=== PATIENT | female | born 1970 | race Caucasian/White ===

== ENCOUNTER → 2018-04-19 08:17 | Outpatient (CLI) | payer OTHER, SELFPAY ==
[2018-04-19 09:55] LABS: Add Manual Diff / Slide Review NO; Basophils Absolute Auto 100 /uL (0-100); Basophils Percent Auto 0.8 % (0-2); Eosinophils Absolute Auto 400 /uL (0-450); Eosinophils Percent Auto 5.2 % (2-4); Hematocrit 44.2 % (36-46); Hemoglobin 14.6 g/dL (12.0-16.0); Lymphocytes Absolute Auto 1800 /uL (1100-4500); Lymphocytes Percent Auto 25.4 % (25-40); Mean Corpuscular HGB Conc 32.9 % (30-36); Mean Corpuscular Hemoglobin 31.6 PG (26-34); Monocytes Absolute Auto 300 /uL (0-900); Monocytes Percent Auto 4.6 % (3-14); Neutrophils Absolute Auto 4600 /uL (1500-7000); Platelet Count 185 X10^3/uL (150-400); Red Blood Cell Count 4.61 X10^6/uL (4.0-5.2); White Blood Cell Count 7.2 X10^3/uL (4.5-11.0)
[2018-04-19 09:58] LABS: HEMOLYSIS < 15 (0-50); Iron 72 ug/dL (37-170)
[2018-04-19 10:01] LABS: Alanine Aminotransferase 33 IU/L (9-52); Albumin 4.2 g/dL (3.5-5.0); Albumin Globulin Ratio 1.3 (1.0-2.8); Alkaline Phosphatase 81 U/L (38-126); Aspartate Aminotransferase 15 IU/L (14-36); BUN Creatinine Ratio 25.7 (6-22); Bilirubin Total 0.4 mg/dL (0.2-1.3); Blood Urea Nitrogen 18 mg/dL (7-17); Calcium 9.1 mg/dL (8.4-10.2); Carbon Dioxide 26 mmol/L (22-32); Chloride 103 mmol/L (98-107); Estimated Glomerular Filt Rate > 60.0 mL/min (>60); Globulin 3.2 g/dL (1.7-4.1); Glucose 96 mg/dL (70-100); HEMOLYSIS < 15 (0-50); Potassium 4.2 mmol/L (3.4-5.1); Sodium 139 mmol/L (137-145); Total Protein 7.4 g/dL (6.3-8.2)
[2018-04-19 10:11] LABS: Percent Iron Saturation 25 % (15-50); Total Iron Binding Capacity 285 ug/dL (265-497); Transferrin 213 mg/dL (206-381)
[2018-04-19 10:40] LABS: Ferritin 67.8 ng/mL (6.27-137)
[2018-04-19 11:10] LABS: Vitamin B12 386 pg/mL (239-931)
== END ==
PROVIDERS: PCP Physician Assistant; Visit Provider Nurse Practitioner Family
DX: R41.89 Other symptoms and signs involving cognitive functions and awareness (principal); R53.83 Other fatigue; R15.9 Full incontinence of feces; E03.9 Hypothyroidism, unspecified
CPT/HCPCS: 36415; 80053; 82607; 82728; 82746; 83540; 83550; 84443; 85025

== ENCOUNTER → 2018-04-25 05:56 | Outpatient (CLI) | payer OTHER, SELFPAY ==
--- NOTE | 2018-04-25 05:57 | DI.MRI.S_ITS ---
PROCEDURE: MR HEAD/BRAIN WO/W CON INDICATIONS: cognitive changes x 6 months, coordination changes, headache TECHNIQUE: Noncontrast axial T1 spin echo, axial T2 fast spin echo, sagittal and axial FLAIR, coronal T2 fast spin echo, axial gradient echo, axial diffusion and ADC through the brain. After the administration of contrast, axial and coronal 3D VIBE or T1 spin echo with fat saturation through the brain. COMPARISON: None. FINDINGS: Image quality: Excellent. CSF Spaces: Basal cisterns are patent. No extra-axial fluid collections. Ventricles are normal in size and shape. Brain: No midline shift. No intracranial bleeds or masses. No abnormal intracranial enhancement. The brainstem appears normal. Diffusion-weighted images demonstrate no acute ischemic insults. No chronic ischemic insults. Normal intravascular flow voids are present. Skull and face: Calvarial marrow is normal in signal. Orbits appear normal. Bilateral maxillary sinus disease, mild (right greater than left). There is minimal sphenoid sinus mucosal enhancement IMPRESSION: Overall, no specific intracranial signal abnormality identified. No abnormal enhancement. Mild sinus disease as above Dictated by: Richard Segundo M.D. on 04/25/2018 at 9:16 Approved by: Richard Segundo M.D. on 04/25/2018 at 9:21
== END ==
PROVIDERS: PCP Physician Assistant; Visit Provider Nurse Practitioner Family
DX: R41.89 Other symptoms and signs involving cognitive functions and awareness (principal); R27.8 Other lack of coordination; R51 Headache; J32.0 Chronic maxillary sinusitis; R15.9 Full incontinence of feces; R53.83 Other fatigue
CPT/HCPCS: 70553

== ENCOUNTER → 2018-05-09 12:36 | Outpatient (CLI) | payer OTHER, SELFPAY ==
[2018-05-09 13:27] LABS: C-Reactive Protein Quant 1.2 mg/dL (<1.0)
[2018-05-12 21:23] LABS: (tTG) Ab, IgA < 1 U/mL
[2018-05-13 13:03] LABS: 18 kD IgG Band Nonreactive; 23 kD IgG Band Nonreactive; 28 kD IgG Band Nonreactive; 30 kD IgG Band Nonreactive; 39 kD IgG Band Nonreactive; 41 kD IgG Bands Reactive; 45 kD IgG Band Nonreactive; 58 kD IgG Band Nonreactive; 66 kD IgG Band Nonreactive; 93 kD IgG Bands Reactive
[2018-05-13 14:53] LABS: Thyroglobulin Antibodies 5 IU/mL (< 2); Thyroglobulin Level 3.7 ng/mL (2.8-40.9)
[2018-05-14 21:48] LABS: Methylmalonic Acid 158 nmol/L (87-318)
== END ==
PROVIDERS: Family Provider Physician Assistant; PCP Physician Assistant; Visit Provider Psychiatry & Neurology Neurology
DX: R32 Unspecified urinary incontinence (principal); R41.841 Cognitive communication deficit; R15.9 Full incontinence of feces
CPT/HCPCS: 36415; 83516; 83921; 84432; 86038; 86140; 86255; 86618; 86800

== ENCOUNTER → 2018-07-25 07:51 | Outpatient (CLI) | payer OTHER, SELFPAY ==
--- NOTE | 2018-07-25 | DI.MRI.S_ITS ---
PROCEDURE: MR THORACIC SPINE WO CON INDICATIONS: URINARY AND FECAL INCONTINENCE. LEFT SIDED MID BACK PAIN TECHNIQUE: Noncontrast sagittal T1 spine echo and T2 fast spin echo, sagittal STIR, axial T1 and T2 fast spin echo through the thoracic spine. COMPARISON: None. FINDINGS: Image quality: Excellent. Alignment and Curvature: There is normal bony alignment. Bone Marrow: Marrow is of normal overall signal. No acute vertebral body compression fractures. Spinal Cord: Visualized spinal cord is normal in size and signal. Paraspinous Soft Tissues: No paravertebral masses. Miscellaneous: On axial images, central canal and foramina appear widely patent at all scanned levels. IMPRESSION: 1. Negative examination. 2. No central stenosis 3. No neural foraminal narrowing Or print no neural impingement 5. No abnormal spinal cord signal. Dictated by: Azalea Gallardo MD, PhD on 07/25/2018 at 14:57 Approved by: Azalea Gallardo MD, PhD on 07/25/2018 at 15:00
--- NOTE | 2018-07-25 | DI.MRI.S_ITS ---
PROCEDURE: MR LUMBAR SPINE WO CON INDICATIONS: URINARY AND FECAL INCONTINENCE. RIGHT LEG PAIN TECHNIQUE: Noncontrast sagittal T1 spin echo and T2 fast echo, sagittal STIR, axial T1 and T2 fast spin echo through the lumbar spine. In cases with scoliosis, additional coronal T2 fast spin echo may be performed. COMPARISON: None. FINDINGS: Image quality: Excellent. Alignment and Curvature: There is normal bony alignment. Bone Marrow: Marrow is of normal overall signal. No acute vertebral body compression fractures. Spinal Cord: Conus medullaris terminates at the L1 level. Visualized cord demonstrates normal signal and size. Paraspinous Soft Tissues: No paravertebral masses. L1-L2: Normal appearance. L2-L3: Normal appearance. L3-L4: Slight loss of the signal. Minimal, diffuse disc bulge. No central stenosis. No neural foraminal narrowing. No neural impingement. L4-L5: Loss of disc signal. Minimal, diffuse disc bulge. No central stenosis. No neural foraminal narrowing. No neural impingement. Focal high intensity zone noted in the right foraminal annulus compatible with a fissure. L5-S1: Loss of disc signal. Minimal, diffuse disc bulge. Mild bilateral facet hypertrophy. No central stenosis. No neural foraminal narrowing. No neural impingement. Focal high intensity zone is noted in the right foraminal annulus compatible with a fissure. IMPRESSION: 1. Mild L3-L4, L4-L5 and L5-S1 degenerative disc disease. 2. Mild L5-S1 facet arthropathy. 3. No central stenosis. 4. No neural foraminal narrowing. 5. No neural impingement. 6. L4-L5 and L5-S1 disc annulus fissures. Dictated by: Azalea Gallardo MD, PhD on 07/25/2018 at 15:00 Approved by: Azalea Gallardo MD, PhD on 07/25/2018 at 15:04
--- NOTE | 2018-07-25 | DI.MRI.S_ITS ---
PROCEDURE: MR CERVICAL SPINE WO CON INDICATIONS: URINARY AND FECAL INCONTINENCE. RIGHT SIDED NECK PAIN TECHNIQUE: Noncontrast sagittal T1 spin echo and T2 fast spin echo, sagittal STIR, foraminal oblique sagittal T2 fast spin echo, and axial gradient echo or T2 fast spin echo through the cervical spine. COMPARISON: None. FINDINGS: Image quality: Excellent. Alignment and Curvature: There is normal bony alignment. Bone Marrow: Marrow demonstrates normal overall signal. There is mild reactive signal within the endplates adjacent to the C4-C5 and C5-C6 intervertebral disc. Spinal Cord: Visualized spinal cord has normal size and signal. No cerebellar tonsillar herniation. Paraspinous Soft Tissues: No paravertebral masses. Prevertebral soft tissues are normal in thickness. C2-C3: Normal appearance. C3-C4: Normal appearance. C4-C5: Mild disc height loss and desiccation. Mild diffuse disc bulge. Mild facet hypertrophy bilaterally. Mild canal stenosis. Mild bilateral foraminal stenosis. C5-C6: Mild disc height loss and desiccation. Moderate diffuse disc bulge. Mild facet hypertrophy bilaterally. There is moderate to severe canal stenosis. Mild cord flattening. Moderate left and mild right foraminal stenosis. C6-C7: Mild disc desiccation. No significant canal, nor foraminal stenosis. C7-T1: Normal appearance. IMPRESSION: 1. Multilevel degenerative disc and facet disease. 2. Multilevel canal stenoses, worst at C5-C6, where there is moderate to severe canal stenosis with mild cord flattening. 3. Multilevel foraminal stenoses, worst on the left at C5-C6 where there is moderate foraminal stenosis. Dictated by: Dylan Benitez M.D. on 07/25/2018 at 11:43 Approved by: Dylan Benitez M.D. on 07/25/2018 at 11:51
== END ==
PROVIDERS: Family Provider Physician Assistant; PCP Physician Assistant; Visit Provider Psychiatry & Neurology Neurology
DX: M50.321 Other cervical disc degeneration at C4-C5 level (principal); M79.604 Pain in right leg; M48.02 Spinal stenosis, cervical region; M47.817 Spondylosis without myelopathy or radiculopathy, lumbosacral region; M51.36 Other intervertebral disc degeneration, lumbar region; M51.37 Other intervertebral disc degeneration, lumbosacral region; R32 Unspecified urinary incontinence; R15.9 Full incontinence of feces
CPT/HCPCS: 72141; 72146; 72148

== ENCOUNTER → 2018-12-29 09:53 | Outpatient (CLI) | payer OTHER, SELFPAY | PROVIDERS: Family Provider Physician Assistant; PCP Physician Assistant; Visit Provider Physician Assistant | DX: N30.01 Acute cystitis with hematuria (principal) | CPT/HCPCS: 87077; 87086; 87186 ==

== ENCOUNTER → 2019-04-04 12:47 | Outpatient (CLI) | payer OTHER, SELFPAY | PROVIDERS: Family Provider Physician Assistant; PCP Physician Assistant; Visit Provider Physician Assistant | DX: R30.0 Dysuria (principal) | CPT/HCPCS: 87077; 87086; 87186 ==

== ENCOUNTER → 2020-06-15 14:44 | Outpatient (CLI) | payer OTHER, SELFPAY ==
[2020-06-15 15:04] LABS: Hematocrit 40.7 % (36-46); Hemoglobin 13.6 g/dL (12.0-16.0); Mean Corpuscular HGB Conc 33.3 % (30-36); Mean Corpuscular Volume 93.1 fL (80-100); Platelet Count 205 X10^3/uL (150-400); Red Blood Cell Count 4.37 X10^6/uL (4.0-5.2); Red Cell Distribution Width 12.7 % (11.6-14.8); White Blood Cell Count 8.2 X10^3/uL (4.5-11.0)
[2020-06-15 15:15] LABS: Alanine Aminotransferase 20 IU/L (<35); Albumin 4.4 g/dL (3.5-5.0); Albumin Globulin Ratio 1.4 (1.0-2.8); Alkaline Phosphatase 93 U/L (38-126); Aspartate Aminotransferase 19 IU/L (14-36); BUN Creatinine Ratio 31.5 (6-22); Bilirubin Total 0.5 mg/dL (0.2-1.3); Blood Urea Nitrogen 23 mg/dL (7-17); Calcium 9.9 mg/dL (8.4-10.2); Carbon Dioxide 27 mmol/L (22-32); Chloride 106 mmol/L (98-107); Estimated Glomerular Filt Rate > 60.0 mL/min (>60); Globulin 3.1 g/dL (1.7-4.1); Glucose 90 mg/dL (70-100); HEMOLYSIS < 15 (0-50); Potassium 3.9 mmol/L (3.4-5.1); Sodium 140 mmol/L (137-145); Total Protein 7.5 g/dL (6.3-8.2)
[2020-06-15 15:32] LABS: Free T4, Direct Thyroxine 1.15 ng/dL (0.78-2.19)
[2020-06-15 15:47] LABS: Thyroid Stimulating Hormone 0.124 uIU/mL (0.47-4.68)
== END ==
PROVIDERS: Family Provider Physician Assistant; PCP Nurse Practitioner Family; Referring Provider Nurse Practitioner Family; Visit Provider Nurse Practitioner Family
DX: E03.9 Hypothyroidism, unspecified (principal); Z00.00 Encounter for general adult medical examination without abnormal findings
CPT/HCPCS: 36415; 80053; 84439; 84443; 85027

== ENCOUNTER → 2020-07-12 15:20 | Outpatient (CLI) | payer OTHER, SELFPAY ==
[2020-07-12 16:19] LABS: Hemoglobin 13.8 g/dL (12.0-16.0); Mean Corpuscular HGB Conc 34.5 % (30-36); Mean Corpuscular Hemoglobin 32.3 PG (26-34); Mean Corpuscular Volume 93.4 fL (80-100); Platelet Count 200 X10^3/uL (150-400); Red Blood Cell Count 4.28 X10^6/uL (4.0-5.2); White Blood Cell Count 7.3 X10^3/uL (4.5-11.0)
[2020-07-12 17:20] LABS: Alanine Aminotransferase 21 IU/L (<35); Albumin 4.1 g/dL (3.5-5.0); Albumin Globulin Ratio 1.2 (1.0-2.8); Alkaline Phosphatase 93 U/L (38-126); Aspartate Aminotransferase 22 IU/L (14-36); BUN Creatinine Ratio 18.8 (6-22); Bilirubin Total 0.7 mg/dL (0.2-1.3); Blood Urea Nitrogen 13 mg/dL (7-17); Calcium 9.5 mg/dL (8.4-10.2); Carbon Dioxide 28 mmol/L (22-32); Chloride 104 mmol/L (98-107); Cholesterol 145 mg/dL (140-199); Estimated Glomerular Filt Rate > 60.0 mL/min (>60); Globulin 3.3 g/dL (1.7-4.1); Glucose 112 mg/dL (70-100); HDL Cholesterol 39 mg/dL (40-60); HEMOLYSIS < 15 (0-50); LDL Cholesterol Calculated 87 mg/dL (<100); Potassium 3.8 mmol/L (3.4-5.1); Sodium 138 mmol/L (137-145); Total Protein 7.4 g/dL (6.3-8.2); Triglycerides 96 mg/dL (35-150)
[2020-07-12 17:52] LABS: TSH w/ Reflex to FT4 0.94 uIU/mL (0.47-4.68)
[2020-07-12 18:40] LABS: Free T4, Direct Thyroxine 1.32 ng/dL (0.78-2.19)
[2020-07-13 16:41] LABS: Hemoglobin A1C% w Est Avg Glu 5.1 % (4.0-6.0)
== END ==
PROVIDERS: Family Provider Physician Assistant; PCP Nurse Practitioner Family; Referring Provider Nurse Practitioner Family; Visit Provider Nurse Practitioner Family
DX: F32.9 Major depressive disorder, single episode, unspecified (principal); Z13.6 Encounter for screening for cardiovascular disorders; E03.9 Hypothyroidism, unspecified; R73.09 Other abnormal glucose
CPT/HCPCS: 36415; 80053; 80061; 83036; 84439; 84443; 85027

== ENCOUNTER → 2021-07-17 09:21 | Outpatient (CLI) | payer OTHER, SELFPAY ==
[2021-07-17 09:51] LABS: Hematocrit 40.4 % (36-46); Hemoglobin 13.7 g/dL (12.0-16.0); Mean Corpuscular Volume 91.3 fL (80-100); Platelet Count 172 X10^3/uL (150-400); Red Blood Cell Count 4.42 X10^6/uL (4.0-5.2); Red Cell Distribution Width 13.2 % (11.6-14.8); White Blood Cell Count 6.8 X10^3/uL (4.5-11.0)
[2021-07-17 10:05] LABS: Alanine Aminotransferase 17 IU/L (<35); Albumin 4.2 g/dL (3.5-5.0); Albumin Globulin Ratio 1.2 (1.0-2.8); Alkaline Phosphatase 83 U/L (38-126); Aspartate Aminotransferase 17 IU/L (14-36); BUN Creatinine Ratio 18.8 (6-22); Bilirubin Total 0.4 mg/dL (0.2-1.3); Blood Urea Nitrogen 16 mg/dL (7-17); Calcium 9.2 mg/dL (8.4-10.2); Carbon Dioxide 27 mmol/L (22-32); Chloride 108 mmol/L (98-107); Cholesterol 166 mg/dL (140-199); Estimated Glomerular Filt Rate > 60 mL/min (>60); Globulin 3.6 g/dL (1.7-4.1); Glucose 104 mg/dL (70-100); HDL Cholesterol 46 mg/dL (40-60); HEMOLYSIS < 15 (0-50); LDL Cholesterol Calculated 104 mg/dL (<100); Potassium 4.5 mmol/L (3.4-5.1); Sodium 142 mmol/L (137-145); Total Protein 7.8 g/dL (6.3-8.2); Triglycerides 80 mg/dL (35-150)
[2021-07-17 10:21] LABS: Free T4, Direct Thyroxine 1.16 ng/dL (0.78-2.19)
[2021-07-17 10:35] LABS: Thyroid Stimulating Hormone 0.075 uIU/mL (0.47-4.68)
== END ==
PROVIDERS: Family Provider Physician Assistant; PCP Nurse Practitioner Family; Referring Provider Nurse Practitioner Family; Visit Provider Nurse Practitioner Family
DX: Z00.00 Encounter for general adult medical examination without abnormal findings (principal); F32.1 Major depressive disorder, single episode, moderate; F41.9 Anxiety disorder, unspecified; E03.9 Hypothyroidism, unspecified; Z13.6 Encounter for screening for cardiovascular disorders
CPT/HCPCS: 36415; 80053; 80061; 84439; 84443; 85027

== ENCOUNTER → 2021-08-29 11:06 | Outpatient (CLI) | payer OTHER, SELFPAY ==
[2021-08-29 12:57] LABS: Thyroid Stimulating Hormone 0.196 uIU/mL (0.47-4.68)
== END ==
PROVIDERS: Family Provider Physician Assistant; PCP Nurse Practitioner; Referring Provider Physician Assistant Medical; Visit Provider Physician Assistant Medical
DX: L73.2 Hidradenitis suppurativa (principal); E03.9 Hypothyroidism, unspecified; F41.9 Anxiety disorder, unspecified; F51.05 Insomnia due to other mental disorder; F99 Mental disorder, not otherwise specified
CPT/HCPCS: 36415; 84443

== ENCOUNTER 2022-02-18 09:25 | Emergency (ER) | payer OTHER, SELFPAY ==
[2022-02-18] VITALS (8 sets, daily range): BP systolic 109–142; BP diastolic 53–68; PULSE 61–84; RESP 18; TEMP 36.1; O2SAT 97–100; BMI 28.8
[2022-02-18] MEDS: ONDANSETRON 4 MG/2 ML INJ IV (09:51)
[2022-02-18] MEDS: PANTOPRAZOLE 40 MG VIAL IV (09:51)
[2022-02-18] MEDS: HYDROMORPHONE 0.5 MG INJ IV (09:51)
[2022-02-18] MEDS: SODIUM CHLORIDE 0.9% 1,000 ML 1000 ML IV (09:52)
--- NOTE | 2022-02-18 09:55 | ED.ABDPAIN ---
HPI - Abdominal Pain General Chief Complaint: Abdominal Pain Stated Complaint: abd pain, vomiting Time Seen by Provider: 02/18/22 09:31 Source: patient and family Mode of arrival: Family Vehicle History of Present Illness HPI narrative: Patient is a 51-year-old female history of hypothyroid appendectomy cholecystectomy hysterectomy presenting today with sudden onset of lower abdominal pain. She is in quite a bit of pain she said it started around 6:00 a.m.. She was in her normal state of health yesterday. She feels nauseous she has not vomited. She denies any fever. She denies any flank pain. She does not feel like her abdomen is distended. She is never had anything quite like this before she did have kidney stones once a long time ago. Related Data Previous Rx's Medication Instructions Recorded hydroxyzine pamoate 25 mg capsule 25 mg PO TID PRN anxiety #90 caps 04/19/21 clindamycin phosphate 1 % topical 1 applic topical BID #60 mL 07/17/21 solution doxycycline monohydrate 100 mg See Rx Instructions .Route 08/28/21 capsule .COMPLEX #46 caps sertraline 100 mg tablet 200 mg PO DAILY #60 tabs 08/28/21 levothyroxine 50 mcg tablet 50 mcg PO DAILY #90 tabs 08/29/21 alprazolam 0.25 mg tablet 0.25 mg PO BEDTIME PRN 09/07/21 Sleeplessness #30 tabs eszopiclone 2 mg tablet 2 mg PO BEDTIME #90 tabs 10/03/21 hydrocodone 5 mg-acetaminophen 325 1 tab PO Q6H PRN pain #10 tabs 02/18/22 mg tablet ondansetron 4 mg disintegrating 4 mg PO Q8H #10 tabs 02/18/22 tablet Allergies Allergy/AdvReac Type Severity Reaction Status Date / Time ciprofloxacin Allergy Severe DOMINIK Verified 07/17/21 09:56 JOHNSONS SYNDROME penicillin G Allergy Severe Anaphylaxic Verified 07/17/21 09:56 Shock Review of Systems Review of Systems Narrative: GENERAL: Denies chills, fatigue, malaise, fever, sweats, travel HEENT: Denies sinus pain, ear pain, sore throat, difficulty swallowing, neck pain RESPIRATORY: Denies dyspnea, cough, wheezing, hemoptysis, sputum. CARDIOVASCULAR: Denies chest pain, palpitations, orthopnea, edema GASTROINTESTINAL: See HPI : Denies dysuria, frequency, incontinence, hematuria, urinary retention, flank pain. MUSCULOSKELETAL: Denies weakness, joint pain, or bony pain SKIN: No rash, no erythema, no pruritus NEUROLOGIC: Denies weakness, dizziness, headache, numbness, change in speech, confusion PSYCHIATRIC: No concerning psychosocial issues. 12 point review of systems is negative except for those stated above and HPI Patient History Medical History Anxiety Current smoker Depression (2004) Hidradenitis suppurativa (1999) Hypothyroidism Insomnia Social History Smoking Status: Current some day smoker Tobacco: How many years used: 30 quit status: considering quitting second hand exposure: Yes alcohol intake: never substance use type: does not use Smoking Status: Current some day smoker tobacco type: e-cigarettes and vaping alcohol intake frequency: 0-2 drinks per day Substance Use Type: does not use Exam Initial Vital Signs Initial Vital Signs: Vital Signs Temperature 97.0 F L 02/18/22 09:39 Pulse Rate 73 02/18/22 09:39 Respiratory Rate 18 02/18/22 09:39 Blood Pressure 142/68 H 02/18/22 09:39 Pulse Oximetry 97 02/18/22 09:39 Oxygen Delivery Method 02/18/22 09:39 GENERAL: Alert 51-year-old female appears in severe pain moaning actively dry heaving HEENT: Head atraumatic,EOMI, pupils reactive, face symmetric, moist mucous membranes CARDIOVASCULAR: Regular rate and rhythm without murmurs, rubs or gallops. RESPIRATORY: Breath sounds equal bilaterally, no wheezes rales or rhonchi. ABDOMEN: Soft, suprapubic pain no guarding no rebound no upper abdominal pain no epigastric pain or right upper quadrant pain : No CVA tenderness EXTREMITIES: Normal range of motion, no clubbing or edema. Neurovascularly intact NEUROLOGICAL: Alert and oriented x4. SKIN: Warm, dry, no laceration, no petechiae, no rashes or lesions. Course Orders Ordered: ED Orders 02/18/22 09:35 Covid-19 + FLU A/B + RSV - PCR Stat 02/18/22 09:40 Complete Blood Count AUTO DIFF Stat Comprehensive Metabolic Panel Stat Lactate (Lactic Acid) Stat Lipase Stat Thyroid Stimulating Hormone Routine 02/18/22 09:56 CT abdomen pelvis w con Stat 02/18/22 11:26 Urinalysis and Microscopic Stat Discontinued Medications Hydromorphone HCl (Hydromorphone 0.5 Mg Inj) 0.5 mg IV NOW ONE Stop: 02/18/22 09:32 Last Admin: 02/18/22 09:51 Dose: 0.5 mg Documented By: NR Hydromorphone HCl (Hydromorphone 1 Mg Inj) 1 mg IV NOW ONE Stop: 02/18/22 09:57 Last Admin: 02/18/22 10:19 Dose: 1 mg Documented By: NR Sodium Chloride (Normal Saline 0.9%) 1,000 mls @ 1,000 mls/hr IV BOLUS ONE Stop: 02/18/22 10:31 Last Infusion: 02/18/22 11:17 Dose: 0 mls/hr Documented By: Admin: 02/18/22 09:52 Dose: 1,000 mls/hr Documented By: NR Ketorolac Tromethamine (Ketorolac 30 Mg/Ml Vial) 15 mg IV NOW ONE Stop: 02/18/22 11:20 Last Admin: 02/18/22 11:28 Dose: 15 mg Documented By: NR Ondansetron HCl (Ondansetron 4 Mg/2 Ml Inj) 4 mg IV NOW ONE Stop: 02/18/22 09:32 Last Admin: 02/18/22 09:51 Dose: 4 mg Documented By: NR Pantoprazole Sodium (Pantoprazole 40 Mg Vial) 40 mg IV NOW ONE Stop: 02/18/22 09:32 Last Admin: 02/18/22 09:51 Dose: 40 mg Documented By: NR Vital Signs Vital signs: Vital Signs - 8 hr 02/18/22 09:39 02/18/22 09:52 02/18/22 10:00 Temperature 97.0 F L Pulse Rate 73 66 61 Respiratory Rate 18 Blood Pressure 142/68 H Pulse Oximetry 97 99 99 Oxygen Delivery Method Room Air 02/18/22 10:58 02/18/22 10:59 02/18/22 10:59 Temperature Pulse Rate 83 75 Respiratory Rate Blood Pressure 122/59 L Pulse Oximetry 97 99 Oxygen Delivery Method 02/18/22 11:00 02/18/22 11:00 02/18/22 12:12 Temperature Pulse Rate 84 Respiratory Rate Blood Pressure 110/59 L Pulse Oximetry 99 100 Oxygen Delivery Method 02/18/22 12:13 02/18/22 12:13 Temperature Pulse Rate 76 Respiratory Rate Blood Pressure 109/53 L Pulse Oximetry 100 Oxygen Delivery Method MDM - Abdominal Pain Lab Data Result diagrams: 02/18/22 09:40 02/18/22 09:40 Labs: Lab Results 02/18/22 02/18/22 02/18/22 Range/Units 09:35 09:40 09:40 WBC 8.4 (4.5-11.0) X10^3/uL RBC 4.53 (4.0-5.2) X10^6/uL Hgb 13.9 (12.0-16.0) g/dL Hct 41.4 (36-46) % MCV 91.5 (80-100) fL MCH 30.7 (26-34) PG MCHC 33.5 (30-36) % RDW 13.3 (11.6-14.8) % Plt Count 205 (150-400) X10^3/uL Neut % (Auto) 74.9 (50-75) % Lymph % (Auto) 19.1 L (25-40) % [place] % (Auto) 3.2 (3-14) % Eos % (Auto) 1.8 L (2-4) % Baso % (Auto) 1.0 (0-2) % Neut # (Auto) 6300 (1943-4707) /uL Lymph # (Auto) 1600 (4879-6245) /uL [place] # (Auto) 300 (0-900) /uL Eos # (Auto) 100 (0-450) /uL Baso # (Auto) 100 (0-100) /uL Sodium 139 (137-145) mmol/L Potassium 3.6 (3.4-5.1) mmol/L Chloride 104 (98-107) mmol/L Carbon Dioxide 23 (22-32) mmol/L BUN 20 H (7-17) mg/dL Creatinine 0.79 (0.52-1.04) mg/dL Estimated GFR > 60 (>60) mL/min BUN/Creatinine Ratio 25.3 H (6-22) Glucose 139 H (70-100) mg/dL Lactate (0.7-2.1) mmol/L Calcium 9.4 (8.4-10.2) mg/dL Total Bilirubin 0.4 (0.2-1.3) mg/dL AST 17 (14-36) IU/L ALT 20 (<35) IU/L Alkaline Phosphatase 92 (38-126) U/L Total Protein 8.0 (6.3-8.2) g/dL Albumin 4.3 (3.5-5.0) g/dL Globulin 3.7 (1.7-4.1) g/dL Albumin/Globulin Ratio 1.2 (1.0-2.8) Lipase 85 (23-300) U/L TSH (0.47-4.68) uIU/mL Urine Color Urine Appearance Urine pH (4.5-8.0) Ur Specific [place] (1.000-1.035) Urine Protein (Negative) Urine Glucose (UA) (Negative) g/dL Urine Ketones (NEGATIVE) Urine Occult Blood (Negative) Urine Nitrate (Negative) Urine Bilirubin (NEGATIVE) Urine Urobilinogen (0.2) E.U./dL Ur Leukocyte Esterase (NEGATIVE) Urine RBC (0-5/HPF) Urine WBC (0-5/HPF) Ur Squamous Epith Cells (0-5/HPF) Urine Bacteria (None) Ur Culture Indicated? SARS-CoV-2 (PCR) Negative (Negative) Influenza A (RT-PCR) Flu a negative (NEGATIVE) Influenza B (RT-PCR) Flu b negative (NEGATIVE) RSV (PCR) Negative (Negative) 02/18/22 02/18/22 02/18/22 Range/Units 09:40 09:40 11:26 WBC (4.5-11.0) X10^3/uL RBC (4.0-5.2) X10^6/uL Hgb (12.0-16.0) g/dL Hct (36-46) % MCV (80-100) fL MCH (26-34) PG MCHC (30-36) % RDW (11.6-14.8) % Plt Count (150-400) X10^3/uL Neut % (Auto) (50-75) % Lymph % (Auto) (25-40) % [place] % (Auto) (3-14) % Eos % (Auto) (2-4) % Baso % (Auto) (0-2) % Neut # (Auto) (3124-8295) /uL Lymph # (Auto) (2400-6501) /uL [place]comb # (Auto) (0-900) /uL Eos # (Auto) (0-450) /uL Baso # (Auto) (0-100) /uL Sodium (137-145) mmol/L Potassium (3.4-5.1) mmol/L Chloride (98-107) mmol/L Carbon Dioxide (22-32) mmol/L BUN (7-17) mg/dL Creatinine (0.52-1.04) mg/dL Estimated GFR (>60) mL/min BUN/Creatinine Ratio (6-22) Glucose (70-100) mg/dL Lactate 2.1 (0.7-2.1) mmol/L Calcium (8.4-10.2) mg/dL Total Bilirubin (0.2-1.3) mg/dL AST (14-36) IU/L ALT (<35) IU/L Alkaline Phosphatase (38-126) U/L Total Protein (6.3-8.2) g/dL Albumin (3.5-5.0) g/dL Globulin (1.7-4.1) g/dL Albumin/Globulin Ratio (1.0-2.8) Lipase (23-300) U/L TSH 9.31 H (0.47-4.68) uIU/mL Urine Color Yellow Urine Appearance Clear Urine pH 5.0 (4.5-8.0) Ur Specific [place] 1.010 (1.000-1.035) Urine Protein Negative (Negative) Urine Glucose (UA) Negative (Negative) g/dL Urine Ketones Negative (NEGATIVE) Urine Occult Blood 3+ H (Negative) Urine Nitrate Negative (Negative) Urine Bilirubin Negative (NEGATIVE) Urine Urobilinogen 0.2 (0.2) E.U./dL Ur Leukocyte Esterase Negative (NEGATIVE) Urine RBC 10-30/hpf H (0-5/HPF) Urine WBC 0-1/hpf (0-5/HPF) Ur Squamous Epith Cells 0-1 /hpf (0-5/HPF) Urine Bacteria Occasional (0-1) (None) Ur Culture Indicated? Cult not indicated SARS-CoV-2 (PCR) (Negative) Influenza A (RT-PCR) (NEGATIVE) Influenza B (RT-PCR) (NEGATIVE) RSV (PCR) (Negative) Point of care testing: Urine Dip Bedside Urine Glucose Negative Bedside Urine Bilirubin - Negative Bedside Urine Ketone - Negative Urine Specific [place] 1.010 Bedside Urine Occult Blood +++ Bedside Urine pH 5.5 Bedside Urine Protein - Negative Bedside Urine Urobilinogen - Negative Bedside Urine Nitrite - Negative Bedside Urine Leukocytes - Negative Esterase Imaging Data CT scan - abdomen/pelvis: Radiologist's Impression: CT Scan Report Signed Patient: Agata Garcia MR#: [id number] : 1970 Acct:[id number] Age/Sex: 51 / F Date of Service: 02/18/22 Loc: ED Accession Number: [id number] ?? Procedure: CT abdomen pelvis w con Ordering Provider: Dina Tom D.O. PROCEDURE:? CT ABDOMEN PELVIS W CON ? INDICATIONS:? severe lower pain with vomiting ? TECHNIQUE:? After the administration of intravenous contrast, axial sections acquired from the lung bases to the pubic symphysis.? Coronal and sagittal reformats were performed.? For radiation dose reduction, the following was used:? automated exposure control, adjustment of mA and/or kV according to patient size.? ? COMPARISON:? [facility], CT, ABDOMEN/PELVIS WITH CONTRAST, 07/20/2012, 10:51. ? FINDINGS:? Image quality:? Good ? Lower chest:? Scattered scarring/atelectasis ? Solid organs:? 1.3 cm enhancing region at the liver dome, faintly visible in 2013, likely benign. Gallbladder is absent.? Prominent biliary tree post cholecystectomy.? No pathologic dilation of the pancreatic duct.? No splenomegaly.? No adrenal nodules.? No left hydronephrosis.? There is a 3-4 mm right distal ureter stone.? Moderate upstream hydronephrosis with slightly delayed nephrogram. ? Vessels and lymph nodes:? No abdominal aortic aneurysm or pathologic adenopathy by size criteria. ? Bowel and peritoneum:? No bowel obstruction.? No pathologic ascites. ? Body wall:? Anterior abdominal wall hernia repair changes, with underlying postsurgical fluid containing material. ? Pelvis:? Hysterectomy.? Bladder is under distended limiting evaluation ? Bones:? No acute or suspicious osseous abnormality. ? ? IMPRESSION:? 3-4 mm right distal ureter stone with moderate upstream hydronephrosis and CT evidence of obstructive nephropathy. Other findings as above.? ? ? Approved by: Jerod Spear M.D. on 02/18/2022 at 9:51? [facility] Narrative Medical decision making narrative: Patient is a 51-year-old female presenting with severe pain. She is found have a non obstruction 3-4 mm left ureteral stone. There is no evidence of acute kidney injury or UTI. Pain is better controlled with Dilaudid. Blood work is otherwise reassuring. At this time there is no indication for further workup or admission to the hospital. There are child care team lead visits reviewed for anxiety and depression last is 11/01/2021, no significant findings. Discharge Plan Departure Patient Disposition: Home Clinical Impression: Kidney stones Instructions: DI for Kidney Stones Activity Restrictions/Additional Instructions: *You have been diagnosed with kidney stone left side 3-4 mm *What to do: At this time increase fluid intake I anticipate that you pass the stone in the next 24-48 hours *Continue to take medications as directed--> SENT TO [facility] Motrin 600 mg every 6 hours if needed [place] 1 tablet every 6 hours if needed for severe pain Zofran 4 mg every 8 hours if needed for nausea or vomiting *Follow up with your primary care provider in 2-3 days or call [phone] *Return to ER if you should have persistent vomiting pain not controlled despite medication or any new, worsening or concerning symptoms CONTROLLED SUBSTANCE DISCHARGE (Narcotoic/benzodiazepine/Flexeril/Phenergan) 1. You have been prescribed narcotic medications, it does have acetaminophen/Tylenol/paracetamol in it, DO NOT TAKE MORE THAN 4,00mg in 24 hours of Tylenol. TRAMADOL DOES NOT CONTAIN TYLENOL 2. Please understand that we cannot provide further refills of narcotics, benzodiazepines or controlled substances through the ED and her pain management will need to be through your provider. 3. While on these medications you cannot drive or operate heavy machinery. 4. You cannot sign legal documents or perform any duties such as this. 5. As long as you're taking opiate pain medications he should also be taking a stool softener such as Colace, Dulcolax, MiraLAX or prune juice, to help avoid constipation. Prescriptions: New hydrocodone-acetaminophen 5-325 mg tablet 1 tab PO Q6H PRN (Reason: pain) Qty: 10 0RF ondansetron 4 mg tablet,disintegrating 4 mg PO Q8H Qty: 10 0RF No Action doxycycline monohydrate 100 mg capsule See Rx Instructions .ROUTE .COMPLEX Qty: 46 0RF Dose Instruction: take 1 capsule by mouth twice a day for 2 weeks then once daily UNTIL CLEAR Rx Instructions: take 1 capsule by mouth twice a day for 2 weeks then once daily UNTIL CLEAR sertraline 100 mg tablet 200 mg PO DAILY Qty: 60 0RF levothyroxine 50 mcg tablet 50 mcg PO DAILY Qty: 90 1RF eszopiclone 2 mg tablet 2 mg PO BEDTIME Qty: 90 3RF hydroxyzine pamoate 25 mg capsule 25 mg PO TID PRN (Reason: anxiety) Qty: 90 1RF Rx Instructions: may make drowsy, do not drive clindamycin phosphate 1 % solution 1 applic topical BID Qty: 60 1RF alprazolam 0.25 mg tablet 0.25 mg PO BEDTIME PRN (Reason: Sleeplessness) Qty: 30 2RF Rx Instructions: Take 1-2 tabs at bedtime daily as needed for profound insomnia Referrals: Aylin Crouch ARNP [Primary Care Provider] - Visit Report Forms: Patient Portal/API
--- NOTE | 2022-02-18 09:56 | DI.CT.S_ITS ---
PROCEDURE: CT ABDOMEN PELVIS W CON INDICATIONS: severe lower pain with vomiting TECHNIQUE: After the administration of intravenous contrast, axial sections acquired from the lung bases to the pubic symphysis. Coronal and sagittal reformats were performed. For radiation dose reduction, the following was used: automated exposure control, adjustment of mA and/or kV according to patient size. COMPARISON: [facility], CT, ABDOMEN/PELVIS WITH CONTRAST, 07/20/2012, 10:51. FINDINGS: Image quality: Good Lower chest: Scattered scarring/atelectasis Solid organs: 1.3 cm enhancing region at the liver dome, faintly visible in 2013, likely benign. Gallbladder is absent. Prominent biliary tree post cholecystectomy. No pathologic dilation of the pancreatic duct. No splenomegaly. No adrenal nodules. No left hydronephrosis. There is a 3-4 mm right distal ureter stone. Moderate upstream hydronephrosis with slightly delayed nephrogram. Vessels and lymph nodes: No abdominal aortic aneurysm or pathologic adenopathy by size criteria. Bowel and peritoneum: No bowel obstruction. No pathologic ascites. Body wall: Anterior abdominal wall hernia repair changes, with underlying postsurgical fluid containing material. Pelvis: Hysterectomy. Bladder is under distended limiting evaluation Bones: No acute or suspicious osseous abnormality. IMPRESSION: 3-4 mm right distal ureter stone with moderate upstream hydronephrosis and CT evidence of obstructive nephropathy. Other findings as above. Approved by: Jerod Spear M.D. on 02/18/2022 at 9:51
[2022-02-18 09:59] LABS: Add Manual Diff / Slide Review NO; Basophils Absolute Auto 100 /uL (0-100); Eosinophils Absolute Auto 100 /uL (0-450); Eosinophils Percent Auto 1.8 % (2-4); Hematocrit 41.4 % (36-46); Hemoglobin 13.9 g/dL (12.0-16.0); Lymphocytes Absolute Auto 1600 /uL (1100-4500); Lymphocytes Percent Auto 19.1 % (25-40); Mean Corpuscular HGB Conc 33.5 % (30-36); Mean Corpuscular Hemoglobin 30.7 PG (26-34); Mean Corpuscular Volume 91.5 fL (80-100); Monocytes Absolute Auto 300 /uL (0-900); Monocytes Percent Auto 3.2 % (3-14); Neutrophils Absolute Auto 6300 /uL (1500-7000); Neutrophils Percent Auto 74.9 % (50-75); Platelet Count 205 X10^3/uL (150-400); Red Blood Cell Count 4.53 X10^6/uL (4.0-5.2); Red Cell Distribution Width 13.3 % (11.6-14.8); White Blood Cell Count 8.4 X10^3/uL (4.5-11.0)
[2022-02-18 10:04] LABS: Lactate (Lactic Acid) 2.1 mmol/L (0.7-2.1)
[2022-02-18 10:05] LABS: Alanine Aminotransferase 20 IU/L (<35); Albumin 4.3 g/dL (3.5-5.0); Albumin Globulin Ratio 1.2 (1.0-2.8); Alkaline Phosphatase 92 U/L (38-126); Aspartate Aminotransferase 17 IU/L (14-36); BUN Creatinine Ratio 25.3 (6-22); Bilirubin Total 0.4 mg/dL (0.2-1.3); Blood Urea Nitrogen 20 mg/dL (7-17); Calcium 9.4 mg/dL (8.4-10.2); Carbon Dioxide 23 mmol/L (22-32); Chloride 104 mmol/L (98-107); Estimated Glomerular Filt Rate > 60 mL/min (>60); Globulin 3.7 g/dL (1.7-4.1); Glucose 139 mg/dL (70-100); HEMOLYSIS < 15 (0-50); Lipase 85 U/L (23-300); Potassium 3.6 mmol/L (3.4-5.1); Sodium 139 mmol/L (137-145)
[2022-02-18] MEDS: HYDROMORPHONE 1 MG INJ IV (10:19)
--- NOTE | 2022-02-18 11:08 | PC.NURSE ---
pt daughter reports that patient ordered food off of [employer] that were weird colored pickles. she thinks food poisoning is a possibility
[2022-02-18] MEDS: KETOROLAC 30 MG/ML VIAL 15 MG IV (11:28)
[2022-02-18 11:39] LABS: Thyroid Stimulating Hormone 9.31 uIU/mL (0.47-4.68)
[2022-02-18 11:55] LABS: Reflexed Lactate in 2 Hours Y
[2022-02-18 11:57] LABS: Appearance Urine UA CLEAR; Bilirubin Urine UA NEGATIVE (NEGATIVE); Color Urine UA YELLOW; Glucose Urine UA NEGATIVE (Negative); Ketones Urine UA NEGATIVE (NEGATIVE); Leukocyte Esterase Urine UA NEGATIVE (NEGATIVE); Nitrite Urine UA NEGATIVE (Negative); Occult Blood Urine UA 3+ (Negative); Protein Urine UA NEGATIVE (Negative); Urobilinogen Urine UA 0.2 E.U./dL (0.2)
[2022-02-18 12:12] LABS: Bacteria Urine Occasional (0-1); Culture Indicated Urine Cult Not Indicated; RBC Urine 10-30/HPF (0-5/HPF); Squamous Epithelial Cell Urine 0-1 /HPF (0-5/HPF); WBC Urine 0-1/HPF (0-5/HPF)
[2022-02-18 12:43] LABS: Influenza A - CEPHEID Flu A NEGATIVE (NEGATIVE); Influenza B - CEPHEID Flu B NEGATIVE (NEGATIVE); Respiratory Syncytial Virus Negative (Negative)
[2022-02-18 12:45] LABS: COVID-19 CEPHEID 4-PLEX PCR Negative (Negative)
== END 2022-02-18 12:17 | disposition home or self-care (01) ==
PROVIDERS: Emergency Provider Emergency Medicine; Family Provider Physician Assistant; PCP Nurse Practitioner
DX: N20.0 Calculus of kidney (principal); R11.0 Nausea; Z79.899 Other long term (current) drug therapy; Z20.822 Contact with and (suspected) exposure to COVID-19
CPT/HCPCS: 0241U; 36415; 74177; 80053; 81001; 81003; 83605; 83690; 84443; 85025; 96361; 96374; 96375; 96376; 99284; C9113; J1170; J1885; J2405; Q9967

== ENCOUNTER → 2023-05-09 16:11 | Outpatient (CLI) | payer OTHER, SELFPAY ==
[2023-05-09 17:37] LABS: Hematocrit 40.1 % (36-46); Hemoglobin 13.5 g/dL (12.0-16.0); Mean Corpuscular HGB Conc 33.6 % (30-36); Mean Corpuscular Hemoglobin 30.9 PG (26-34); Mean Corpuscular Volume 92.1 fL (80-100); Platelet Count 183 X10^3/uL (150-400); Red Blood Cell Count 4.35 X10^6/uL (4.0-5.2); White Blood Cell Count 7.3 X10^3/uL (4.5-11.0)
[2023-05-09 17:56] LABS: Alanine Aminotransferase 31 IU/L (<35); Albumin 4.1 g/dL (3.5-5.0); Albumin Globulin Ratio 1.2 (1.0-2.8); Alkaline Phosphatase 76 U/L (38-126); Aspartate Aminotransferase 24 IU/L (14-36); Bilirubin Total 0.6 mg/dL (0.2-1.3); Blood Urea Nitrogen 18 mg/dL (7-17); Calcium 9.4 mg/dL (8.4-10.2); Carbon Dioxide 29 mmol/L (22-32); Chloride 106 mmol/L (98-107); Cholesterol 151 mg/dL (140-199); Estimated Glomerular Filt Rate > 60 mL/min (>60); Globulin 3.5 g/dL (1.7-4.1); Glucose 86 mg/dL (70-100); HDL Cholesterol 39 mg/dL (40-60); HEMOLYSIS < 15 (0-50); LDL Cholesterol Calculated 76 mg/dL (<100); Potassium 4.4 mmol/L (3.4-5.1); Sodium 140 mmol/L (137-145); Total Protein 7.6 g/dL (6.3-8.2); Triglycerides 179 mg/dL (35-150)
[2023-05-09 18:16] LABS: Free T3, Triiodothyronine Free 3.61 pg/mL (2.77-5.27); Free T4, Direct Thyroxine 1.03 ng/dL (0.78-2.19)
[2023-05-09 18:30] LABS: Thyroid Stimulating Hormone 4.43 uIU/mL (0.47-4.68)
[2023-05-09 20:00] LABS: Creatinine Urine Random 256.2 mg/dL
[2023-05-09 20:33] LABS: Microalbumi Creatinin Ratio Ur 5.4 ug/mg CR (<30); Microalbumin Urine Random 1.4 mg/dL (0-1.6)
[2023-05-09 20:42] LABS: HIV 1 & 2 Ab/Ag 4th Gen Combo NEGATIVE (NEGATIVE); Hep C Virus Ab w/Reflex Quant NEGATIVE s/c (NEGATIVE)
== END ==
PROVIDERS: Family Provider Physician Assistant; PCP Nurse Practitioner; Referring Provider Nurse Practitioner; Visit Provider Nurse Practitioner
DX: Z00.00 Encounter for general adult medical examination without abnormal findings (principal); Z11.4 Encounter for screening for human immunodeficiency virus [HIV]; Z11.59 Encounter for screening for other viral diseases
CPT/HCPCS: 36415; 80053; 80061; 82043; 82570; 84439; 84443; 84481; 85027; 86803; 87389

== ENCOUNTER 2023-08-20 06:36 | Day surgery (SDC) | payer OTHER, SELFPAY ==
[2023-08-15 10:54] VITALS: BMI 30.2
--- NOTE | 2023-08-20 | PATH_ITS ---
[facility] Accession Number: [id number] No. of containers..01 Tissue . 01 Material submitted: . AXILLARY - LEFT AXILLARY SKIN . 01 Diagnosis: LEFT AXILLARY, EXCISION: Epidermal inclusion cyst, ruptured and inflamed, with microabscess formation and scarring. . NOTE: Diagnostic considerations could include, in the proper clinical setting, hidradenitis suppurativa. [facility] 08/26/2023 1742 Local . 01 Electronically signed: . Mira Ramos MD, Dermatopathologist NPI- [id number] . 01 Gross description: . Received in formalin with two patient identifiers and left axillary skin, is an unoriented triangular-shaped portion of skin measuring 7.7 x 5.8 cm by 1.7 thick. The skin surface is christopher and wrinkled with no lesions identified. The margin is inked blue, and sectioning reveals a yellow erythematous cut surface with no discrete lesions identified. [employer] sections are submitted in A1-A3. ([id number]) /MRV 08/21/2023 1655 Local . 01 Pathologist provided ICD-10: L72.0 . 01 CPT . 827546 Specimen Comment: A courtesy copy of this report has been sent to [phone] Performed at: [address] [facility] [address], [place], [place] [id number] MD Carlos Contreras MD Phone: [phone]
[2023-08-20 07:29] VITALS: BP 103/75; PULSE 77; RESP 18; TEMP 36.4; O2SAT 97; BMI 31.0
[2023-08-20] MEDS: LACTATED RINGERS 1,000 ML 42 ML IV (07:37)
[2023-08-20] MEDS: ACETAMINOPHEN 325 MG TABLET 975 MG PO (07:39)
--- NOTE | 2023-08-20 07:45 | P.HP_ITS ---
History of Present Illness History of Present Illness Date Patient Seen: 08/20/23 Time Patient Seen: 07:46 Chief complaint: Left axillary wide local excision Narrative: Agata is here for her wide local excision with flap or graft closure of her left axillary hidradenitis suppurativa. She has successfully quit smoking but did not noticed any improvement in her hidradenitis. She also started Humira but has also noticed no improvement. FOR[facility]LY [facility] Medical History Post menopausal syndrome Insomnia Anxiety Hidradenitis suppurativa (1999) Depression (2004) Hypothyroidism Current smoker Social History household members: spouse Smoking Status: Former smoker Tobacco: How many years used: 30 quit status: considering quitting second hand exposure: Yes alcohol intake: never substance use type: does not use Meds Home Medications and Allergies Home Medications Medication Instructions Recorded Confirmed Type secukinumab 150 mg/mL subcutaneous 150 mg SUBCUT QWEEK #5 mL 05/13/23 08/20/23 Rx syringe (Cosentyx 300 mg/2 Syringes () levothyroxine 88 mcg tablet 88 mcg PO DAILY #90 tabs 07/15/23 08/20/23 Rx Allergies Allergy/AdvReac Type Severity Reaction Status Date / Time ciprofloxacin Allergy Severe DOMINIK Verified 08/20/23 07:46 J[facility]ONS [employer]DROME penicillin G Allergy Severe Anaphylaxic Verified 08/20/23 07:46 Shock Exam Vital Signs (past 8 hours): - 08/20/23 07:29 Temperature 97.5 F L Pulse Rate 77 Respiratory Rate 18 Blood Pressure 103/75 Pulse Oximetry 97 Oxygen Delivery Method Room Air Oxygen Delivery Method Room Air Narrative Exam Narrative: Unchanged stage III hidradenitis of the left axilla Assessment & Plan Assessment and plan (1) Hidradenitis suppurativa: Status: Acute Plan We will proceed with wide local excision of left axillary hidradenitis suppurativa. I discussed the options for closure with Agata which include primary closure, flap closure or split-thickness skin graft. I informed her that the most likely technique will be a split-thickness skin graft and we discussed the aftercare for the skin graft and the donor site which will likely be the left thigh. She would like to proceed.
[2023-08-20] MEDS: CLINDAMYCIN 900 MG/50 ML PIGGYBACK 50 MG IV (07:59)
--- NOTE | 2023-08-20 08:29 | SUR.OPER ---
Supine on padded OR bed, head on pillow, RIGHT arm secured on padded arm board at <90 degrees abduction, LEFT ARM SECURED TO FIELD OVER PATIENT'S HEAD, legs uncrossed, safety belt at thigh, tape over blanket over lower legs.
[2023-08-20] MEDS: BUPIVACAINE 0.5% (PF) 30 ML, EPINEPHrine 0.15 MG INJ (09:03)
--- NOTE | 2023-08-20 09:38 | PM.OP.1 ---
Operative Date/Time/Diagnoses Date of procedure: 08/20/23 Time of procedure: 09:39 Pre-op diagnosis: Hidradenitis suppurativa Post-op diagnosis: same Procedure & Clinicians Procedure: Wide local excision of the left axillary hidradenitis suppurativa Split-thickness skin graft from the left anterior thigh Same procedure as scheduled: Yes Surgeon: Morro Lopez [employer] Grade Teacher: Kuldeep Morris Anesthesia Type: General Operative Notes Procedure in detail: The patient was marked in the preoperative holding area. Preoperative clindamycin was administered. Patient was brought to the operating room and placed on the table in the supine position and general anesthesia was induced. The left axilla and left anterior thigh were prepped and draped in the usual fashion. The left arm was abducted and suspended to expose the axilla. A time-out was performed. We started out by excising all of the disease skin of the left axilla. This created a wound measuring approximately 12 cm x 9 cm. We inspected the subcutaneous adipose tissue and there was no evidence of any remaining granulation tissue or abscess cavities. We then performed a split-thickness skin graft. We injected 0.5% Marcaine with epinephrine into the anterior left thigh at the donor site. We took 2 passes with the dermatome set at 14 one thousands of an inch. We meshed the skin grafts 3-1. We tacked the skin grafts placed in the left axilla using 4-0 Monocryl. We then placed Xeroform gauze followed by a wound VAC to fix the graft to the underlying tissue. We covered the donor site with a single layer of Xeroform gauze followed by an additional layer of Xeroform gauze and fluffs. Tegaderms were used to cover donor site. Her left arm was placed in a sling. EBL: 50 mL Kuldeep MESA provided assistance with exposure, retraction and closure of incisions. Post-operative Condition: stable Disposition: PACU
[2023-08-20 09:42] VITALS: BP 114/50; PULSE 86; RESP 16; TEMP 36.4; O2SAT 95
[2023-08-20 09:47] VITALS: BP 127/63; PULSE 91; RESP 14; TEMP 36.4; O2SAT 98
[2023-08-20 09:52] VITALS: BP 108/62; PULSE 83; RESP 15; TEMP 36.4; O2SAT 99
[2023-08-20] MEDS: hydrOXYzine 50 MG/ML INJ 25 MG IM (09:53)
[2023-08-20] MEDS: METOCLOPRAMIDE 10 MG/2 ML INJ IV (09:53)
[2023-08-20] MEDS: ONDANSETRON 4 MG/2 ML INJ IV (09:53)
[2023-08-20] MEDS: OXYCODONE IR 5 MG TABLET PO (10:03)
[2023-08-20 10:10] VITALS: BP 123/73; PULSE 93; RESP 16; TEMP 36.4; O2SAT 100
== END 2023-08-20 10:37 | disposition home or self-care (01) ==
PROVIDERS: Family Provider Physician Assistant; PCP Nurse Practitioner; Referring Provider Surgery; Visit Provider Surgery
PROC: (CPT 11450; principal; 2023-08-20 07:45)
DX: L73.2 Hidradenitis suppurativa (principal)
CPT/HCPCS: 11450; 15100; 15101; J0171; J1100; J1885; J2405; J2704; J2765; J3010; J3410

== ENCOUNTER → 2023-12-27 11:57 | Outpatient (CLI) | payer OTHER, SELFPAY | PROVIDERS: Family Provider Physician Assistant; PCP Nurse Practitioner; Referring Provider Physician Assistant Medical; Visit Provider Physician Assistant Medical | DX: R30.0 Dysuria (principal) | CPT/HCPCS: 87086 ==

== ENCOUNTER → 2024-02-14 12:17 | Outpatient (CLI) | payer OTHER, SELFPAY ==
--- NOTE | 2024-02-14 12:18 | DI.RAD.S_ITS ---
PROCEDURE: XR CHEST 2V INDICATIONS: cough TECHNIQUE: 2 views of the chest were acquired. COMPARISON: None. FINDINGS: Surgical changes and devices: ACDF. Lungs and pleura: Lungs are clear. No pleural effusions or pneumothorax. Mediastinum: Mediastinal contours are normal. Heart size is normal. Bones and chest wall: No suspicious bony abnormalities. Soft tissues appear unremarkable. IMPRESSION: No acute cardiopulmonary abnormality is seen. Dictated by: Carlos Juarez M.D. on 02/14/2024 at 15:18 Approved by: Carlos Juarez M.D. on 02/14/2024 at 15:19
== END ==
LOC: RAD 12:18
PROVIDERS: Family Provider Physician Assistant; PCP Internal Medicine; Referring Provider Internal Medicine; Visit Provider Internal Medicine
DX: R05.9 Cough, unspecified (principal)
CPT/HCPCS: 71046

== ENCOUNTER 2024-09-08 05:36 | Inpatient (IN) | payer OTHER, SELFPAY ==
[2024-09-08] VITALS (23 sets, daily range): BP systolic 94–123; BP diastolic 48–74; PULSE 65–144; RESP 12–32; TEMP 35.9–37.6; O2SAT 93–99; BMI 31.3
--- NOTE | 2024-09-08 05:43 | EKG_ITS ---
[address] [id number] [address] [place] [address] Test Date: 2024-09-08 Pat Name: Agata Garcia Department: [facility] Room: Gender: Female [employer]: RAEGAN : 1970 Requested By: Order Number: [id number] Reading MD: Joseph Marin MD Measurements Intervals [place] Rate: 124 P: 49 ID: [id number] QRS: 14 QRSD: 76 T: 80 QT: 286 QTc: 410 Interpretive Statements Sinus tachycardia Nonspecific ST and T wave abnormality Electronically Signed On 09-08-2024 7:48:48 PDT by Joseph Marin MD
--- NOTE | 2024-09-08 05:50 | DI.RAD.S_ITS ---
PROCEDURE: XR CHEST 1V INDICATIONS: allergic rxn, hx susie turner, feels similar TECHNIQUE: One view of the chest was acquired. COMPARISON: [facility], CR, XR CHEST 2V, 02/14/2024, 12:30. FINDINGS: Surgical changes and devices: None. Lungs and pleura: Lungs are clear. No pleural effusions or pneumothorax. Mediastinum: Mediastinal contours appear normal. Heart size is normal. Bones and chest wall: No suspicious bony lesions. Overlying soft tissues appear unremarkable. IMPRESSION: No acute cardiopulmonary pathology. No discrepancies. Dictated by: Alejandro Contreras M.D. on 09/08/2024 at 8:16 Approved by: Alejandro Contreras M.D. on 09/08/2024 at 8:17
[2024-09-08 05:52] LABS: Appearance Urine UA CLOUDY; Bilirubin Urine UA NEGATIVE (NEGATIVE); Color Urine UA YELLOW; Glucose Urine UA NEGATIVE (Negative); Ketones Urine UA NEGATIVE (NEGATIVE); Leukocyte Esterase Urine UA 2+ (NEGATIVE); Nitrite Urine UA NEGATIVE (Negative); Occult Blood Urine UA TRACE-INTACT (Negative); Protein Urine UA TRACE (Negative); Specific Gravity Urine UA >=1.030 (1.000-1.035); Urobilinogen Urine UA 0.2 E.U./dL (0.2)
[2024-09-08 05:53] LABS: pH Urine UA 5.5 (4.5-8.0)
--- NOTE | 2024-09-08 05:53 | ED_ITS ---
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 Patient states last night she took a dose of Levaquin she was left over from her has been when he had pneumonia because she thought she was developing a UTI. She states she was started to notice she did not feel very good last night, started to notice some irritation and redness of her extremities and laid down to go to sleep. When she woke up this morning she states feels very similar to when she had Vargas Samson in the initial stages. She notes redness, irritation of her skin sort of a sensation of a film on the back of her throat, no swelling of the tongue but notes her voice seems a little bit different. No chest pain, no shortness of breath. No nausea or vomiting but notes she was some redness and very sensitive skin on her torso and extremities particularly the palms of her hand and her feet which she states is very similar. She took 1 dose last night has not had any additional doses. Patient states her home medications include levothyroxine she denies other daily medications. Has had prior hernia repair. Also notes history of allergy to penicillin G was anaphylactic shock. No tobacco, occasional alcohol, uses marijuana occasionally but no other IV or recreational drugs. Dr. Romero is her primary care physician. Patient states she was hospitalized for about a week in [place] about 30 years ago, had mucous membrane involvement did not require intubation at that time. Related Data Home Medications ?Medication ?Instructions ?Recorded ?Confirmed Ashwaganda PO DAILY 09/15/24 09/22/24 vitamin D3 1,250 mcg (50,000 cap PO DAILY 09/15/24 unit)-vitamin K2 200 mcg capsule Previous Rx's ?Medication ?Instructions ?Recorded levothyroxine 88 mcg tablet 88 mcg PO DAILY #90 tabs 0 07/21/24 prednisone 10 mg tablets in a dose See Rx Instructions PO .COMPLEX 09/15/24 pack #48 ea estradiol 0.01% (0.1 mg/gram) 1 appful vaginal DAILY # 42.5 grams 09/22/24 vaginal cream sertraline 100 mg tablet 150 mg (1.5 x 100 mg) PO ISAÍAS LY #45 10/08/24 tabs Allergies Allergy/AdvReac Type Severity Reaction Status Date / Time ciprofloxacin Allergy Severe DOMINIK Verified 09/22/24 14:36 JOHNSONS SYNDROME levofloxacin (From Levaquin) Allergy Severe Raheel Verified 09/22/24 14:36 Samson's Syndrome penicillin G Allergy Severe Anaphylaxic Verified 09/22/24 14:36 Shock Review of Systems <Monika Kong DO - Last Filed: 10/26/24 07:47> Review of Systems ROS Unobtainable: All systems reviewed & are unremarkable except as noted in HPI and below Patient History <Monika Kong DO - Last Filed: 10/26/24 07:47> Medical History (Updated 09/22/24 @ 16:35 by Kell Romero MD) Vargas-Samson syndrome Recurrent UTI 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 Penicillin allergy Generalized anxiety disorder Cognitive changes Post menopausal syndrome Insomnia Anxiety Hidradenitis suppurativa (1999) Depression (2004) Hypothyroidism Current smoker Surgical History History of cholecystectomy History of hysterectomy Family History Mother Kidney disease Father Rheumatic fever Social History household members: spouse Tobacco: How many years used: 30 quit status: considering quitting second hand exposure: Yes alcohol intake: never substance use type: does not use tobacco type: e-cigarettes and vaping alcohol intake frequency: 0-2 drinks per day Exam <Monika Kong DO - Last Filed: 10/26/24 07:47> Narrative Exam Narrative: GEN: well nourished, well appearing female, alert and oriented x 3, patient appears to be in moderate distress. HEENT: Atraumatic, pupils are equal round reactive to light, extraocular movements are intact, eyes are slightly injected, nares are clear, TMs are clear with no fluid, there is no conjunctival pallor. Throat is clear without any exudates, erythema, tonsillar enlargement or uvular deviation, patient has some erythema and cracking of her lips, no obvious oral lesions of the in her palate or tongue, no obvious swelling of her oropharynx. Patient's speech sounds fairly clear although she notes a mild change to her speech. No difficulty with secretions. HEART: Patient is tachycardic but regular rate and rhythm without murmur, clicks, rubs. Pulses are equal in upper and lower extremities LUNGS:Lungs clear to auscultation, no wheezes, rales, crackles, chest moves symmetrically, no tachypnea. ABD:bowel sounds normal, soft, non-tender, no guarding, rebound, rigidity, no masses noted, no hepatosplenomegaly :No CVA tenderness. MSCL: Non-tender, no muscle atrophy, muscles strength 5/5 upper and lower extremities, full range of motion, normal gait NEURO:CN 2-12 intact, sensation normal. SKIN: Patient has a erythema of her face, upper torso and posterior upper back, she has clear redness of the palms of her hands and a little bit on the dorsum as well, has erythema of bilateral lower extremities on the plantar as well as dorsal side in his quite sensitive to touch. 2+ pulses in all 4 extremities. Initial Vital Signs Initial Vital Signs: Vital Signs Temperature 99.7 F H 09/08/24 05:46 Pulse Rate 144 H 09/08/24 05:46 Respiratory Rate 24 09/08/24 05:46 Blood Pressure 121/57 L 09/08/24 05:46 Pulse Oximetry 95 09/08/24 05:46 Oxygen Delivery Method Room Air 09/08/24 05:46 <Ana Clayton MD - Last Filed: 09/08/24 13:47> Initial Vital Signs Initial Vital Signs: Vital Signs Temperature 99.7 F H 09/08/24 05:46 Pulse Rate 144 H 09/08/24 05:46 Respiratory Rate 24 09/08/24 05:46 Blood Pressure 121/57 L 09/08/24 05:46 Pulse Oximetry 95 09/08/24 05:46 Oxygen Delivery Method Room Air 09/08/24 05:46 Course <Monika Kong DO - Last Filed: 10/26/24 07:47> Orders Ordered: Discontinued Medications Acetaminophen (Acetaminophen 325 Mg Tablet) 650 mg PO Q6H PRN PRN Reason: Fever/Mild Pain (1-3) Last Admin: 09/11/24 16:39 Dose: 650 mg Documented By: Admin: 09/11/24 08:38 Dose: 650 mg Documented By: Admin: 09/10/24 15:18 Dose: 650 mg Documented By: Admin: 09/10/24 09:48 Dose: 650 mg Documented By: Admin: 09/09/24 16:11 Dose: 650 mg Documented By: Admin: 09/09/24 09:48 Dose: 650 mg Documented By: BT Albuterol (Albuterol 2.5 Mg/3 Ml Neb (Adult)) 2.5 mg INH [id number] PRN PRN Reason: Wheezing Last Admin: 09/12/24 08:44 Dose: 2.5 mg Documented By: Admin: 09/11/24 22:03 Dose: 2.5 mg Documented By: Admin: 09/11/24 16:07 Dose: 2.5 mg Documented By: AVINASH Albuterol (Albuterol 2.5 Mg/3 Ml Neb (Adult)) 2.5 mg INH Q2H PRN PRN Reason: Shortness Of Breath Or Wheezing Last Admin: 09/14/24 18:57 Dose: 2.5 mg Documented By: Admin: 09/14/24 15:56 Dose: 2.5 mg Documented By: Admin: 09/14/24 12:44 Dose: 2.5 mg Documented By: Admin: 09/14/24 08:48 Dose: 2.5 mg Documented By: Admin: 09/13/24 19:31 Dose: 2.5 mg Documented By: Admin: 09/13/24 15:29 Dose: 2.5 mg Documented By: Admin: 09/13/24 12:37 Dose: 2.5 mg Documented By: Admin: 09/13/24 08:33 Dose: 2.5 mg Documented By: Admin: 09/13/24 04:51 Dose: 2.5 mg Documented By: Admin: 09/12/24 19:20 Dose: 2.5 mg Documented By: Admin: 09/12/24 12:43 Dose: 2.5 mg Documented By: AVINASH Alprazolam (Alprazolam 0.25 Mg Tablet) 0.5 mg PO DAILY PRN PRN Reason: anxiety Last Admin: 09/14/24 21:58 Dose: 0.5 mg Documented By: Admin: 09/13/24 05:15 Dose: 0.5 mg Documented By: Admin: 09/12/24 20:07 Dose: 0.5 mg Documented By: Admin: 09/12/24 10:37 Dose: 0.5 mg Documented By: Admin: 09/11/24 02:03 Dose: 0.5 mg Documented By: Admin: 09/10/24 15:19 Dose: 0.5 mg Documented By: Admin: 09/09/24 20:52 Dose: 0.5 mg Documented By: Admin: 09/09/24 03:21 Dose: 0.5 mg Documented By: KATIE Diphenhydramine HCl (Diphenhydramine 50 Mg/Ml Vial) 50 mg IV NOW ONE Stop: 09/08/24 05:51 Last Admin: 09/08/24 06:02 Dose: 50 mg Documented By: RANULFO Diphenhydramine HCl (Diphenhydramine 25 Mg Tablet) 25 mg PO Q6HR PRN PRN Reason: Itching Last Admin: 09/13/24 21:32 Dose: 25 mg Documented By: Admin: 09/10/24 20:33 Dose: 25 mg Documented By: Admin: 09/09/24 16:09 Dose: 25 mg Documented By: Admin: 09/09/24 09:48 Dose: 25 mg Documented By: Admin: 09/09/24 03:20 Dose: 25 mg Documented By: KATIE Docusate Sodium (Docusate 100 Mg Capsule) 100 mg PO BID PRN PRN Reason: Constipation Last Admin: 09/12/24 22:18 Dose: 100 mg Documented By: POLLY Epinephrine HCl (Epinephrine 1 Mg/Ml) 0.3 mg IM NOW ONE Stop: 09/08/24 05:51 Last Admin: 09/08/24 06:02 Dose: 0.3 mg Documented By: RANULFO Famotidine (Famotidine 20 Mg/2 Ml Vial) 20 mg IV NOW WILLI Last Admin: 09/08/24 06:02 Dose: 20 mg Documented By: RANULFO Gabapentin (Gabapentin 100 Mg Capsule) 100 mg PO NOW ONE Stop: 09/08/24 22:15 Last Admin: 09/08/24 23:40 Dose: 100 mg Documented By: KATIE Gabapentin (Gabapentin 300 Mg Capsule) 300 mg PO BID [facility] Last Admin: 09/10/24 20:33 Dose: 300 mg Documented By: Admin: 09/10/24 09:47 Dose: 300 mg Documented By: Admin: 09/10/24 00:22 Dose: 300 mg Documented By: KATIE Gabapentin (Gabapentin 400 Mg Capsule) 400 mg PO TID [facility] Last Admin: 09/15/24 08:55 Dose: 400 mg Documented By: Admin: 09/14/24 20:00 Dose: 400 mg Documented By: Admin: 09/14/24 14:34 Dose: 400 mg Documented By: Admin: 09/14/24 08:30 Dose: 400 mg Documented By: Admin: 09/13/24 20:40 Dose: 400 mg Documented By: Admin: 09/13/24 15:46 Dose: 400 mg Documented By: Admin: 09/13/24 08:15 Dose: 400 mg Documented By: Admin: 09/12/24 20:07 Dose: 400 mg Documented By: Admin: 09/12/24 14:58 Dose: 400 mg Documented By: Admin: 09/12/24 08:17 Dose: 400 mg Documented By: Admin: 09/11/24 20:32 Dose: 400 mg Documented By: Admin: 09/11/24 14:11 Dose: 400 mg Documented By: Admin: 09/11/24 08:38 Dose: 400 mg Documented By: ROB Guaifenesin (Guaifenesin Er 600 Mg Tab) 600 mg PO Q12HR PRN PRN Reason: Cough Last Admin: 09/11/24 08:37 Dose: 600 mg Documented By: Admin: 09/10/24 09:53 Dose: 600 mg Documented By: Admin: 09/09/24 16:41 Dose: 600 mg Documented By: ROB Guaifenesin (Guaifenesin Solution 100 Mg/5 Ml Udc) 200 mg PO Q4HR PRN PRN Reason: Cough Hydromorphone HCl (Hydromorphone Hcl 0.5 Mg/0.5 Ml Syringe) 0.5 mg IV Q15MIN PRN PRN Reason: Pain, Last Admin: 09/08/24 10:07 Dose: 0.5 mg Documented By: Admin: 09/08/24 08:59 Dose: 0.5 mg Documented By: Admin: 09/08/24 08:13 Dose: 0.5 mg Documented By: JA Hydromorphone HCl (Hydromorphone Hcl 0.5 Mg/0.5 Ml Syringe) 0.5 mg IV Q2H PRN PRN Reason: Pain, Moderate (4-6) Last Admin: 09/14/24 14:34 Dose: 0.5 mg Documented By: Admin: 09/14/24 12:10 Dose: 0.5 mg Documented By: Admin: 09/14/24 10:13 Dose: 0.5 mg Documented By: Admin: 09/13/24 21:43 Dose: 0.5 mg Documented By: Admin: 09/13/24 21:32 Dose: 0.5 mg Documented By: Admin: 09/13/24 17:30 Dose: 0.5 mg Documented By: Admin: 09/13/24 13:00 Dose: 0.5 mg Documented By: Admin: 09/13/24 08:15 Dose: 0.5 mg Documented By: Admin: 09/13/24 05:10 Dose: 0.5 mg Documented By: Admin: 09/13/24 02:00 Dose: 0.5 mg Documented By: Admin: 09/12/24 12:52 Dose: 0.5 mg Documented By: Admin: 09/12/24 10:25 Dose: 0.5 mg Documented By: Admin: 09/12/24 08:18 Dose: 0.5 mg Documented By: Admin: 09/12/24 05:46 Dose: 0.5 mg Documented By: Admin: 09/11/24 23:32 Dose: 0.5 mg Documented By: Admin: 09/11/24 20:32 Dose: 0.5 mg Documented By: Admin: 09/11/24 18:32 Dose: 0.5 mg Documented By: Admin: 09/11/24 10:05 Dose: 0.5 mg Documented By: Admin: 09/11/24 03:11 Dose: 0.5 mg Documented By: Admin: 09/10/24 22:14 Dose: 0.5 mg Documented By: Admin: 09/09/24 20:53 Dose: 0.5 mg Documented By: Admin: 09/08/24 16:23 Dose: 0.5 mg Documented By: JOSE Hydromorphone HCl (Hydromorphone 1 Mg Inj) 1 mg IV Q4H PRN PRN Reason: Pain, Severe (7-10) Last Admin: 09/14/24 19:48 Dose: 1 mg Documented By: Admin: 09/14/24 15:33 Dose: 1 mg Documented By: Admin: 09/14/24 05:38 Dose: 1 mg Documented By: Admin: 09/12/24 20:07 Dose: 1 mg Documented By: Admin: 09/12/24 15:04 Dose: 1 mg Documented By: Admin: 09/11/24 13:30 Dose: 1 mg Documented By: Admin: 09/09/24 14:35 Dose: 1 mg Documented By: Admin: 09/09/24 02:22 Dose: 1 mg Documented By: Admin: 09/08/24 17:45 Dose: 1 mg Documented By: JOSE Lactated Ringer's (Lactated Ringers) 1,000 mls @ 1,000 mls/hr IV BOLUS ONE Stop: 09/08/24 06:49 Last Infusion: 09/08/24 07:13 Dose: Infused Documented By: Admin: 09/08/24 06:03 Dose: 1,000 mls/hr Documented By: RANULFO Sodium Chloride (Normal Saline 0.9%) 1,000 mls @ 150 mls/hr IV CONT WILLI Last Infusion: 09/08/24 15:16 Dose: Infused Documented By: Admin: 09/08/24 08:13 Dose: 150 mls/hr Documented By: JA Sodium Chloride (Normal Saline 0.9%) 1,000 mls @ 100 mls/hr IV CONT WILLI Last Infusion: 09/10/24 07:57 Dose: Infused Documented By: Admin: 09/09/24 21:47 Dose: 100 mls/hr Documented By: Infusion: 09/09/24 21:47 Dose: Infused Documented By: Admin: 09/09/24 12:02 Dose: 100 mls/hr Documented By: Infusion: 09/09/24 12:02 Dose: Infused Documented By: Admin: 09/09/24 02:26 Dose: 100 mls/hr Documented By: Infusion: 09/09/24 01:22 Dose: Infused Documented By: Admin: 09/08/24 15:22 Dose: 100 mls/hr Documented By: DEWAYNE Levothyroxine Sodium (Levothyroxine 88 Mcg Tablet) 88 mcg PO DAILY@0600 [facility] Last Admin: 09/15/24 05:57 Dose: 88 mcg Documented By: Admin: 09/14/24 05:36 Dose: 88 mcg Documented By: Admin: 09/13/24 05:06 Dose: 88 mcg Documented By: Admin: 09/12/24 05:42 Dose: 88 mcg Documented By: Admin: 09/11/24 06:11 Dose: 88 mcg Documented By: Admin: 09/10/24 06:17 Dose: 88 mcg Documented By: Admin: 09/09/24 06:47 Dose: 88 mcg Documented By: KATIE Magnesium Hydroxide (Magnesium Hydroxide 30 Ml Udc) 30 ml PO NOW ONE Stop: 09/10/24 18:15 Last Admin: 09/10/24 18:34 Dose: 30 ml Documented By: ROB Magnesium Hydroxide (Magnesium Hydroxide 30 Ml Udc) 30 ml PO NOW ONE Stop: 09/11/24 15:13 Last Admin: 09/11/24 15:23 Dose: 30 ml Documented By: ROB Magnesium Hydroxide (Magnesium Hydroxide 30 Ml Udc) 30 ml PO DAILY PRN PRN Reason: Constipation Last Admin: 09/13/24 08:14 Dose: 30 ml Documented By: EMILI Methylprednisolone (Methylprednisolone 125 Mg/2 Ml Vial) 125 mg IV NOW ONE Stop: 09/08/24 05:51 Last Admin: 09/08/24 06:03 Dose: 125 mg Documented By: RANULFO Methylprednisolone (Methylprednisolone 125 Mg/2 Ml Vial) 125 mg IV Q8H [facility] Last Admin: 09/14/24 08:31 Dose: 125 mg Documented By: Admin: 09/14/24 01:09 Dose: 125 mg Documented By: Admin: 09/13/24 17:30 Dose: 125 mg Documented By: Admin: 09/13/24 09:43 Dose: 125 mg Documented By: Admin: 09/13/24 01:58 Dose: 125 mg Documented By: Admin: 09/12/24 17:25 Dose: 125 mg Documented By: Admin: 09/12/24 10:25 Dose: 125 mg Documented By: EMILI Naloxone HCl (Naloxone 0.4 Mg/Ml Vial) 0.2 mg IV Q2MIN PRN PRN Reason: Opiate Reversal Nitrofurantoin Macrocrystals (Nitrofurantoin Er 100 Mg Capsule) 100 mg PO BID WILLI Last Admin: 09/15/24 08:55 Dose: 100 mg Documented By: Admin: 09/14/24 20:00 Dose: 100 mg Documented By: Admin: 09/14/24 08:30 Dose: 100 mg Documented By: Admin: 09/13/24 20:40 Dose: 100 mg Documented By: Admin: 09/13/24 08:15 Dose: 100 mg Documented By: Admin: 09/12/24 20:07 Dose: 100 mg Documented By: Admin: 09/12/24 08:17 Dose: 100 mg Documented By: Admin: 09/11/24 20:32 Dose: 100 mg Documented By: Admin: 09/11/24 08:38 Dose: 100 mg Documented By: Admin: 09/10/24 20:33 Dose: 100 mg Documented By: Admin: 09/10/24 09:47 Dose: 100 mg Documented By: Admin: 09/09/24 20:53 Dose: 100 mg Documented By: Admin: 09/09/24 09:48 Dose: 100 mg Documented By: Admin: 09/08/24 20:09 Dose: 100 mg Documented By: TRACEE Ondansetron HCl (Ondansetron 4 Mg/2 Ml Inj) 4 mg IV NOW PRN PRN Reason: Nausea And Vomiting Last Admin: 09/08/24 06:02 Dose: 4 mg Documented By: RANULFO Ondansetron HCl (Ondansetron 4 Mg Odt) 4 mg PO NOW PRN PRN Reason: Nausea And Vomiting Ondansetron HCl (Ondansetron 4 Mg/2 Ml Inj) 4 mg IV NOW ONE Stop: 09/08/24 11:01 Last Admin: 09/08/24 11:06 Dose: 4 mg Documented By: JA Ondansetron HCl (Ondansetron 4 Mg/2 Ml Inj) 4 mg IV Q8HR PRN PRN Reason: Nausea And Vomiting Last Admin: 09/10/24 18:03 Dose: 4 mg Documented By: Admin: 09/09/24 20:53 Dose: 4 mg Documented By: Admin: 09/08/24 16:25 Dose: 4 mg Documented By: JOSE Ondansetron HCl (Ondansetron 4 Mg/2 Ml Inj) 4 mg IV Q4HR PRN PRN Reason: Nausea And Vomiting Last Admin: 09/14/24 14:39 Dose: 4 mg Documented By: Admin: 09/14/24 05:36 Dose: 4 mg Documented By: Admin: 09/13/24 21:32 Dose: 4 mg Documented By: Admin: 09/13/24 17:36 Dose: 4 mg Documented By: Admin: 09/13/24 04:25 Dose: 4 mg Documented By: Admin: 09/12/24 20:07 Dose: 4 mg Documented By: Admin: 09/12/24 10:25 Dose: 4 mg Documented By: Admin: 09/12/24 05:46 Dose: 4 mg Documented By: Admin: 09/11/24 20:32 Dose: 4 mg Documented By: Admin: 09/11/24 08:38 Dose: 4 mg Documented By: Admin: 09/11/24 03:11 Dose: 4 mg Documented By: Admin: 09/10/24 22:14 Dose: 4 mg Documented By: AT Oxycodone HCl (Oxycodone Ir 5 Mg Tablet) 5 mg PO Q4HR PRN PRN Reason: Pain, Moderate (4-6) Last Admin: 09/15/24 01:48 Dose: 5 mg Documented By: Admin: 09/14/24 12:10 Dose: 5 mg Documented By: Admin: 09/13/24 04:25 Dose: 5 mg Documented By: Admin: 09/11/24 16:39 Dose: 5 mg Documented By: Admin: 09/11/24 08:37 Dose: 5 mg Documented By: Admin: 09/10/24 15:19 Dose: 5 mg Documented By: Admin: 09/10/24 09:48 Dose: 5 mg Documented By: Admin: 09/10/24 06:17 Dose: 5 mg Documented By: Admin: 09/09/24 23:37 Dose: 5 mg Documented By: Admin: 09/09/24 16:11 Dose: 5 mg Documented By: Admin: 09/09/24 09:48 Dose: 5 mg Documented By: BT Oxycodone HCl (Oxycodone Ir 10 Mg Tablet) 10 mg PO Q3HR PRN PRN Reason: Pain, Severe (7-10) Last Admin: 09/15/24 08:56 Dose: 10 mg Documented By: Admin: 09/14/24 22:01 Dose: 10 mg Documented By: KATIE Oxycodone/Acetaminophen (Oxycodone/Acetaminophen 5/325 Tablet) 1 tab PO NOW ONE Stop: 09/08/24 11:01 Last Admin: 09/08/24 11:06 Dose: 1 tab Documented By: JA Pantoprazole Sodium (Pantoprazole 40 Mg Vial) 40 mg IV BID [facility] Last Admin: 09/15/24 08:55 Dose: 40 mg Documented By: Admin: 09/14/24 20:00 Dose: 40 mg Documented By: Admin: 09/14/24 08:31 Dose: 40 mg Documented By: Admin: 09/13/24 20:40 Dose: 40 mg Documented By: Admin: 09/13/24 08:15 Dose: 40 mg Documented By: Admin: 09/12/24 20:07 Dose: 40 mg Documented By: Admin: 09/12/24 10:25 Dose: 40 mg Documented By: EMILI Phenazopyridine HCl (Phenazopyridine 100 Mg Tablet) 100 mg PO TID [facility] Last Admin: 09/15/24 08:55 Dose: 100 mg Documented By: Admin: 09/14/24 20:00 Dose: 100 mg Documented By: Admin: 09/14/24 14:34 Dose: 100 mg Documented By: RIGO Polyethylene Glycol (Polyethylene Glycol 3350 17 Gm Powd.Pack) 17 gm PO DAILY [facility] Last Admin: 09/15/24 08:57 Dose: Not Given Documented By: Admin: 09/14/24 08:31 Dose: 17 gm Documented By: Admin: 09/13/24 08:14 Dose: 17 gm Documented By: Admin: 09/12/24 08:17 Dose: 17 gm Documented By: Admin: 09/11/24 08:38 Dose: 17 gm Documented By: Admin: 09/10/24 18:34 Dose: 17 gm Documented By: BT Prednisone (Prednisone 20 Mg Tablet) 40 mg PO DAILY [facility] Last Admin: 09/10/24 09:47 Dose: 40 mg Documented By: Admin: 09/09/24 11:29 Dose: 40 mg Documented By: BT Prednisone (Prednisone 20 Mg Tablet) 60 mg PO DAILY [facility] Last Admin: 09/12/24 08:17 Dose: 60 mg Documented By: Admin: 09/11/24 08:38 Dose: 60 mg Documented By: BT Prednisone (Prednisone 20 Mg Tablet) 30 mg PO DAILY [facility] Sennosides (Sennosides 8.6 Mg Tablet) 8.6 mg PO BID [facility] Admin: 09/15/24 08:56 Dose: 8.6 mg Documented By: LDTammy Admin: 09/14/24 20:00 Dose: Not Given Documented By: Admin: 09/14/24 08:31 Dose: 8.6 mg Documented By: Admin: 09/13/24 20:40 Dose: 8.6 mg Documented By: Admin: 09/13/24 08:15 Dose: 8.6 mg Documented By: Admin: 09/12/24 22:18 Dose: 8.6 mg Documented By: POLLY Sertraline HCl (Sertraline 50 Mg Tablet) 150 mg PO DAILY [facility] Last Admin: 09/15/24 08:56 Dose: 150 mg Documented By: Admin: 09/14/24 08:31 Dose: 150 mg Documented By: Admin: 09/13/24 08:15 Dose: 150 mg Documented By: JYasir Admin: 09/12/24 08:17 Dose: 150 mg Documented By: JYasir Admin: 09/11/24 08:37 Dose: 150 mg Documented By: Admin: 09/10/24 09:47 Dose: 150 mg Documented By: Admin: 09/09/24 09:48 Dose: 150 mg Documented By: BT Sodium Chloride (Sodium Chloride 0.9% Flush) 10 ml IV BID [facility] Last Admin: 09/15/24 08:56 Dose: 10 ml Documented By: Admin: 09/14/24 20:02 Dose: 10 ml Documented By: Admin: 09/14/24 19:49 Dose: 10 ml Documented By: Admin: 09/14/24 08:31 Dose: 10 ml Documented By: Admin: 09/13/24 20:41 Dose: 10 ml Documented By: LORI Trazodone HCl (Trazodone 50 Mg Tablet) 50 mg PO BEDTIME [facility] Last Admin: 09/14/24 20:00 Dose: 50 mg Documented By: Admin: 09/13/24 20:40 Dose: Not Given Documented By: Admin: 09/12/24 20:08 Dose: Not Given Documented By: Admin: 09/11/24 22:43 Dose: Not Given Documented By: Admin: 09/10/24 22:14 Dose: 50 mg Documented By: Admin: 09/09/24 20:53 Dose: 50 mg Documented By: Admin: 09/08/24 23:40 Dose: 50 mg Documented By: KATIE Zolpidem Tartrate (Zolpidem 5 Mg Tablet) 10 mg PO BEDTIME PRN PRN Reason: Sleep Last Admin: 09/14/24 21:59 Dose: 10 mg Documented By: Admin: 09/13/24 21:32 Dose: 10 mg Documented By: Admin: 09/12/24 22:18 Dose: 10 mg Documented By: Admin: 09/11/24 22:27 Dose: 10 mg Documented By: AT Vital Signs Vital signs: Vital Signs - 8 hr 09/08/24 05:54 09/08/24 06:00 09/08/24 06:00 Pulse Rate 122 H 118 H Respiratory Rate 29 H 30 H Blood Pressure 123/60 Pulse Oximetry 95 95 Oxygen Delivery Method 09/08/24 06:30 09/08/24 06:31 09/08/24 06:31 Pulse Rate 109 H 105 H Respiratory Rate 31 H 29 H Blood Pressure 94/48 L Pulse Oximetry 97 99 Oxygen Delivery Method Room Air Room Air 09/08/24 06:33 09/08/24 06:33 09/08/24 07:00 Pulse Rate 106 H 105 H Respiratory Rate 28 H 22 Blood Pressure 98/51 L Pulse Oximetry 98 93 Oxygen Delivery Method Room Air 09/08/24 07:00 09/08/24 07:30 09/08/24 07:30 Pulse Rate 104 H Respiratory Rate 23 Blood Pressure 107/52 L 109/57 L Pulse Oximetry 93 Oxygen Delivery Method 09/08/24 08:00 09/08/24 08:00 09/08/24 08:30 Pulse Rate 103 H Respiratory Rate 18 Blood Pressure 101/54 L 103/52 L Pulse Oximetry 94 Oxygen Delivery Method 09/08/24 08:30 09/08/24 09:00 09/08/24 09:04 Pulse Rate 100 H 97 H 96 H Respiratory Rate 21 24 23 Blood Pressure Pulse Oximetry 95 96 94 Oxygen Delivery Method 09/08/24 09:04 09/08/24 09:30 09/08/24 09:30 Pulse Rate 93 H Respiratory Rate 16 Blood Pressure 105/56 L 103/56 L Pulse Oximetry 94 Oxygen Delivery Method 09/08/24 10:00 09/08/24 10:00 09/08/24 10:10 Pulse Rate 91 H 91 H Respiratory Rate 19 12 Blood Pressure 98/55 L Pulse Oximetry 96 96 Oxygen Delivery Method 09/08/24 10:10 09/08/24 10:30 09/08/24 10:30 Pulse Rate 88 Respiratory Rate 20 Blood Pressure 101/54 L 105/59 L Pulse Oximetry 95 Oxygen Delivery Method <Ana Clayton MD - Last Filed: 09/08/24 13:47> Orders Ordered: Discontinued Medications Acetaminophen (Acetaminophen 325 Mg Tablet) 650 mg PO Q6H PRN PRN Reason: Fever/Mild Pain (1-3) Last Admin: 09/11/24 16:39 Dose: 650 mg Documented By: Admin: 09/11/24 08:38 Dose: 650 mg Documented By: Admin: 09/10/24 15:18 Dose: 650 mg Documented By: Admin: 09/10/24 09:48 Dose: 650 mg Documented By: Admin: 09/09/24 16:11 Dose: 650 mg Documented By: Admin: 09/09/24 09:48 Dose: 650 mg Documented By: BT Albuterol (Albuterol 2.5 Mg/3 Ml Neb (Adult)) 2.5 mg INH [id number] PRN PRN Reason: Wheezing Last Admin: 09/12/24 08:44 Dose: 2.5 mg Documented By: Admin: 09/11/24 22:03 Dose: 2.5 mg Documented By: Admin: 09/11/24 16:07 Dose: 2.5 mg Documented By: AVINASH Albuterol (Albuterol 2.5 Mg/3 Ml Neb (Adult)) 2.5 mg INH Q2H PRN PRN Reason: Shortness Of Breath Or Wheezing Last Admin: 09/14/24 18:57 Dose: 2.5 mg Documented By: Admin: 09/14/24 15:56 Dose: 2.5 mg Documented By: Admin: 09/14/24 12:44 Dose: 2.5 mg Documented By: Admin: 09/14/24 08:48 Dose: 2.5 mg Documented By: Admin: 09/13/24 19:31 Dose: 2.5 mg Documented By: Admin: 09/13/24 15:29 Dose: 2.5 mg Documented By: Admin: 09/13/24 12:37 Dose: 2.5 mg Documented By: Admin: 09/13/24 08:33 Dose: 2.5 mg Documented By: Admin: 09/13/24 04:51 Dose: 2.5 mg Documented By: Admin: 09/12/24 19:20 Dose: 2.5 mg Documented By: Admin: 09/12/24 12:43 Dose: 2.5 mg Documented By: AVINASH Alprazolam (Alprazolam 0.25 Mg Tablet) 0.5 mg PO DAILY PRN PRN Reason: anxiety Last Admin: 09/14/24 21:58 Dose: 0.5 mg Documented By: Admin: 09/13/24 05:15 Dose: 0.5 mg Documented By: Admin: 09/12/24 20:07 Dose: 0.5 mg Documented By: Admin: 09/12/24 10:37 Dose: 0.5 mg Documented By: Admin: 09/11/24 02:03 Dose: 0.5 mg Documented By: Admin: 09/10/24 15:19 Dose: 0.5 mg Documented By: Admin: 09/09/24 20:52 Dose: 0.5 mg Documented By: Admin: 09/09/24 03:21 Dose: 0.5 mg Documented By: KATIE Diphenhydramine HCl (Diphenhydramine 50 Mg/Ml Vial) 50 mg IV NOW ONE Stop: 09/08/24 05:51 Last Admin: 09/08/24 06:02 Dose: 50 mg Documented By: RANULFO Diphenhydramine HCl (Diphenhydramine 25 Mg Tablet) 25 mg PO Q6HR PRN PRN Reason: Itching Last Admin: 09/13/24 21:32 Dose: 25 mg Documented By: Admin: 09/10/24 20:33 Dose: 25 mg Documented By: Admin: 09/09/24 16:09 Dose: 25 mg Documented By: Admin: 09/09/24 09:48 Dose: 25 mg Documented By: Admin: 09/09/24 03:20 Dose: 25 mg Documented By: KATIE Docusate Sodium (Docusate 100 Mg Capsule) 100 mg PO BID PRN PRN Reason: Constipation Last Admin: 09/12/24 22:18 Dose: 100 mg Documented By: POLLY Epinephrine HCl (Epinephrine 1 Mg/Ml) 0.3 mg IM NOW ONE Stop: 09/08/24 05:51 Last Admin: 09/08/24 06:02 Dose: 0.3 mg Documented By: RANULFO Famotidine (Famotidine 20 Mg/2 Ml Vial) 20 mg IV NOW [facility] Last Admin: 09/08/24 06:02 Dose: 20 mg Documented By: RANULFO Gabapentin (Gabapentin 100 Mg Capsule) 100 mg PO NOW ONE Stop: 09/08/24 22:15 Last Admin: 09/08/24 23:40 Dose: 100 mg Documented By: KATIE Gabapentin (Gabapentin 300 Mg Capsule) 300 mg PO BID [facility] Last Admin: 09/10/24 20:33 Dose: 300 mg Documented By: Admin: 09/10/24 09:47 Dose: 300 mg Documented By: Admin: 09/10/24 00:22 Dose: 300 mg Documented By: KATIE Gabapentin (Gabapentin 400 Mg Capsule) 400 mg PO TID [facility] Last Admin: 09/15/24 08:55 Dose: 400 mg Documented By: Admin: 09/14/24 20:00 Dose: 400 mg Documented By: Admin: 09/14/24 14:34 Dose: 400 mg Documented By: Admin: 09/14/24 08:30 Dose: 400 mg Documented By: Admin: 09/13/24 20:40 Dose: 400 mg Documented By: Admin: 09/13/24 15:46 Dose: 400 mg Documented By: JYasir Admin: 09/13/24 08:15 Dose: 400 mg Documented By: JYasir Admin: 09/12/24 20:07 Dose: 400 mg Documented By: Admin: 09/12/24 14:58 Dose: 400 mg Documented By: Admin: 09/12/24 08:17 Dose: 400 mg Documented By: Admin: 09/11/24 20:32 Dose: 400 mg Documented By: Admin: 09/11/24 14:11 Dose: 400 mg Documented By: Admin: 09/11/24 08:38 Dose: 400 mg Documented By: BT Guaifenesin (Guaifenesin Er 600 Mg Tab) 600 mg PO Q12HR PRN PRN Reason: Cough Last Admin: 09/11/24 08:37 Dose: 600 mg Documented By: Admin: 09/10/24 09:53 Dose: 600 mg Documented By: Admin: 09/09/24 16:41 Dose: 600 mg Documented By: ROB Guaifenesin (Guaifenesin Solution 100 Mg/5 Ml Udc) 200 mg PO Q4HR PRN PRN Reason: Cough Hydromorphone HCl (Hydromorphone Hcl 0.5 Mg/0.5 Ml Syringe) 0.5 mg IV Q15MIN PRN PRN Reason: Pain, Last Admin: 09/08/24 10:07 Dose: 0.5 mg Documented By: Admin: 09/08/24 08:59 Dose: 0.5 mg Documented By: Admin: 09/08/24 08:13 Dose: 0.5 mg Documented By: ES Hydromorphone HCl (Hydromorphone Hcl 0.5 Mg/0.5 Ml Syringe) 0.5 mg IV Q2H PRN PRN Reason: Pain, Moderate (4-6) Last Admin: 09/14/24 14:34 Dose: 0.5 mg Documented By: Admin: 09/14/24 12:10 Dose: 0.5 mg Documented By: Admin: 09/14/24 10:13 Dose: 0.5 mg Documented By: Admin: 09/13/24 21:43 Dose: 0.5 mg Documented By: Admin: 09/13/24 21:32 Dose: 0.5 mg Documented By: Admin: 09/13/24 17:30 Dose: 0.5 mg Documented By: Admin: 09/13/24 13:00 Dose: 0.5 mg Documented By: Admin: 09/13/24 08:15 Dose: 0.5 mg Documented By: Admin: 09/13/24 05:10 Dose: 0.5 mg Documented By: Admin: 09/13/24 02:00 Dose: 0.5 mg Documented By: Admin: 09/12/24 12:52 Dose: 0.5 mg Documented By: Admin: 09/12/24 10:25 Dose: 0.5 mg Documented By: Admin: 09/12/24 08:18 Dose: 0.5 mg Documented By: Admin: 09/12/24 05:46 Dose: 0.5 mg Documented By: Admin: 09/11/24 23:32 Dose: 0.5 mg Documented By: Admin: 09/11/24 20:32 Dose: 0.5 mg Documented By: Admin: 09/11/24 18:32 Dose: 0.5 mg Documented By: Admin: 09/11/24 10:05 Dose: 0.5 mg Documented By: Admin: 09/11/24 03:11 Dose: 0.5 mg Documented By: Admin: 09/10/24 22:14 Dose: 0.5 mg Documented By: Admin: 09/09/24 20:53 Dose: 0.5 mg Documented By: Admin: 09/08/24 16:23 Dose: 0.5 mg Documented By: JOSE Hydromorphone HCl (Hydromorphone 1 Mg Inj) 1 mg IV Q4H PRN PRN Reason: Pain, Severe (7-10) Last Admin: 09/14/24 19:48 Dose: 1 mg Documented By: Admin: 09/14/24 15:33 Dose: 1 mg Documented By: Admin: 09/14/24 05:38 Dose: 1 mg Documented By: Admin: 09/12/24 20:07 Dose: 1 mg Documented By: Admin: 09/12/24 15:04 Dose: 1 mg Documented By: Admin: 09/11/24 13:30 Dose: 1 mg Documented By: Admin: 09/09/24 14:35 Dose: 1 mg Documented By: Admin: 09/09/24 02:22 Dose: 1 mg Documented By: Admin: 09/08/24 17:45 Dose: 1 mg Documented By: JOSE Lactated Ringer's (Lactated Ringers) 1,000 mls @ 1,000 mls/hr IV BOLUS ONE Stop: 09/08/24 06:49 Last Infusion: 09/08/24 07:13 Dose: Infused Documented By: Admin: 09/08/24 06:03 Dose: 1,000 mls/hr Documented By: RANULFO Sodium Chloride (Normal Saline 0.9%) 1,000 mls @ 150 mls/hr IV CONT WILLI Last Infusion: 09/08/24 15:16 Dose: Infused Documented By: Admin: 09/08/24 08:13 Dose: 150 mls/hr Documented By: JA Sodium Chloride (Normal Saline 0.9%) 1,000 mls @ 100 mls/hr IV CONT WILLI Last Infusion: 09/10/24 07:57 Dose: Infused Documented By: Admin: 09/09/24 21:47 Dose: 100 mls/hr Documented By: Infusion: 09/09/24 21:47 Dose: Infused Documented By: Admin: 09/09/24 12:02 Dose: 100 mls/hr Documented By: Infusion: 09/09/24 12:02 Dose: Infused Documented By: Admin: 09/09/24 02:26 Dose: 100 mls/hr Documented By: Infusion: 09/09/24 01:22 Dose: Infused Documented By: Admin: 09/08/24 15:22 Dose: 100 mls/hr Documented By: DEWAYNE Levothyroxine Sodium (Levothyroxine 88 Mcg Tablet) 88 mcg PO DAILY@0600 [facility] Last Admin: 09/15/24 05:57 Dose: 88 mcg Documented By: Admin: 09/14/24 05:36 Dose: 88 mcg Documented By: Admin: 09/13/24 05:06 Dose: 88 mcg Documented By: Admin: 09/12/24 05:42 Dose: 88 mcg Documented By: Admin: 09/11/24 06:11 Dose: 88 mcg Documented By: Admin: 09/10/24 06:17 Dose: 88 mcg Documented By: Admin: 09/09/24 06:47 Dose: 88 mcg Documented By: KATIE Magnesium Hydroxide (Magnesium Hydroxide 30 Ml Udc) 30 ml PO NOW ONE Stop: 09/10/24 18:15 Last Admin: 09/10/24 18:34 Dose: 30 ml Documented By: ROB Magnesium Hydroxide (Magnesium Hydroxide 30 Ml Udc) 30 ml PO NOW ONE Stop: 09/11/24 15:13 Last Admin: 09/11/24 15:23 Dose: 30 ml Documented By: ROB Magnesium Hydroxide (Magnesium Hydroxide 30 Ml Udc) 30 ml PO DAILY PRN PRN Reason: Constipation Last Admin: 09/13/24 08:14 Dose: 30 ml Documented By: EMILI Methylprednisolone (Methylprednisolone 125 Mg/2 Ml Vial) 125 mg IV NOW ONE Stop: 09/08/24 05:51 Last Admin: 09/08/24 06:03 Dose: 125 mg Documented By: RANULFO Methylprednisolone (Methylprednisolone 125 Mg/2 Ml Vial) 125 mg IV Q8H [facility] Last Admin: 09/14/24 08:31 Dose: 125 mg Documented By: Admin: 09/14/24 01:09 Dose: 125 mg Documented By: Admin: 09/13/24 17:30 Dose: 125 mg Documented By: Admin: 09/13/24 09:43 Dose: 125 mg Documented By: Admin: 09/13/24 01:58 Dose: 125 mg Documented By: Admin: 09/12/24 17:25 Dose: 125 mg Documented By: Admin: 09/12/24 10:25 Dose: 125 mg Documented By: EMILI Naloxone HCl (Naloxone 0.4 Mg/Ml Vial) 0.2 mg IV Q2MIN PRN PRN Reason: Opiate Reversal Nitrofurantoin Macrocrystals (Nitrofurantoin Er 100 Mg Capsule) 100 mg PO BID [facility] Last Admin: 09/15/24 08:55 Dose: 100 mg Documented By: Admin: 09/14/24 20:00 Dose: 100 mg Documented By: Admin: 09/14/24 08:30 Dose: 100 mg Documented By: Admin: 09/13/24 20:40 Dose: 100 mg Documented By: Admin: 09/13/24 08:15 Dose: 100 mg Documented By: Admin: 09/12/24 20:07 Dose: 100 mg Documented By: Admin: 09/12/24 08:17 Dose: 100 mg Documented By: Admin: 09/11/24 20:32 Dose: 100 mg Documented By: Admin: 09/11/24 08:38 Dose: 100 mg Documented By: Admin: 09/10/24 20:33 Dose: 100 mg Documented By: Admin: 09/10/24 09:47 Dose: 100 mg Documented By: Admin: 09/09/24 20:53 Dose: 100 mg Documented By: Admin: 09/09/24 09:48 Dose: 100 mg Documented By: Admin: 09/08/24 20:09 Dose: 100 mg Documented By: TRACEE Ondansetron HCl (Ondansetron 4 Mg/2 Ml Inj) 4 mg IV NOW PRN PRN Reason: Nausea And Vomiting Last Admin: 09/08/24 06:02 Dose: 4 mg Documented By: RANULFO Ondansetron HCl (Ondansetron 4 Mg Odt) 4 mg PO NOW PRN PRN Reason: Nausea And Vomiting Ondansetron HCl (Ondansetron 4 Mg/2 Ml Inj) 4 mg IV NOW ONE Stop: 09/08/24 11:01 Last Admin: 09/08/24 11:06 Dose: 4 mg Documented By: JA Ondansetron HCl (Ondansetron 4 Mg/2 Ml Inj) 4 mg IV Q8HR PRN PRN Reason: Nausea And Vomiting Last Admin: 09/10/24 18:03 Dose: 4 mg Documented By: Admin: 09/09/24 20:53 Dose: 4 mg Documented By: Admin: 09/08/24 16:25 Dose: 4 mg Documented By: JOSE Ondansetron HCl (Ondansetron 4 Mg/2 Ml Inj) 4 mg IV Q4HR PRN PRN Reason: Nausea And Vomiting Last Admin: 09/14/24 14:39 Dose: 4 mg Documented By: Admin: 09/14/24 05:36 Dose: 4 mg Documented By: Admin: 09/13/24 21:32 Dose: 4 mg Documented By: Admin: 09/13/24 17:36 Dose: 4 mg Documented By: Admin: 09/13/24 04:25 Dose: 4 mg Documented By: Admin: 09/12/24 20:07 Dose: 4 mg Documented By: Admin: 09/12/24 10:25 Dose: 4 mg Documented By: Admin: 09/12/24 05:46 Dose: 4 mg Documented By: Admin: 09/11/24 20:32 Dose: 4 mg Documented By: Admin: 09/11/24 08:38 Dose: 4 mg Documented By: Admin: 09/11/24 03:11 Dose: 4 mg Documented By: Admin: 09/10/24 22:14 Dose: 4 mg Documented By: AT Oxycodone HCl (Oxycodone Ir 5 Mg Tablet) 5 mg PO Q4HR PRN PRN Reason: Pain, Moderate (4-6) Last Admin: 09/15/24 01:48 Dose: 5 mg Documented By: Admin: 09/14/24 12:10 Dose: 5 mg Documented By: Admin: 09/13/24 04:25 Dose: 5 mg Documented By: Admin: 09/11/24 16:39 Dose: 5 mg Documented By: Admin: 09/11/24 08:37 Dose: 5 mg Documented By: Admin: 09/10/24 15:19 Dose: 5 mg Documented By: Admin: 09/10/24 09:48 Dose: 5 mg Documented By: Admin: 09/10/24 06:17 Dose: 5 mg Documented By: Admin: 09/09/24 23:37 Dose: 5 mg Documented By: Admin: 09/09/24 16:11 Dose: 5 mg Documented By: Admin: 09/09/24 09:48 Dose: 5 mg Documented By: ROB Oxycodone HCl (Oxycodone Ir 10 Mg Tablet) 10 mg PO Q3HR PRN PRN Reason: Pain, Severe (7-10) Last Admin: 09/15/24 08:56 Dose: 10 mg Documented By: Admin: 09/14/24 22:01 Dose: 10 mg Documented By: KATIE Oxycodone/Acetaminophen (Oxycodone/Acetaminophen 5/325 Tablet) 1 tab PO NOW ONE Stop: 09/08/24 11:01 Last Admin: 09/08/24 11:06 Dose: 1 tab Documented By: ES Pantoprazole Sodium (Pantoprazole 40 Mg Vial) 40 mg IV BID WILLI Last Admin: 09/15/24 08:55 Dose: 40 mg Documented By: Admin: 09/14/24 20:00 Dose: 40 mg Documented By: Admin: 09/14/24 08:31 Dose: 40 mg Documented By: Admin: 09/13/24 20:40 Dose: 40 mg Documented By: Admin: 09/13/24 08:15 Dose: 40 mg Documented By: Admin: 09/12/24 20:07 Dose: 40 mg Documented By: Admin: 09/12/24 10:25 Dose: 40 mg Documented By: EMILI Phenazopyridine HCl (Phenazopyridine 100 Mg Tablet) 100 mg PO TID [facility] Last Admin: 09/15/24 08:55 Dose: 100 mg Documented By: Admin: 09/14/24 20:00 Dose: 100 mg Documented By: Admin: 09/14/24 14:34 Dose: 100 mg Documented By: RIGO Polyethylene Glycol (Polyethylene Glycol 3350 17 Gm Powd.Pack) 17 gm PO DAILY [facility] Last Admin: 09/15/24 08:57 Dose: Not Given Documented By: Admin: 09/14/24 08:31 Dose: 17 gm Documented By: Admin: 09/13/24 08:14 Dose: 17 gm Documented By: Admin: 09/12/24 08:17 Dose: 17 gm Documented By: Admin: 09/11/24 08:38 Dose: 17 gm Documented By: Admin: 09/10/24 18:34 Dose: 17 gm Documented By: ROB Prednisone (Prednisone 20 Mg Tablet) 40 mg PO DAILY [facility] Last Admin: 09/10/24 09:47 Dose: 40 mg Documented By: Admin: 09/09/24 11:29 Dose: 40 mg Documented By: ROB Prednisone (Prednisone 20 Mg Tablet) 60 mg PO DAILY [facility] Last Admin: 09/12/24 08:17 Dose: 60 mg Documented By: Admin: 09/11/24 08:38 Dose: 60 mg Documented By: ROB Prednisone (Prednisone 20 Mg Tablet) 30 mg PO DAILY [facility] Sennosides (Sennosides 8.6 Mg Tablet) 8.6 mg PO BID [facility] Last Admin: 09/15/24 08:56 Dose: 8.6 mg Documented By: Admin: 09/14/24 20:00 Dose: Not Given Documented By: Admin: 09/14/24 08:31 Dose: 8.6 mg Documented By: Admin: 09/13/24 20:40 Dose: 8.6 mg Documented By: Admin: 09/13/24 08:15 Dose: 8.6 mg Documented By: Admin: 09/12/24 22:18 Dose: 8.6 mg Documented By: POLLY Sertraline HCl (Sertraline 50 Mg Tablet) 150 mg PO DAILY [facility] Last Admin: 09/15/24 08:56 Dose: 150 mg Documented By: Admin: 09/14/24 08:31 Dose: 150 mg Documented By: Admin: 09/13/24 08:15 Dose: 150 mg Documented By: Admin: 09/12/24 08:17 Dose: 150 mg Documented By: Admin: 09/11/24 08:37 Dose: 150 mg Documented By: Admin: 09/10/24 09:47 Dose: 150 mg Documented By: Admin: 09/09/24 09:48 Dose: 150 mg Documented By: ROB Sodium Chloride (Sodium Chloride 0.9% Flush) 10 ml IV BID [facility] Last Admin: 09/15/24 08:56 Dose: 10 ml Documented By: Admin: 09/14/24 20:02 Dose: 10 ml Documented By: Admin: 09/14/24 19:49 Dose: 10 ml Documented By: Admin: 09/14/24 08:31 Dose: 10 ml Documented By: Admin: 09/13/24 20:41 Dose: 10 ml Documented By: LORI Trazodone HCl (Trazodone 50 Mg Tablet) 50 mg PO BEDTIME [facility] Last Admin: 09/14/24 20:00 Dose: 50 mg Documented By: Admin: 09/13/24 20:40 Dose: Not Given Documented By: Admin: 09/12/24 20:08 Dose: Not Given Documented By: Admin: 09/11/24 22:43 Dose: Not Given Documented By: Admin: 09/10/24 22:14 Dose: 50 mg Documented By: Admin: 09/09/24 20:53 Dose: 50 mg Documented By: Admin: 09/08/24 23:40 Dose: 50 mg Documented By: KATIE Zolpidem Tartrate (Zolpidem 5 Mg Tablet) 10 mg PO BEDTIME PRN PRN Reason: Sleep Last Admin: 09/14/24 21:59 Dose: 10 mg Documented By: Admin: 09/13/24 21:32 Dose: 10 mg Documented By: Admin: 09/12/24 22:18 Dose: 10 mg Documented By: Admin: 09/11/24 22:27 Dose: 10 mg Documented By: AT Vital Signs Vital signs: Vital Signs - 8 hr 09/08/24 05:54 09/08/24 06:00 09/08/24 06:00 Pulse Rate 122 H 118 H Respiratory Rate 29 H 30 H Blood Pressure 123/60 Pulse Oximetry 95 95 Oxygen Delivery Method 09/08/24 06:30 09/08/24 06:31 09/08/24 06:31 Pulse Rate 109 H 105 H Respiratory Rate 31 H 29 H Blood Pressure 94/48 L Pulse Oximetry 97 99 Oxygen Delivery Method Room Air Room Air 09/08/24 06:33 09/08/24 06:33 09/08/24 07:00 Pulse Rate 106 H 105 H Respiratory Rate 28 H 22 Blood Pressure 98/51 L Pulse Oximetry 98 93 Oxygen Delivery Method Room Air 09/08/24 07:00 09/08/24 07:30 09/08/24 07:30 Pulse Rate 104 H Respiratory Rate 23 Blood Pressure 107/52 L 109/57 L Pulse Oximetry 93 Oxygen Delivery Method 09/08/24 08:00 09/08/24 08:00 09/08/24 08:30 Pulse Rate 103 H Respiratory Rate 18 Blood Pressure 101/54 L 103/52 L Pulse Oximetry 94 Oxygen Delivery Method 09/08/24 08:30 09/08/24 09:00 09/08/24 09:04 Pulse Rate 100 H 97 H 96 H Respiratory Rate 21 24 23 Blood Pressure Pulse Oximetry 95 96 94 Oxygen Delivery Method 09/08/24 09:04 09/08/24 09:30 09/08/24 09:30 Pulse Rate 93 H Respiratory Rate 16 Blood Pressure 105/56 L 103/56 L Pulse Oximetry 94 Oxygen Delivery Method 09/08/24 10:00 09/08/24 10:00 09/08/24 10:10 Pulse Rate 91 H 91 H Respiratory Rate 19 12 Blood Pressure 98/55 L Pulse Oximetry 96 96 Oxygen Delivery Method 09/08/24 10:10 09/08/24 10:30 09/08/24 10:30 Pulse Rate 88 Respiratory Rate 20 Blood Pressure 101/54 L 105/59 L Pulse Oximetry 95 Oxygen Delivery Method MDM - Allergic Reaction <Monika Kong, DO - Last Filed: 10/26/24 07:47> Lab Data 09/13/24 12:00 09/13/24 12:00 Labs: Lab Results 09/08/24 09/08/24 09/09/24 Range/Units 05:45 05:55 11:22 WBC 8.2 (4.5-11.0) X10^3/uL RBC 4.43 (4.0-5.2) X10^6/uL Hgb 14.3 (12.0-16.0) g/dL Hct 41.3 (36-46) % MCV 93.1 (80-100) fL MCH 32.2 (26-34) PG MCHC 34.6 (30-36) % RDW 13.6 (11.6-14.8) % Plt Count 174 (150-400) X10^3/uL Neut % (Auto) 90.3 H (50-75) % Lymph % (Auto) 4.3 L (25-40) % Hall % (Auto) 2.6 L (3-14) % Eos % (Auto) 2.5 (2-4) % Baso % (Auto) 0.3 (0-2) % Neut # (Auto) 7400 H (6012-5705) /uL Lymph # (Auto) 400 L (1758-9573) /uL Hall # (Auto) 200 (0-900) /uL Eos # (Auto) 200 (0-450) /uL Baso # (Auto) 0 (0-100) /uL PT 12.9 H (9.4-12.5) SECONDS INR 1.1 (0.9-1.3) APTT 33 (25.1-36.5) SECONDS Sodium 134 L (137-145) mmol/L Potassium 4.0 (3.4-5.1) mmol/L Chloride 107 (98-107) mmol/L Carbon Dioxide 18 L (22-32) mmol/L BUN 21 H (7-17) mg/dL Creatinine 0.95 (0.52-1.04) mg/dL Estimated GFR > 60 (>60) mL/min BUN/Creatinine Ratio 22.1 H (6-22) Glucose 149 H (70-99) mg/dL Lactate 2.0 (0.7-2.1) mmol/L Calcium 9.0 (8.4-10.2) mg/dL Total Bilirubin 1.0 (0.2-1.3) mg/dL AST 28 (14-36) IU/L ALT 33 (<35) IU/L Alkaline Phosphatase 91 (38-126) U/L Total Creatine Kinase 39 (30-135) U/L Troponin I < 0.012 (0.01-0.034) ng/mL Total Protein 8.0 (6.3-8.2) g/dL Albumin 4.3 (3.5-5.0) g/dL Globulin 3.7 (1.7-4.1) g/dL Albumin/Globulin Ratio 1.2 (1.0-2.8) Procalcitonin 0.164 (<0.5) ng/mL Urine Color Yellow Urine Appearance Cloudy Urine pH 5.5 (4.5-8.0) Ur Specific [place] >=1.030 H (1.000-1.035) Urine Protein Trace H (Negative) Urine Glucose (UA) Negative (Negative) g/dL Urine Ketones Negative (NEGATIVE) Urine Occult Blood Trace-intact (Negative) Urine Nitrate Negative (Negative) Urine Bilirubin Negative (NEGATIVE) Urine Urobilinogen 0.2 (0.2) E.U./dL Ur Leukocyte Esterase 2+ H (NEGATIVE) Urine RBC 1-5/hpf D (0-5/HPF) Urine WBC 30-100/hpf H (0-5/HPF) Ur Squamous Epith Cells 0-1 /hpf (0-5/HPF) Urine Bacteria None seen (None) Ur Culture Indicated? Specimen cultured Vol Urine Centrifuged 10ml (spun) SARS-CoV-2 (PCR) Negative (Negative) Influenza A (RT-PCR) Flu a negative (NEGATIVE) Influenza B (RT-PCR) Flu b negative (NEGATIVE) RSV (PCR) Negative (Negative) ECG Data Attestation: I personally reviewed and interpreted this ECG as follows: Prior ECG tracings: available for review Interpretation: EKG shows sinus tachycardia rate of 124 OR 144 QRS is 76 QTC of 410, no acute ST elevation. Patient was prior from 07/20/2012 nonspecific change. MDM Narrative Medical decision making narrative: 54-year-old female with a history of Vargas Samson to ciprofloxacin approximately 30 years ago took a dose of leftover Levaquin from her for presumptive UTI symptoms and developed quite a bit of irritation and redness of her extremities no blistering but patient notes oral irritation of the tongue, lips and airway, she notes some slight change to voice but no other swelling. Patient was tachycardic upon arrival. Suspect patient maybe having similar reaction we will go ahead and treat for potential anaphylaxis although sounds like has been slowly progressive overnight and initial symptoms onset was yesterday evening. EKG shows sinus tachycardia. Chest x-ray, overnight read shows no acute cardiopulmonary abnormality identified. No airspace consolidation, no pneumothorax, no pleural effusion, no congestive changes. Cardiovascular silhouette is normal. Visualized soft tissue and osseous structures are unremarkable. Labs patient has a normal white count, hemoglobin and platelets predominance of neutrophils. INR is 1.1, PTT is 33, chemistries shows sodium of 134 CO2 18 BUN 21 creatinine 0.91 glucose of 149 lactate is 2 LFTs are normal troponin is less than 0.012, procalcitonin is 0.164 Urine shows trace protein no glucose negative ketones trace blood, negative nitrates 2+ leuks 1-5 RBCs 3200 WBCs 1 squamous, no bacteria specimen was sent for culture. Patient received Pepcid, Solu-Medrol, Benadryl, epinephrine, 1L lactated ringers. On recheck at 0630 patient does not feel improved with medications but does not feel any worse heart rates slightly improved in the 110s but she was also received about a 3rd of L of lactated Ringer's. Patient signed out to Dr. Clayton. <Ana Clayton MD - Last Filed: 09/08/24 13:47> Lab Data Labs: Lab Results 09/08/24 09/08/24 09/09/24 Range/Units 05:45 05:55 11:22 WBC 8.2 (4.5-11.0) X10^3/uL RBC 4.43 (4.0-5.2) X10^6/uL Hgb 14.3 (12.0-16.0) g/dL Hct 41.3 (36-46) % MCV 93.1 (80-100) fL MCH 32.2 (26-34) PG MCHC 34.6 (30-36) % RDW 13.6 (11.6-14.8) % Plt Count 174 (150-400) X10^3/uL Neut % (Auto) 90.3 H (50-75) % Lymph % (Auto) 4.3 L (25-40) % Hall % (Auto) 2.6 L (3-14) % Eos % (Auto) 2.5 (2-4) % Baso % (Auto) 0.3 (0-2) % Neut # (Auto) 7400 H (6237-3889) /uL Lymph # (Auto) 400 L (1958-9079) /uL Hall # (Auto) 200 (0-900) /uL Eos # (Auto) 200 (0-450) /uL Baso # (Auto) 0 (0-100) /uL PT 12.9 H (9.4-12.5) SECONDS INR 1.1 (0.9-1.3) APTT 33 (25.1-36.5) SECONDS Sodium 134 L (137-145) mmol/L Potassium 4.0 (3.4-5.1) mmol/L Chloride 107 (98-107) mmol/L Carbon Dioxide 18 L (22-32) mmol/L BUN 21 H (7-17) mg/dL Creatinine 0.95 (0.52-1.04) mg/dL Estimated GFR > 60 (>60) mL/min BUN/Creatinine Ratio 22.1 H (6-22) Glucose 149 H (70-99) mg/dL Lactate 2.0 (0.7-2.1) mmol/L Calcium 9.0 (8.4-10.2) mg/dL Total Bilirubin 1.0 (0.2-1.3) mg/dL AST 28 (14-36) IU/L ALT 33 (<35) IU/L Alkaline Phosphatase 91 (38-126) U/L Total Creatine Kinase 39 (30-135) U/L Troponin I < 0.012 (0.01-0.034) ng/mL Total Protein 8.0 (6.3-8.2) g/dL Albumin 4.3 (3.5-5.0) g/dL Globulin 3.7 (1.7-4.1) g/dL Albumin/Globulin Ratio 1.2 (1.0-2.8) Procalcitonin 0.164 (<0.5) ng/mL Urine Color Yellow Urine Appearance Cloudy Urine pH 5.5 (4.5-8.0) Ur Specific [place] >=1.030 H (1.000-1.035) Urine Protein Trace H (Negative) Urine Glucose (UA) Negative (Negative) g/dL Urine Ketones Negative (NEGATIVE) Urine Occult Blood Trace-intact (Negative) Urine Nitrate Negative (Negative) Urine Bilirubin Negative (NEGATIVE) Urine Urobilinogen 0.2 (0.2) E.U./dL Ur Leukocyte Esterase 2+ H (NEGATIVE) Urine RBC 1-5/hpf D (0-5/HPF) Urine WBC 30-100/hpf H (0-5/HPF) Ur Squamous Epith Cells 0-1 /hpf (0-5/HPF) Urine Bacteria None seen (None) Ur Culture Indicated? Specimen cultured Vol Urine Centrifuged 10ml (spun) SARS-CoV-2 (PCR) Negative (Negative) Influenza A (RT-PCR) Flu a negative (NEGATIVE) Influenza B (RT-PCR) Flu b negative (NEGATIVE) RSV (PCR) Negative (Negative) MDM Narrative Medical decision making narrative: 54-year-old female with a history of Vargas Samson to ciprofloxacin approximately 30 years ago took a dose of leftover Levaquin from her for presumptive UTI symptoms and developed quite a bit of irritation and redness of her extremities no blistering but patient notes oral irritation of the tongue, lips and airway, she notes some slight change to voice but no other swelling. Patient was tachycardic upon arrival. Suspect patient maybe having similar reaction we will go ahead and treat for potential anaphylaxis although sounds like has been slowly progressive overnight and initial symptoms onset was yesterday evening. EKG shows sinus tachycardia. Chest x-ray, overnight read shows no acute cardiopulmonary abnormality identified. No airspace consolidation, no pneumothorax, no pleural effusion, no congestive changes. Cardiovascular silhouette is normal. Visualized soft tissue and osseous structures are unremarkable. Labs patient has a normal white count, hemoglobin and platelets predominance of neutrophils. INR is 1.1, PTT is 33, chemistries shows sodium of 134 CO2 18 BUN 21 creatinine 0.91 glucose of 149 lactate is 2 LFTs are normal troponin is less than 0.012, procalcitonin is 0.164 Urine shows trace protein no glucose negative ketones trace blood, negative nitrates 2+ leuks 1-5 RBCs 3200 WBCs 1 squamous, no bacteria specimen was sent for culture. Patient received Pepcid, Solu-Medrol, Benadryl, epinephrine, 1L lactated ringers. On recheck at 0630 patient does not feel improved with medications but does not feel any worse heart rates slightly improved in the 110s but she was also received about a 3rd of L of lactated Ringer's. Patient signed out to Dr. Clayton. Dr Clayton 7am Care assumed, patient independently evaluated, examined, chart is reviewed. Additional history: After a single dose of ciprofloxacin approximately 30 years ago she had very similar symptoms. She ended up hospitalized for almost a week. Describes significant skin sloughing and mucocutaneous involvement. She notes that today, her feet are increasingly painful, hands are painful and more swollen, she is getting a sore throat, complaining that her eyes are burning and itching Exam: All areas of physical complaint are increasingly erythematous with mild edema, no blisters no obvious skin breakdown, cardiac and pulmonary exams are benign at this time We will discuss case with [facility], given the single dose of antibiotic and severe results last time, symptoms continuing to escalate this time after a single dose of Levaquin, I can only assume that she will get at least as bad as she did last time. Fluids as she is willing to tolerate, with increasing sore throat, we will start maintenance MS, as needed Dilaudid for pain control Patient is updated with concerns findings and plans 815am discussed with transfer center. With patient permission pictures were taken and electronically transmitted 945am Discussed with Dr Lowery, Derm Resident . Given current symptoms the fact that she is hemodynamically stable, able to eat and drink recommendation was to treat this as a localized allergic reaction. Did not feel that transfer to was necessary nor appropriate at this time however if she started have feeing desquamating lesions or mucocutaneous blistering, unable to eat or drink than she would be much more appropriate. With shared decision-making Agata and I discussed options. In terms of discharge home she is quite concerned the with only 18 hours and she is already close to where she was on day 2 with her 1st episode she is worried that this will continue to progress rapidly and she is uncomfortable with discharge home. will discuss with our admitting hospitalist to consider observation admit verses ER observation versus actual discharge home over the next 24 hours to let the disease process declare itself as benign or toxic. will change to PO meds to confirm that she is able to tolerate. As the the UTI, I 'm not convinced she truly has not infection. She has 2+ leukocyte esterase no nitrates has white cells no red cells no bacteria and specimen has been cultured. will hold on antibiotics at this time Care was discussed with Dr. Harrell and patient will be admitted for further observation Discharge Plan Departure Patient Disposition: Admitted as Observation Clinical Impression: Rash, Vargas-Samson syndrome Admit Date/Time: 09/11/24 08:48 Admit Provider: Susan Moreno
[2024-09-08 05:58] LABS: Culture Indicated Urine Specimen Cultured
[2024-09-08] MEDS: FAMOTIDINE 20 MG/2 ML VIAL IV (06:02)
[2024-09-08] MEDS: diphenhydrAMINE 50 MG/ML VIAL IV (06:02)
[2024-09-08] MEDS: EPINEPHrine 1 MG/ML 0.3 MG IM (06:02)
[2024-09-08] MEDS: ONDANSETRON 4 MG/2 ML INJ IV ×3 (06:02→16:25)
[2024-09-08] MEDS: LACTATED RINGERS 1,000 ML 1000 ML IV (06:03)
[2024-09-08 06:14] LABS: Add Manual Diff / Slide Review NO; Hematocrit 41.3 % (36-46); Hemoglobin 14.3 g/dL (12.0-16.0); Lymphocytes Absolute Auto 400 /uL (1100-4500); Mean Corpuscular HGB Conc 34.6 % (30-36); Mean Corpuscular Hemoglobin 32.2 PG (26-34); Mean Corpuscular Volume 93.1 fL (80-100); Platelet Count 174 X10^3/uL (150-400)
[2024-09-08 06:21] LABS: INR 1.1 (0.9-1.3); Prothrombin Time 12.9 SECONDS (9.4-12.5)
[2024-09-08 06:24] LABS: Alanine Aminotransferase 33 IU/L (<35); Albumin 4.3 g/dL (3.5-5.0); Albumin Globulin Ratio 1.2 (1.0-2.8); Alkaline Phosphatase 91 U/L (38-126); Blood Urea Nitrogen 21 mg/dL (7-17); Calcium 9.0 mg/dL (8.4-10.2); Carbon Dioxide 18 mmol/L (22-32); Chloride 107 mmol/L (98-107); Creatine Kinase 39 U/L (30-135); Estimated Glomerular Filt Rate > 60 mL/min (>60); Globulin 3.7 g/dL (1.7-4.1); Glucose 149 mg/dL (70-99); HEMOLYSIS < 15 (0-50); Potassium 4.0 mmol/L (3.4-5.1); Sodium 134 mmol/L (137-145); Total Protein 8.0 g/dL (6.3-8.2)
[2024-09-08 06:25] LABS: Lactate (Lactic Acid) 2.0 mmol/L (0.7-2.1)
[2024-09-08 06:29] LABS: PTT Partial Thromboplastin Tim 33 SECONDS (25.1-36.5)
[2024-09-08 06:37] LABS: Troponin I < 0.012 ng/mL (0.01-0.034)
[2024-09-08 06:42] LABS: Procalcitonin 0.164 ng/mL (<0.5)
[2024-09-08] MEDS: SODIUM CHLORIDE 0.9% 1,000 ML 150 ML IV (08:13)
[2024-09-08] MEDS: OXYCODONE/ACETAMINOPHEN 5/325 TABLET 1 TAB PO (11:06)
--- NOTE | 2024-09-08 12:41 | PM.HP.1 ---
History of Present Illness History of Present Illness Date Patient Seen: 09/08/24 Time Patient Seen: 14:18 Chief complaint: allergic reaction to an antibotic she took Narrative: This is a 54-year-old female with generalized anxiety disorder, hypothyroidism and insomnia who recently developed dysuria and took a single borrowed dose of 750 mg of levofloxacin last night. It turns out that 30 years ago she had a Vargas Samson type reaction to ciprofloxacin. She had not realized the relationship between these 2 medicines and within a brief time again experiencing similar symptoms. She recalls being in the hospital for 1 week. She states that the symptoms developed slowly, reaching a max at 3 days out. So far today the instep location on her feet has turned pink and her palms are pinker than usual. The 1st symptom she had started 1 hour after taking the antibiotic with itching in her hands and feet along with a fever of 103?. She has had a tight feeling in her feet, tingling in her hands and pain on her tongue. Her joints are aching. She had required Dilaudid for relief in the ED. this was discussed with the dermatology fellow at [facility] who indicated that without severe rash, desquamation, etc. she did not require inpatient treatment there. She is admitted here for observation given her track record. She is on Cosentyx infusions for her hidradenitis suppurativa. She has had more than 6 UTIs per year recently, beginning after her hysterectomy. She would likely benefit from topical estrogen treatment. 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 Penicillin allergy Vargas-Samson syndrome Generalized anxiety disorder Cognitive changes Post menopausal syndrome Insomnia Anxiety Hidradenitis suppurativa (1999) Depression (2004) Hypothyroidism Current smoker Surgical History (Updated 09/08/24 @ 15:43 by Susan Moreno MD) History of cholecystectomy History of hysterectomy Family History (Updated 09/08/24 @ 15:44 by Susan Moreno MD) Mother Kidney disease Father Rheumatic fever Social History household members: spouse Tobacco: How many years used: 30 quit status: considering quitting second hand exposure: Yes alcohol intake: never substance use type: does not use Meds Home Medications and Allergies Home Medications ?Medication ?Instructions ?Recorded ?Confirmed ?Type levothyroxine 88 mcg tablet 88 mcg PO DAILY #90 tabs 07/21/24 08/13/24 Rx sertraline 100 mg tablet 150 mg (1.5 x 100 mg) PO DAILY #45 08/13/24 08/13/24 Rx tabs trazodone 50 mg tablet 50 mg PO BEDTIME #30 tabs 08/13/24 08/13/24 Rx alprazolam 0.5 mg tablet 0.5 mg PO DAILY PRN anxiety #30 08/25/24 Rx tabs Allergies Allergy/AdvReac Type Severity Reaction Status Date / Time ciprofloxacin Allergy Severe DOMINIK Verified 09/08/24 05:47 JOHNSONS SYNDROME penicillin G Allergy Severe Anaphylaxic Verified 09/08/24 05:47 Shock Review of Systems Review of Systems Narrative: Positive for anxiety, skin rash, joint pain, fever, itching. Negative for chills, sweats, shortness breast, coughing, chest pain, abdominal pain, nausea, vomiting, sore throat, headaches, new allergies. Exam Vital Signs (past 8 hours): - 09/08/24 05:46 09/08/24 05:54 09/08/24 06:00 Temperature 99.7 F H Pulse Rate 144 H 122 H 118 H Respiratory Rate 24 29 H 30 H Blood Pressure 121/57 L Pulse Oximetry 95 95 95 Oxygen Delivery Method Room Air 09/08/24 06:00 09/08/24 06:30 09/08/24 06:31 Temperature Pulse Rate 109 H Respiratory Rate 31 H Blood Pressure 123/60 94/48 L Pulse Oximetry 97 Oxygen Delivery Method Room Air 09/08/24 06:31 09/08/24 06:33 09/08/24 06:33 Temperature Pulse Rate 105 H 106 H Respiratory Rate 29 H 28 H Blood Pressure 98/51 L Pulse Oximetry 99 98 Oxygen Delivery Method Room Air Room Air 09/08/24 07:00 09/08/24 07:00 09/08/24 07:30 Temperature Pulse Rate 105 H 104 H Respiratory Rate 22 23 Blood Pressure 107/52 L Pulse Oximetry 93 93 Oxygen Delivery Method 09/08/24 07:30 09/08/24 08:00 09/08/24 08:00 Temperature Pulse Rate 103 H Respiratory Rate 18 Blood Pressure 109/57 L 101/54 L Pulse Oximetry 94 Oxygen Delivery Method 09/08/24 08:30 09/08/24 08:30 09/08/24 09:00 Temperature Pulse Rate 100 H 97 H Respiratory Rate 21 24 Blood Pressure 103/52 L Pulse Oximetry 95 96 Oxygen Delivery Method 09/08/24 09:04 09/08/24 09:04 09/08/24 09:30 Temperature Pulse Rate 96 H 93 H Respiratory Rate 23 16 Blood Pressure 105/56 L Pulse Oximetry 94 94 Oxygen Delivery Method 09/08/24 09:30 09/08/24 10:00 09/08/24 10:00 Temperature Pulse Rate 91 H Respiratory Rate 19 Blood Pressure 103/56 L 98/55 L Pulse Oximetry 96 Oxygen Delivery Method 09/08/24 10:10 09/08/24 10:10 09/08/24 10:30 Temperature Pulse Rate 91 H 88 Respiratory Rate 12 20 Blood Pressure 101/54 L Pulse Oximetry 96 95 Oxygen Delivery Method 09/08/24 10:30 09/08/24 11:00 09/08/24 11:00 Temperature Pulse Rate 84 Respiratory Rate 23 Blood Pressure 105/59 L 96/54 L Pulse Oximetry 96 Oxygen Delivery Method Oxygen Delivery Method Room Air Narrative Exam Narrative: Alert and oriented x3. Appears to be in mild distress with anticipation of recurrent Vargas Samson progressive symptoms. Pupils are equally round and reactive to light and accommodation. Extraocular muscle intact Sclerae are pink and nonicteric Throat looks normal, no visible swelling. No desquamation of the lips. No signs of mucositis around the eyes. No lymph nodes are felt head, neck, supraclavicular area There is no thyromegaly JVD is less than 6 cm No carotid bruits heard Heart is regular rate and rhythm without murmur Lungs are clear to auscultation bilaterally Abdomen is obese, bowel sounds positive, nontender, no organomegaly Extremities have no ankle edema No joint swelling visible. Skin has pink rash on the in-step of both feet. No visible discoloration or rash on the palms. Neurologic exam: Motor function is 5/5 throughout. Deep tendon reflexes are normal. There is no tremor Cranial nerves 2-12 test intact. Objective Labs 09/08/24 05:55 09/08/24 05:55 Labs: Laboratory Results - last 24 hr 09/08/24 09/08/24 05:45 05:55 WBC 8.2 RBC 4.43 Hgb 14.3 Hct 41.3 MCV 93.1 MCH 32.2 MCHC 34.6 RDW 13.6 Plt Count 174 Neut % (Auto) 90.3 H Lymph % (Auto) 4.3 L [place] % (Auto) 2.6 L Eos % (Auto) 2.5 Baso % (Auto) 0.3 Neut # (Auto) 7400 H Lymph # (Auto) 400 L [place] # (Auto) 200 Eos # (Auto) 200 Baso # (Auto) 0 PT 12.9 H INR 1.1 APTT 33 Sodium 134 L Potassium 4.0 Chloride 107 Carbon Dioxide 18 L BUN 21 H Creatinine 0.95 Estimated GFR > 60 BUN/Creatinine Ratio 22.1 H Glucose 149 H Lactate 2.0 Calcium 9.0 Total Bilirubin 1.0 AST 28 ALT 33 Alkaline Phosphatase 91 Total Creatine Kinase 39 Troponin I < 0.012 Total Protein 8.0 Albumin 4.3 Globulin 3.7 Albumin/Globulin Ratio 1.2 Procalcitonin 0.164 Urine Color Yellow Urine Appearance Cloudy Urine pH 5.5 Ur Specific [place] >=1.030 H Urine Protein Trace H Urine Glucose (UA) Negative Urine Ketones Negative Urine Occult Blood Trace-intact Urine Nitrate Negative Urine Bilirubin Negative Urine Urobilinogen 0.2 Ur Leukocyte Esterase 2+ H Urine RBC 1-5/hpf D Urine WBC 30-100/hpf H Ur Squamous Epith Cells 0-1 /hpf Urine Bacteria None seen Ur Culture Indicated? Specimen cultured Vol Urine Centrifuged 10ml (spun) Assessment & Plan Assessment & Plan narrative: This is a 54-year-old female with generalized anxiety disorder, recurrent UTI, hypothyroidism, hidradenitis, and insomnia who recently developed dysuria and took a single borrowed dose of 750 mg of levofloxacin last night. It turns out that 30 years ago she had a Vargas Samson type reaction to ciprofloxacin. She had not realized the relationship between these 2 medicines and within a brief time again experiencing similar symptoms. Acute medication reaction, present on admission. Active. 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 So far no signs of rash but does have some discoloration of her feet and hands. -she took a borrowed 750 mg dose of levofloxacin last night. -within an hour she began experiencing symptoms she recalls similar to her previous S-J onset. -in the emergency department she was given Benadryl, epinephrine and steroids without any change in her symptoms. -she is admitted for observation overnight. Acute dysuria and UTI, present on admission. Active. -UA with 30-100 WBC -levofloxacin single dose should be effective for 24 hours. -begin Macrobid tomorrow. -urine culture pending -frequent UTIs likely related to vaginal mucosa atrophy of menopause. Topical estrogen is recommended. History of hidradenitis suppurativa, present on admission. Chronic. -the Cosentyx has been very helpful but could be contributing to the frequent UTIs with immunosuppression. Generalized anxiety disorder, present on admission, active. -this contributes to her anxiety feelings about impending recurrence of severe SJ. -continue sertraline, trazodone and as needed alprazolam. Enoxaparin for DVT prevention Backup decision maker is her . Time-Based Coding :: [TOTAL MINUTES] spent with patient and on the chart (including review of chart, obtaining history, exam, reviewing outside data, placing orders, documenting exam and treatment plan, and counseling patient) on [DATE].
[2024-09-08] MEDS: SODIUM CHLORIDE 0.9% 1,000 ML 100 ML IV (15:22)
[2024-09-08] MEDS: HYDROMORPHONE 1 MG INJ IV (17:45)
--- NOTE | 2024-09-08 18:40 | PC.NURSE ---
Patient arrived from ED this a.m. A&OX4. SBP slightly elevated. She denies n/v, SOB, CP. She has a rash to B feet, and palms of hands she states feels like burning no rash noted to back or chest or extremities. She does reports soreness begninning in throat and slight burning with urination. She requests a munoz placed to prevent burning if she breaks out in blisters. States during her prior reaction this happened about 3 days after ingestion of cipro. She reports pain in hips, knees, ankles and all of her joints. IVF NS at 150 ml/hr. Tele NSR. Continuous monitoring.
[2024-09-08] MEDS: NITROFURANTOIN ER 100 MG CAPSULE PO (20:09)
--- NOTE | 2024-09-08 20:12 | PC.NURSE ---
Pt reports to nurse, worsening in itching and burning to bilat. hands and feet. This nurse performed a full body scan to check for new spots. New erythemic spots were found on ankles, top of feet and zayas. Pt reports feeling blisters inside mouth (this is new). Provider was notified, no action taken at this time. States, Let me know if you need anything. Patient also reports increased abd/bladder pressure. Cath. bag has not been emptied since placement and has 100mL output in collection bag. Bladder scan was noted to have +450mL and Munoz was found in bed, out of patient. New munoz was placed, pt jeison. well.
[2024-09-08] MEDS: TRAZODONE 50 MG TABLET PO (23:40)
[2024-09-08] MEDS: GABAPENTIN 100 MG CAPSULE PO (23:40)
[2024-09-09 01:15] VITALS: BP 106/60; PULSE 67; RESP 18; TEMP 36.3; O2SAT 98
[2024-09-09] MEDS: HYDROMORPHONE 1 MG INJ IV ×2 (02:22→14:35)
[2024-09-09] MEDS: SODIUM CHLORIDE 0.9% 1,000 ML 100 ML IV ×3 (02:26→21:47)
[2024-09-09] MEDS: diphenhydrAMINE 25 MG TABLET PO ×3 (03:20→16:09)
--- NOTE | 2024-09-09 03:22 | PC.NURSE ---
Patient having a lot of itching so Dr. Kendrick contacted and order received for Benadryl. Has not been able to sleep due to itching and burning type pain so medicated with both Benadryl and Alprazolam.
[2024-09-09 04:20] VITALS: BP 104/59; PULSE 60; RESP 18; TEMP 36.1; O2SAT 98
[2024-09-09] MEDS: LEVOTHYROXINE 88 MCG TABLET PO (06:47)
[2024-09-09 08:00] VITALS: BP 94/60; PULSE 60; RESP 14; TEMP 36.4; O2SAT 98
[2024-09-09] MEDS: OXYCODONE IR 5 MG TABLET PO ×3 (09:48→23:37)
[2024-09-09] MEDS: NITROFURANTOIN ER 100 MG CAPSULE PO ×2 (09:48→20:53)
[2024-09-09] MEDS: SERTRALINE 50 MG TABLET 150 MG PO (09:48)
[2024-09-09] MEDS: ACETAMINOPHEN 325 MG TABLET 650 MG PO ×2 (09:48→16:11)
--- NOTE | 2024-09-09 11:01 | PM.PN.1 ---
Subjective Subjective Interval history: S: She was still is having a lot of sensitivity in her mouth, hands and feet as well as groin. She insists on keeping the Robertson in because of severe dysuria and states that this feels exactly like her previous episode of Vargas Samson syndrome. Exam Vital Signs (past 8 hours): - 09/09/24 04:20 09/09/24 08:00 Temperature 97.0 F L 97.5 F L Pulse Rate 60 60 Respiratory Rate 18 14 Blood Pressure 104/59 L 94/60 Pulse Oximetry 98 98 Oxygen Flow Rate 0 0 Oxygen Delivery Method Room Air Oxygen Flow Rate 0 Narrative Exam Narrative: NAD, alert and oriented. Fluent speech. Lungs are clear, normal rate and effort. Heart is regular, no murmur gallop or rub. Abdomen is soft, non distended. Extremities are free of edema. No mouth lesions. Her hands and feet are red. No blistering. Robertson catheter is in place. Objective Labs 09/08/24 05:55 09/08/24 05:55 [facility] Medical History Recurrent UTI 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 Penicillin allergy Vargas-Samson syndrome Generalized anxiety disorder Cognitive changes Post menopausal syndrome Insomnia Anxiety Hidradenitis suppurativa (1999) Depression (2004) Hypothyroidism Current smoker Surgical History History of cholecystectomy History of hysterectomy Family History Mother Kidney disease Father Rheumatic fever Social History household members: spouse Smoking Status: Former smoker Tobacco: How many years used: 30 quit status: considering quitting second hand exposure: Yes alcohol intake: never substance use type: does not use Assessment & Plan Assessment & Plan narrative: 1. Acute medication reaction, present on admission. Active. 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 So far no signs of rash but does have some discoloration of her feet and hands. 2. Acute dysuria and UTI, present on admission. Active. -UA with 30-100 WBC 3. History of hidradenitis suppurativa, present on admission. Chronic. -the Cosentyx has been very helpful but could be contributing to the frequent UTIs with immunosuppression. 4. Generalized anxiety disorder, present on admission, active. -this contributes to her anxiety feelings about impending recurrence of severe SJ. -continue sertraline, trazodone and as needed alprazolam. PLAN: -given severity of symptoms and history of severe reaction we will continue to observe her for skin desquamation and treat symptomatically. Enoxaparin for DVT prevention Time-Based Coding :: [TOTAL MINUTES] spent with patient and on the chart (including review of chart, obtaining history, exam, reviewing outside data, placing orders, documenting exam and treatment plan, and counseling patient) on [DATE].
[2024-09-09 12:00] VITALS: BP 103/54; PULSE 51; RESP 14; TEMP 36.3; O2SAT 98
[2024-09-09 13:11] LABS: Influenza A - CEPHEID Flu A NEGATIVE (NEGATIVE); Influenza B - CEPHEID Flu B NEGATIVE (NEGATIVE)
[2024-09-09 13:15] LABS: COVID-19 CEPHEID 4-PLEX PCR Negative (Negative)
[2024-09-09 16:00] VITALS: BP 126/57; PULSE 75; RESP 19; TEMP 36.1; O2SAT 98
[2024-09-09 20:00] VITALS: BP 129/69; PULSE 80; RESP 16; TEMP 36.1; O2SAT 97
[2024-09-09] MEDS: TRAZODONE 50 MG TABLET PO (20:53)
[2024-09-09] MEDS: ONDANSETRON 4 MG/2 ML INJ IV (20:53)
--- NOTE | 2024-09-09 23:03 | PC.NURSE ---
Patient is alert and oriented. Breath sounds CTA with RA sat of 97%. HRR w/telemetry reading of SR. Denied nausea but did request Zofran with IV Dilaudid as states she vomits when taking opiates. BT present and abdomen is soft. Indwelling catheter remains in place as due to burning pain in perineum it is too painful to urinate; urine is clear, light yellow. Is able to move herself in bed. Has not been out of bed as unable to bear weight on feet related to intense itch/burning pain bilaterally. Is wearing bilateral calf SCD's. Continues to have erythema in mouth and throat with some pain with swallowing but appears less deep red. Palms of hands still with mild erythema but soles of feet and medial feet bilaterally remain moderately erythemic. Groin/labia also still with some erythema. Medicated with Dilaudid for pain with reduction in pain from 5/10 to 3/10. Medicated with Alprazolam for anxiety in order to promote sleep. Fall risk score is moderate but alarm is not activated as makes no attempts to get out of bed at present time.
[2024-09-10] VITALS: BP 113/73; PULSE 56; RESP 16; TEMP 36.4; O2SAT 98
[2024-09-10] MEDS: GABAPENTIN 300 MG CAPSULE PO ×3 (00:22→20:33)
[2024-09-10 06:00] VITALS: BP 153/80; PULSE 55; RESP 17; TEMP 36.1; O2SAT 97
[2024-09-10] MEDS: LEVOTHYROXINE 88 MCG TABLET PO (06:17)
[2024-09-10] MEDS: OXYCODONE IR 5 MG TABLET PO ×3 (06:17→15:19)
[2024-09-10] MEDS: NITROFURANTOIN ER 100 MG CAPSULE PO ×2 (09:47→20:33)
[2024-09-10] MEDS: SERTRALINE 50 MG TABLET 150 MG PO (09:47)
[2024-09-10] MEDS: ACETAMINOPHEN 325 MG TABLET 650 MG PO ×2 (09:48→15:18)
[2024-09-10 10:00] VITALS: BP 111/66; PULSE 66; RESP 12; TEMP 36.4; O2SAT 98
--- NOTE | 2024-09-10 12:20 | P.PN_ITS ---
Subjective Subjective Interval history: Summary: She presented after taking a dose of levofloxacin and developing recurrent skin sensitivity, and redness of her hands and face as well as discomfort of her mouth and urethra. She has a history of Vargas Samson was Cipro and this feels identical. At that time, she had severe desquamation. She was started on prednisone on September 09. S: She was improving but still has a lot of pain in her mouth and especially her urethra. A Robertson remains in place due to severe pain with urination. Her feet and hands are red. Her hands are improving but her feet are very sensitive on the bottom. Exam Vital Signs (past 8 hours): - 09/10/24 06:00 09/10/24 10:00 Temperature 97.0 F L 97.6 F Pulse Rate 55 L 66 Respiratory Rate 17 12 Blood Pressure 153/80 H 111/66 Pulse Oximetry 97 98 Oxygen Flow Rate 0 0 Oxygen Delivery Method Room Air Oxygen Flow Rate 0 Narrative Exam Narrative: NAD, alert and oriented. Fluent speech. Lungs are clear, normal rate and effort. Heart is regular, no murmur gallop or rub. Abdomen is soft, non distended. Extremities are free of edema. No mouth lesions. Her hands and feet are red. No blistering. Robertson catheter is in place. Objective Labs 09/08/24 05:55 09/08/24 05:55 Labs: Laboratory Results - last 24 hr 09/09/24 11:22 SARS-CoV-2 (PCR) Negative Influenza A (RT-PCR) Flu a negative Influenza B (RT-PCR) Flu b negative RSV (PCR) Negative [facility] Medical History Recurrent UTI 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 Penicillin allergy Vargas-Samson syndrome Generalized anxiety disorder Cognitive changes Post menopausal syndrome Insomnia Anxiety Hidradenitis suppurativa (1999) Depression (2004) Hypothyroidism Current smoker Surgical History History of cholecystectomy History of hysterectomy Family History Mother Kidney disease Father Rheumatic fever Social History household members: spouse Smoking Status: Former smoker Tobacco: How many years used: 30 quit status: considering quitting second hand exposure: Yes alcohol intake: never substance use type: does not use Assessment & Plan Assessment & Plan narrative: 1. Acute medication reaction, present on admission. Active and slowly improving. 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 So far no signs of rash but does have some discoloration of her feet and hands. 2. Acute dysuria and UTI, present on admission. Active. -UA with 30-100 WBC. Cx 3 or inés mixed chang. 3. History of hidradenitis suppurativa, present on admission. Chronic. -the Cosentyx has been very helpful but could be contributing to the frequent UTIs with immunosuppression. 4. Generalized anxiety disorder, present on admission, active. -this contributes to her anxiety feelings about impending recurrence of severe SJ. -continue sertraline, trazodone and as needed alprazolam. PLAN: -she requires another night of observation and treatment with steroids for possible Vargas-Samson reaction. She was not having desquamation but has a lot of redness and sensitivity of the skin of her hands and feet as well as her mouth and urethra. DONATO: 09/11 if improved. Time-Based Coding :: [TOTAL MINUTES] spent with patient and on the chart (including review of chart, obtaining history, exam, reviewing outside data, placing orders, documenting exam and treatment plan, and counseling patient) on [DATE].
[2024-09-10 12:53] VITALS: BP 119/62; PULSE 63; RESP 16; TEMP 35.9; O2SAT 97
--- NOTE | 2024-09-10 13:20 | CM.DANOTE ---
Initial DCP Assessment Visit Note Reviewed EMR and team rounds for pt's status updates. Met with pt at bedside to introduce self and role, pt was found to be alert/oriented, but highly anxious about discharging home tomorrow. Pt lives independently with her spouse in their own home in [place]. Spouse will also transport her home once she's medically cleared for d/c. Payor: [place] PCP: Dr. Romero Pt is a 54 year-old F with a distant hx of Vargas Samson syndrome about 30-years ago secondary to a reaction to antibiotics. She took a dose of her spouse's Levaquin after thinking she was starting to develop a UTI, then had a worsening rash, redness on her extremities and around her urethra, necessitating a munoz catheter due to the pain/burning with urination. Symptoms were similiar to her Vargas Samson reaction in the past, but without severe symptoms. She was found to be tachycardic on EKG in the ED. She was started on IV fluids and Microbid, no abnormalities on imaging. Plan is to d/c home tomorrow, 09/11. No CM d/c needs are identified at this time. Discharge Planning/Care Management CM Discharge Assessment Start: 09/08/24 13:19 Freq: Status: Active Protocol: Document 09/10/24 13:18 DPL (Rec: 09/10/24 13:20 DPL [id number]) Discharge Planning Assessment Assigned Discharge STACY De La Rosa Active Directory Specialist Advance Directives? No History Provided By Patient,Medical Record Has Patient been No admitted in last 30 days? Prior Living House Arrangements Household Members spouse Type of Drives own vehicle transporation used prior to admit Independent with ADL Yes 's Is patient alert and Yes oriented? Caregiver for No Another Comment No identified home d/c needs at this time. Barriers to No Discharge Discharge Plan Home Transportation Spouse Arrangement Referrals Initiated None needed Whiteboard Updated Yes in Patient Room with name and ext. # of Informatics Nurse Review Status In Process Please Provide Date 09/10/24 Initial DC Assessment Was Performed
[2024-09-10 16:00] VITALS: BP 122/64; PULSE 64; RESP 14; TEMP 35.7; O2SAT 97
[2024-09-10] MEDS: ONDANSETRON 4 MG/2 ML INJ IV ×2 (18:03→22:14)
[2024-09-10] MEDS: MAGNESIUM HYDROXIDE 30 ML UDC PO (18:34)
[2024-09-10 20:00] VITALS: BP 116/63; PULSE 68; RESP 16; TEMP 36.4; O2SAT 94
[2024-09-10] MEDS: diphenhydrAMINE 25 MG TABLET PO (20:33)
[2024-09-10] MEDS: TRAZODONE 50 MG TABLET PO (22:14)
[2024-09-11] VITALS (9 sets, daily range): BP systolic 98–135; BP diastolic 57–73; PULSE 51–83; RESP 15–18; TEMP 35.9–36.6; O2SAT 92–100
[2024-09-11] MEDS: ONDANSETRON 4 MG/2 ML INJ IV ×3 (03:11→20:32)
[2024-09-11] MEDS: LEVOTHYROXINE 88 MCG TABLET PO (06:11)
--- NOTE | 2024-09-11 07:07 | PM.PN.1 ---
Subjective Subjective Date Patient Seen: 09/11/24 Interval history: She has been coughing more the last 2 days. She says she is unable to walk because of the pain in her feet and lower extremity joints. She has a reddish palate without oral desquamation. She has dressings on her plantar foot surfaces along with small blisters. She also has blisters on the top of her feet. She is already on gabapentin for this burning pain so that dose will be increased. She had a very painful night. She is getting Dilaudid for that and we will increase her prednisone from 40 up to 60 mg. She describes her recollection of the time frame when she had Sam Davies the last time, indicating that the worst desquamation was on day 7. She is certainly worse than she was when I last saw her a few days ago. Exam Vital Signs (past 8 hours): - 09/11/24 00:00 09/11/24 04:00 Temperature 97.9 F 97.8 F Pulse Rate 65 51 L Respiratory Rate 16 15 Blood Pressure 135/73 98/62 Pulse Oximetry 98 92 Oxygen Flow Rate 0 0 Oxygen Delivery Method Room Air Oxygen Flow Rate 0 Narrative Exam Narrative: Alert and oriented x3. Continues to be quite anxious and uncomfortable with joint and muscle pain. Heart is regular rate and rhythm without murmur Lungs are clear to auscultation bilaterally Extremities have no ankle edema. There is subtle swelling of both hands and both feet. There are resolving 0.5 cm blisters on the top of her right foot along with linear still intact blisters on the plantar surface. The palms are slightly red across the joint surfaces. The palate is slightly red also Objective Labs 09/08/24 05:55 09/08/24 05:55 [facility] Medical History Recurrent UTI 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 Penicillin allergy Vargas-Samson syndrome Generalized anxiety disorder Cognitive changes Post menopausal syndrome Insomnia Anxiety Hidradenitis suppurativa (1999) Depression (2004) Hypothyroidism Current smoker Surgical History History of cholecystectomy History of hysterectomy Family History Mother Kidney disease Father Rheumatic fever Social History household members: spouse Smoking Status: Former smoker Tobacco: How many years used: 30 quit status: considering quitting second hand exposure: Yes alcohol intake: never substance use type: does not use Assessment & Plan Assessment & Plan narrative: 1. Acute medication reaction, present on admission. Active and slowly improving. 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 On day 3.-4 she has developed small blisters on her feet and continued mild redness and swelling on the palms and soles along with the soft palate. 2. Acute dysuria and UTI, present on admission. Active. -UA with 30-100 WBC. Cx mixed Gram-positive chang. 3. History of hidradenitis suppurativa, present on admission. Chronic. -the Cosentyx has been very helpful but could be contributing to the frequent UTIs with immunosuppression. 4. Generalized anxiety disorder, present on admission, active. -this contributes to her anxiety feelings about impending recurrence of severe SJ. -continue sertraline, trazodone and as needed alprazolam. PLAN: -she requires another night of observation and treatment with steroids for possible Vargas-Samson reaction. She is now having mild foot blistering/desquamation along with slight redness and sensitivity of the skin of her hands and feet as well as her mouth and urethra. She is experiencing severe pain. -increased prednisone dose to 60 mg daily -continue dilaudid for groin and foot pain -chest x-ray for cough DONATO: 09/12 if improved. Time-Based Coding :: [TOTAL MINUTES] spent with patient and on the chart (including review of chart, obtaining history, exam, reviewing outside data, placing orders, documenting exam and treatment plan, and counseling patient) on [DATE].
[2024-09-11] MEDS: OXYCODONE IR 5 MG TABLET PO ×2 (08:37→16:39)
[2024-09-11] MEDS: SERTRALINE 50 MG TABLET 150 MG PO (08:37)
[2024-09-11] MEDS: NITROFURANTOIN ER 100 MG CAPSULE PO ×2 (08:38→20:32)
[2024-09-11] MEDS: GABAPENTIN 400 MG CAPSULE PO ×3 (08:38→20:32)
[2024-09-11] MEDS: ACETAMINOPHEN 325 MG TABLET 650 MG PO ×2 (08:38→16:39)
--- NOTE | 2024-09-11 10:51 | CM.DPNOTE ---
DCP Continued: Reviewed EMR and team rounds for pt?s medical status. Per hospitalist, pt is evidently undergoing symptoms of Vargas-Samson syndrome and will require at least a couple of days in the hospital. No discharge needs identified at this time, will need TCM notification (Dr. Romero) at discharge. Plan: Anticipating dc home with spouse on 09/13 or when medically cleared. CM Team will continue to follow for coordination of discharge plans. VEL AntonioSW
[2024-09-11] MEDS: HYDROMORPHONE 1 MG INJ IV (13:30)
--- NOTE | 2024-09-11 13:36 | DI.RAD.S_ITS ---
PROCEDURE: XR CHEST 1V INDICATIONS: Cough TECHNIQUE: One view of the chest was acquired. COMPARISON: [facility], CR, XR CHEST 1V, 09/08/2024, 5:48. [facility], CR, XR CHEST 2V, 02/14/2024, 12:30. FINDINGS: Surgical changes and devices: Anterior cervical fusion plate. Lungs and pleura: Lungs are clear. No pleural effusions or pneumothorax. Mediastinum: Mediastinal contours appear normal. Heart size is normal. Bones and chest wall: No suspicious bony lesions. Overlying soft tissues appear unremarkable. IMPRESSION: No acute cardiopulmonary abnormality is seen. Dictated by: Emanuel Valente M.D. on 09/11/2024 at 15:05 Approved by: Emanuel Valente M.D. on 09/11/2024 at 15:05
[2024-09-11] MEDS: MAGNESIUM HYDROXIDE 30 ML UDC PO (15:23)
[2024-09-11] MEDS: ALBUTEROL 2.5 MG/3 ML NEB (ADULT) INH ×2 (16:07→22:03)
[2024-09-11] MEDS: ZOLPIDEM 5 MG TABLET 10 MG PO (22:27)
[2024-09-12] VITALS (9 sets, daily range): BP systolic 100–130; BP diastolic 45–87; PULSE 63–99; RESP 16–17; TEMP 35.9–36.6; O2SAT 94–100
[2024-09-12] MEDS: LEVOTHYROXINE 88 MCG TABLET PO (05:42)
[2024-09-12] MEDS: ONDANSETRON 4 MG/2 ML INJ IV ×3 (05:46→20:07)
[2024-09-12 05:51] LABS: Add Manual Diff / Slide Review NO; Hematocrit 37.6 % (36-46); Hemoglobin 12.9 g/dL (12.0-16.0); Lymphocytes Absolute Auto 2100 /uL (1100-4500); Mean Corpuscular HGB Conc 34.3 % (30-36); Mean Corpuscular Hemoglobin 32.4 PG (26-34); Mean Corpuscular Volume 94.4 fL (80-100); Platelet Count 197 X10^3/uL (150-400)
[2024-09-12 06:05] LABS: Alanine Aminotransferase 57 IU/L (<35); Albumin 3.8 g/dL (3.5-5.0); Albumin Globulin Ratio 1.2 (1.0-2.8); Alkaline Phosphatase 74 U/L (38-126); Blood Urea Nitrogen 16 mg/dL (7-17); Calcium 8.9 mg/dL (8.4-10.2); Carbon Dioxide 32 mmol/L (22-32); Chloride 100 mmol/L (98-107); Estimated Glomerular Filt Rate > 60 mL/min (>60); Globulin 3.2 g/dL (1.7-4.1); Glucose 143 mg/dL (70-99); HEMOLYSIS < 15 (0-50); Potassium 4.0 mmol/L (3.4-5.1); Sodium 136 mmol/L (137-145); Total Protein 7.0 g/dL (6.3-8.2)
[2024-09-12] MEDS: NITROFURANTOIN ER 100 MG CAPSULE PO ×2 (08:17→20:07)
[2024-09-12] MEDS: GABAPENTIN 400 MG CAPSULE PO ×3 (08:17→20:07)
[2024-09-12] MEDS: SERTRALINE 50 MG TABLET 150 MG PO (08:17)
--- NOTE | 2024-09-12 08:34 | PM.PN.1 ---
Subjective Subjective Date Patient Seen: 09/12/24 Interval history: Chief complaint: Rash and desquamation secondary to Vargas-Samson syndrome after taking Levaquin History of present illness: 54-year-old female with generalized anxiety disorder, hypothyroidism and insomnia who recently developed dysuria and took a single borrowed dose of 750 mg of levofloxacin last night. It turns out that 30 years ago she had a Vargas Samson type reaction to ciprofloxacin. She had not realized the relationship between these 2 medicines and within a brief time again experiencing similar symptoms. She recalls being in the hospital for 1 week. She states that the symptoms developed slowly, reaching a max at 3 days out. So far today the instep location on her feet has turned pink and her palms are pinker than usual. The 1st symptom she had started 1 hour after taking the antibiotic with itching in her hands and feet along with a fever of 103?. She has had a tight feeling in her feet, tingling in her hands and pain on her tongue. Her joints are aching. She had required Dilaudid for relief in the ED. this was discussed with the dermatology fellow at [place] who indicated that without severe rash, desquamation, etc. she did not require inpatient treatment there. She is admitted here for observation given her track record. She is on Cosentyx infusions for her hidradenitis suppurativa. She has had more than 6 UTIs per year recently, beginning after her hysterectomy. She would likely benefit from topical estrogen treatment. Hospital course: 09/11: She has been coughing more the last 2 days. She says she is unable to walk because of the pain in her feet and lower extremity joints. She has a reddish palate without oral desquamation. She has dressings on her plantar foot surfaces along with small blisters. She also has blisters on the top of her feet. She is already on gabapentin for this burning pain so that dose will be increased. She had a very painful night. She is getting Dilaudid for that and we will increase her prednisone from 40 up to 60 mg. She describes her recollection of the time frame when she had Vargas Samson the last time, indicating that the worst desquamation was on day 7. She is certainly worse than she was when I last saw her a few days ago. 09/12: Palms and soles are having escalation of pain she has a large blister now forming on the base of her right sole of her foot images were sent to [facility] Review of systems: Physical exam: Assessment and plan: Acute medication reaction, present on admission. Active. 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 So far no signs of rash but does have some discoloration of her feet and hands. -she took a borrowed 750 mg dose of levofloxacin last night. -within an hour she began experiencing symptoms she recalls similar to her previous S-J onset. -in the emergency department she was given Benadryl, epinephrine and steroids without any change in her symptoms. -she is admitted for observation overnight. Acute dysuria and UTI, present on admission. Active. -UA with 30-100 WBC -levofloxacin single dose should be effective for 24 hours. -begin Macrobid tomorrow. -urine culture pending -frequent UTIs likely related to vaginal mucosa atrophy of menopause. Topical estrogen is recommended. History of hidradenitis suppurativa, present on admission. Chronic. -the Cosentyx has been very helpful but could be contributing to the frequent UTIs with immunosuppression. Generalized anxiety disorder, present on admission, active. -this contributes to her anxiety feelings about impending recurrence of severe SJ. -continue sertraline, trazodone and as needed alprazolam. Enoxaparin for DVT prevention Backup decision maker is her . Time-Based Coding :: 35 minute spent with patient and on the chart (including review of chart, obtaining history, exam, reviewing outside data, placing orders, documenting exam and treatment plan, and counseling patient) . Exam Vital Signs (past 8 hours): - 09/12/24 05:41 Temperature 96.8 F L Pulse Rate 63 Respiratory Rate 16 Blood Pressure 104/56 L Pulse Oximetry 95 Oxygen Flow Rate 0 Fraction of Inspired Oxygen 21 SaO2/FiO2 Ratio 333 Oxygen Delivery Method Room Air Oxygen Flow Rate 0 Objective Labs 09/13/24 12:00 09/13/24 12:00 Labs: Laboratory Results - last 24 hr 09/12/24 05:18 WBC 9.7 RBC 3.99 L Hgb 12.9 Hct 37.6 MCV 94.4 MCH 32.4 MCHC 34.3 RDW 13.4 Plt Count 197 Neut % (Auto) 72.4 Lymph % (Auto) 21.8 L [place] % (Auto) 5.1 Eos % (Auto) 0.3 L Baso % (Auto) 0.4 Neut # (Auto) 7000 Lymph # (Auto) 2100 [place] # (Auto) 500 Eos # (Auto) 0 Baso # (Auto) 0 Sodium 136 L Potassium 4.0 Chloride 100 Carbon Dioxide 32 BUN 16 Creatinine 0.69 Estimated GFR > 60 BUN/Creatinine Ratio 23.2 H Glucose 143 H Calcium 8.9 Total Bilirubin 0.3 AST 32 ALT 57 H Alkaline Phosphatase 74 Total Protein 7.0 Albumin 3.8 Globulin 3.2 Albumin/Globulin Ratio 1.2 PFSH Medical History Recurrent UTI 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 Penicillin allergy Vargas-Samson syndrome Generalized anxiety disorder Cognitive changes Post menopausal syndrome Insomnia Anxiety Hidradenitis suppurativa (1999) Depression (2004) Hypothyroidism Current smoker Surgical History History of cholecystectomy History of hysterectomy Family History Mother Kidney disease Father Rheumatic fever Social History household members: spouse Smoking Status: Former smoker Tobacco: How many years used: 30 quit status: considering quitting second hand exposure: Yes alcohol intake: never substance use type: does not use Assessment & Plan Time-Based Coding :: [TOTAL MINUTES] spent with patient and on the chart (including review of chart, obtaining history, exam, reviewing outside data, placing orders, documenting exam and treatment plan, and counseling patient) on [DATE].
[2024-09-12] MEDS: ALBUTEROL 2.5 MG/3 ML NEB (ADULT) INH ×3 (08:44→19:20)
[2024-09-12] MEDS: PANTOPRAZOLE 40 MG VIAL IV ×2 (10:25→20:07)
[2024-09-12] MEDS: HYDROMORPHONE 1 MG INJ IV ×2 (15:04→20:07)
[2024-09-12] MEDS: DOCUSATE 100 MG CAPSULE PO (22:18)
[2024-09-12] MEDS: SENNOSIDES 8.6 MG TABLET PO (22:18)
[2024-09-12] MEDS: ZOLPIDEM 5 MG TABLET 10 MG PO (22:18)
[2024-09-13] VITALS (10 sets, daily range): BP systolic 114–126; BP diastolic 60–72; PULSE 66–103; RESP 14–20; TEMP 36–36.2; O2SAT 95–100
[2024-09-13] MEDS: OXYCODONE IR 5 MG TABLET PO (04:25)
[2024-09-13] MEDS: ONDANSETRON 4 MG/2 ML INJ IV ×3 (04:25→21:32)
[2024-09-13] MEDS: ALBUTEROL 2.5 MG/3 ML NEB (ADULT) INH ×5 (04:51→19:31)
[2024-09-13] MEDS: LEVOTHYROXINE 88 MCG TABLET PO (05:06)
[2024-09-13] MEDS: MAGNESIUM HYDROXIDE 30 ML UDC PO (08:14)
[2024-09-13] MEDS: SERTRALINE 50 MG TABLET 150 MG PO (08:15)
[2024-09-13] MEDS: PANTOPRAZOLE 40 MG VIAL IV ×2 (08:15→20:40)
[2024-09-13] MEDS: SENNOSIDES 8.6 MG TABLET PO ×2 (08:15→20:40)
[2024-09-13] MEDS: GABAPENTIN 400 MG CAPSULE PO ×3 (08:15→20:40)
[2024-09-13] MEDS: NITROFURANTOIN ER 100 MG CAPSULE PO ×2 (08:15→20:40)
[2024-09-13 12:06] LABS: Add Manual Diff / Slide Review NO; Hematocrit 39.1 % (36-46); Hemoglobin 13.3 g/dL (12.0-16.0); Lymphocytes Absolute Auto 1100 /uL (1100-4500); Mean Corpuscular HGB Conc 33.9 % (30-36); Mean Corpuscular Hemoglobin 31.9 PG (26-34); Mean Corpuscular Volume 94.1 fL (80-100); Platelet Count 219 X10^3/uL (150-400)
[2024-09-13 12:19] LABS: Alanine Aminotransferase 79 IU/L (<35); Albumin 4.3 g/dL (3.5-5.0); Albumin Globulin Ratio 1.2 (1.0-2.8); Alkaline Phosphatase 86 U/L (38-126); Blood Urea Nitrogen 20 mg/dL (7-17); Calcium 9.2 mg/dL (8.4-10.2); Carbon Dioxide 29 mmol/L (22-32); Chloride 94 mmol/L (98-107); Estimated Glomerular Filt Rate > 60 mL/min (>60); Globulin 3.5 g/dL (1.7-4.1); Glucose 241 mg/dL (70-99); HEMOLYSIS < 15 (0-50); Potassium 4.6 mmol/L (3.4-5.1); Sodium 133 mmol/L (137-145); Total Protein 7.8 g/dL (6.3-8.2)
--- NOTE | 2024-09-13 17:15 | PM.PN.1 ---
Subjective Subjective Date Patient Seen: 09/13/24 Interval history: Chief complaint: Rash and desquamation secondary to Vargas-Samson syndrome after taking Levaquin History of present illness: 54-year-old female with generalized anxiety disorder, hypothyroidism and insomnia who recently developed dysuria and took a single borrowed dose of 750 mg of levofloxacin last night. It turns out that 30 years ago she had a Vargas Samson type reaction to ciprofloxacin. She had not realized the relationship between these 2 medicines and within a brief time again experiencing similar symptoms. She recalls being in the hospital for 1 week. She states that the symptoms developed slowly, reaching a max at 3 days out. So far today the instep location on her feet has turned pink and her palms are pinker than usual. The 1st symptom she had started 1 hour after taking the antibiotic with itching in her hands and feet along with a fever of 103?. She has had a tight feeling in her feet, tingling in her hands and pain on her tongue. Her joints are aching. She had required Dilaudid for relief in the ED. this was discussed with the dermatology fellow at [place] who indicated that without severe rash, desquamation, etc. she did not require inpatient treatment there. She is admitted here for observation given her track record. She is on Cosentyx infusions for her hidradenitis suppurativa. She has had more than 6 UTIs per year recently, beginning after her hysterectomy. She would likely benefit from topical estrogen treatment. Hospital course: 09/11: She has been coughing more the last 2 days. She says she is unable to walk because of the pain in her feet and lower extremity joints. She has a reddish palate without oral desquamation. She has dressings on her plantar foot surfaces along with small blisters. She also has blisters on the top of her feet. She is already on gabapentin for this burning pain so that dose will be increased. She had a very painful night. She is getting Dilaudid for that and we will increase her prednisone from 40 up to 60 mg. She describes her recollection of the time frame when she had Vargas Samson the last time, indicating that the worst desquamation was on day 7. She is certainly worse than she was when I last saw her a few days ago. 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 Exam Vital Signs (past 8 hours): - 09/13/24 12:00 09/13/24 12:37 09/13/24 15:29 Temperature 97.0 F L Pulse Rate 93 H 95 H 103 H Respiratory Rate 16 14 16 Blood Pressure 120/60 Pulse Oximetry 98 98 100 Oxygen Delivery Method Room Air Room Air Oxygen Flow Rate 0 09/13/24 16:00 Temperature 96.9 F L Pulse Rate 86 Respiratory Rate 18 Blood Pressure 114/61 Pulse Oximetry 96 Oxygen Delivery Method Oxygen Flow Rate 0 Fraction of Inspired Oxygen 21 SaO2/FiO2 Ratio 447 Oxygen Delivery Method Room Air Oxygen Flow Rate 0 Objective Labs 09/13/24 12:00 09/13/24 12:00 Labs: Laboratory Results - last 24 hr 09/13/24 12:00 WBC 17.5 H D RBC 4.15 Hgb 13.3 Hct 39.1 MCV 94.1 MCH 31.9 MCHC 33.9 RDW 13.2 Plt Count 219 Neut % (Auto) 91.3 H Lymph % (Auto) 6.4 L [place] % (Auto) 2.2 L Eos % (Auto) 0.0 L Baso % (Auto) 0.1 Neut # (Auto) 97575 H Lymph # (Auto) 1100 [place] # (Auto) 400 Eos # (Auto) 0 Baso # (Auto) 0 Sodium 133 L Potassium 4.6 Chloride 94 L Carbon Dioxide 29 BUN 20 H Creatinine 0.68 Estimated GFR > 60 BUN/Creatinine Ratio 29.4 H Glucose 241 H Calcium 9.2 Total Bilirubin 0.5 AST 38 H ALT 79 H Alkaline Phosphatase 86 C-Reactive Protein < 0.5 Total Protein 7.8 Albumin 4.3 Globulin 3.5 Albumin/Globulin Ratio 1.2 PFSH Medical History Recurrent UTI 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 Penicillin allergy Vargas-Samson syndrome Generalized anxiety disorder Cognitive changes Post menopausal syndrome Insomnia Anxiety Hidradenitis suppurativa (1999) Depression (2004) Hypothyroidism Current smoker Surgical History History of cholecystectomy History of hysterectomy Family History Mother Kidney disease Father Rheumatic fever Social History household members: spouse Smoking Status: Former smoker Tobacco: How many years used: 30 quit status: considering quitting second hand exposure: Yes alcohol intake: never substance use type: does not use Assessment & Plan Time-Based Coding :: [TOTAL MINUTES] spent with patient and on the chart (including review of chart, obtaining history, exam, reviewing outside data, placing orders, documenting exam and treatment plan, and counseling patient) on [DATE].
[2024-09-13] MEDS: SODIUM CHLORIDE 0.9% FLUSH 10 ML IV (20:41)
[2024-09-13] MEDS: ZOLPIDEM 5 MG TABLET 10 MG PO (21:32)
[2024-09-13] MEDS: diphenhydrAMINE 25 MG TABLET PO (21:32)
[2024-09-14] VITALS (9 sets, daily range): BP systolic 125–145; BP diastolic 60–75; PULSE 69–82; RESP 14–19; TEMP 36.2–36.9; O2SAT 94–100
--- NOTE | 2024-09-14 00:06 | PC.NURSE ---
Pt initially declined dose of diazepam, then changed her mind and requested to take it.
[2024-09-14] MEDS: ONDANSETRON 4 MG/2 ML INJ IV ×2 (05:36→14:39)
[2024-09-14] MEDS: LEVOTHYROXINE 88 MCG TABLET PO (05:36)
[2024-09-14] MEDS: HYDROMORPHONE 1 MG INJ IV ×3 (05:38→19:48)
[2024-09-14] MEDS: GABAPENTIN 400 MG CAPSULE PO ×3 (08:30→20:00)
[2024-09-14] MEDS: NITROFURANTOIN ER 100 MG CAPSULE PO ×2 (08:30→20:00)
[2024-09-14] MEDS: PANTOPRAZOLE 40 MG VIAL IV ×2 (08:31→20:00)
[2024-09-14] MEDS: SENNOSIDES 8.6 MG TABLET PO (08:31)
[2024-09-14] MEDS: SERTRALINE 50 MG TABLET 150 MG PO (08:31)
[2024-09-14] MEDS: SODIUM CHLORIDE 0.9% FLUSH 10 ML IV ×3 (08:31→20:02)
[2024-09-14] MEDS: ALBUTEROL 2.5 MG/3 ML NEB (ADULT) INH ×4 (08:48→18:57)
--- NOTE | 2024-09-14 10:59 | DIET.CONS ---
Dietary Consultation Note Admission Date: 09/11/2024 08:48 Assessment: 54 y F admitted for Rash and desquamation secondary to Vargas-Samson syndrome after taking Levaquin. Dietitian screened for LOS EMR reviewed, 75-100% PO intakes, DFM reviewed. Ht: 172.72 cm Wt: 93.44 kg BMI: 31.3 UBW: 90-92 within last year per chart Last BM: 09/07/24 (09/08/24 13:19) MNA: 14 Yovani Score: 18 Diet: 09/08/24 Dinner Dysphagia Diet Diet Modifications: Food Texture: Level 7 - Regular Liquid Consistency: Level 0 - Thin Nutrition Percent Meal Consumed 100% 09/14/24 10:52 Percent Meal Consumed 100% 09/13/24 09:01 Labs: RBC 4.15 X10^6/uL (4.0-5.2) 09/13/24 12:00 Hgb 13.3 g/dL (12.0-16.0) 09/13/24 12:00 Hct 39.1 % (36-46) 09/13/24 12:00 Creatinine 0.68 mg/dL (0.52-1.04) 09/13/24 12:00 Lactate 2.0 mmol/L (0.7-2.1) 09/08/24 05:55 Nutrition Diagnosis: no dx at this time Monitoring/Evaluations: PO intakes Electronically Signed by: Miriam Crouch 09/14/24 11:00 Clinical Dietitian [address] [address]
[2024-09-14] MEDS: OXYCODONE IR 5 MG TABLET PO (12:10)
[2024-09-14] MEDS: PHENAZOPYRIDINE 100 MG TABLET PO ×2 (14:34→20:00)
--- NOTE | 2024-09-14 16:15 | P.PN_ITS ---
Subjective Subjective Date Patient Seen: 09/14/24 Interval history: Chief complaint: Rash and desquamation secondary to Vargas-Samson syndrome after taking Levaquin History of present illness: 54-year-old female with generalized anxiety disorder, hypothyroidism and insomnia who recently developed dysuria and took a single borrowed dose of 750 mg of levofloxacin last night. It turns out that 30 years ago she had a Vargas Samson type reaction to ciprofloxacin. She had not realized the relationship between these 2 medicines and within a brief time again experiencing similar symptoms. She recalls being in the hospital for 1 week. She states that the symptoms developed slowly, reaching a max at 3 days out. So far today the instep location on her feet has turned pink and her palms are pinker than usual. The 1st symptom she had started 1 hour after taking the antibiotic with itching in her hands and feet along with a fever of 103?. She has had a tight feeling in her feet, tingling in her hands and pain on her tongue. Her joints are aching. She had required Dilaudid for relief in the ED. this was discussed with the dermatology fellow at [place] who indicated that without severe rash, desquamation, etc. she did not require inpatient treatment there. She is admitted here for observation given her track record. She is on Cosentyx infusions for her hidradenitis suppurativa. She has had more than 6 UTIs per year recently, beginning after her hysterectomy. She would likely benefit from topical estrogen treatment. Hospital course: 09/11: She has been coughing more the last 2 days. She says she is unable to walk because of the pain in her feet and lower extremity joints. She has a reddish palate without oral desquamation. She has dressings on her plantar foot surfaces along with small blisters. She also has blisters on the top of her feet. She is already on gabapentin for this burning pain so that dose will be increased. She had a very painful night. She is getting Dilaudid for that and we will increase her prednisone from 40 up to 60 mg. She describes her recollection of the time frame when she had Vargas Samson the last time, indicating that the worst desquamation was on day 7. She is certainly worse than she was when I last saw her a few days ago. 09/12: Palms and soles are having escalation of pain she has a large blister now forming on the base of her right sole of her foot images were sent to [facility] 09/13: Oral mucosa is less painful now and lungs have few wheezes and no rales 09/14: Skin lesions are fading quickly there is still significant pain with micturition the much less abdominal pain patient is having minimal respiratory symptoms at this time Review of systems: No fevers overnight No palpitations Physical exam: Mild distress HEENT vague erythema of the buccal mucosa Early blister formation of 1 ft and very minimal erythema on palms and soles No wheezes or rales on pulmonary exam today Assessment and plan: 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 Exam Vital Signs (past 8 hours): - 09/14/24 08:49 09/14/24 10:52 09/14/24 12:45 Temperature 97.7 F Pulse Rate 69 75 82 Respiratory Rate 16 18 16 Blood Pressure 133/75 Pulse Oximetry 99 96 99 Oxygen Delivery Method Room Air Room Air Oxygen Flow Rate 0 09/14/24 13:00 09/14/24 15:56 Temperature 98.4 F Pulse Rate 77 Respiratory Rate 14 Blood Pressure Pulse Oximetry 99 Oxygen Delivery Method Room Air Oxygen Flow Rate Fraction of Inspired Oxygen 21 SaO2/FiO2 Ratio 447 Oxygen Delivery Method Room Air Oxygen Flow Rate 0 Objective Labs 09/13/24 12:00 09/13/24 12:00 [facility] Medical History Recurrent UTI 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 Penicillin allergy Vargas-Samson syndrome Generalized anxiety disorder Cognitive changes Post menopausal syndrome Insomnia Anxiety Hidradenitis suppurativa (1999) Depression (2004) Hypothyroidism Current smoker Surgical History History of cholecystectomy History of hysterectomy Family History Mother Kidney disease Father Rheumatic fever Social History household members: spouse Smoking Status: Former smoker Tobacco: How many years used: 30 quit status: considering quitting second hand exposure: Yes alcohol intake: never substance use type: does not use Assessment & Plan Time-Based Coding :: [TOTAL MINUTES] spent with patient and on the chart (including review of chart, obtaining history, exam, reviewing outside data, placing orders, documenting exam and treatment plan, and counseling patient) on [DATE].
--- NOTE | 2024-09-14 16:41 | CM.DPC ---
DCP COnt: Per MD, pt making slow progress and to have munoz discontinued today and once pt can void independently and have bm without significant pain/sycope then she can discharge home with outpt follow up. STACY Fisher
[2024-09-14] MEDS: TRAZODONE 50 MG TABLET PO (20:00)
[2024-09-14] MEDS: ZOLPIDEM 5 MG TABLET 10 MG PO (21:59)
[2024-09-14] MEDS: OXYCODONE IR 10 MG TABLET PO (22:01)
--- NOTE | 2024-09-15 01:35 | PC.NURSE ---
Patient is alert and oriented. Breath sounds CTA with RA sat of 94%. HRR. Denied nausea. BT present and abdomen is soft; reports having had 5 BM's today so declined hs Senna. Had catheter removed on previous shift and has been able to void but reports it feels like molten hot lava when she urinates so has been requesting pain medication at times prior to urinating. Is able to turn herself in bed. Up to bathroom with walker and SBA; walks on sides of feet related to burning pain with full weight. Is wearing bilateral calf SCD's. Receiving Dilaudid and oxycodone for pain control. Skin on feet remains erythemic with darker red patches on soles of both feet that appear to be blistering. Labia minora is also bright red. Fall risk score is moderate; bed alarm not in use as patient calls appropriately for assistance out of bed.
[2024-09-15] MEDS: OXYCODONE IR 5 MG TABLET PO (01:48)
[2024-09-15] MEDS: LEVOTHYROXINE 88 MCG TABLET PO (05:57)
[2024-09-15 07:00] VITALS: BP 103/55; PULSE 71; RESP 15; TEMP 36.6; O2SAT 96
[2024-09-15] MEDS: GABAPENTIN 400 MG CAPSULE PO (08:55)
[2024-09-15] MEDS: NITROFURANTOIN ER 100 MG CAPSULE PO (08:55)
[2024-09-15] MEDS: PANTOPRAZOLE 40 MG VIAL IV (08:55)
[2024-09-15] MEDS: PHENAZOPYRIDINE 100 MG TABLET PO (08:55)
[2024-09-15] MEDS: SENNOSIDES 8.6 MG TABLET PO (08:56)
[2024-09-15] MEDS: SERTRALINE 50 MG TABLET 150 MG PO (08:56)
[2024-09-15] MEDS: OXYCODONE IR 10 MG TABLET PO (08:56)
[2024-09-15] MEDS: SODIUM CHLORIDE 0.9% FLUSH 10 ML IV (08:56)
--- NOTE | 2024-09-15 10:33 | CM.DPC ---
DCP Cont. Reviewed EMR and team rounds for pt's medical status and updates. Pt has been medically cleared for home d/c, her spouse will transport her home this am. No further CM d/c needs are identified at this time.
--- NOTE | 2024-09-15 12:28 | PC.NURSE ---
Discharge Note Patient A&O, VSS, RA, no complaints of pain/discomfort. Patient agreeable to discharge plan. Discharge packet reviewed with patient, all questions/concerns addressed. PIV discontinued. Patient able to dress self and pack all belongings. Patient taken down via wheelchair to POV accompanied by spouse.
--- NOTE | 2024-09-23 16:56 | PC.NURSE ---
Late entry note: Administered pain medication 1mg IV Dilaudid on 09/08 at 2203. Scan of medication was not saved, Jagruti Lam RN was witness of administration of IV medication at bedside.
--- NOTE | 2024-09-25 15:33 | PM.DS.1 ---
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 It turns out that 30 years ago she had a Vargas Samson type reaction to ciprofloxacin. She had not realized the relationship between these 2 medicines and within a brief time again experiencing similar symptoms. She recalls being in the hospital for 1 week. She states that the symptoms developed slowly, reaching a max at 3 days out. So far today the instep location on her feet has turned pink and her palms are pinker than usual. The 1st symptom she had started 1 hour after taking the antibiotic with itching in her hands and feet along with a fever of 103?. She has had a tight feeling in her feet, tingling in her hands and pain on her tongue. Her joints are aching. She had required Dilaudid for relief in the ED. this was discussed with the dermatology fellow at [place] who indicated that without severe rash, desquamation, etc. she did not require inpatient treatment there. She is admitted here for observation given her track record. She is on Cosentyx infusions for her hidradenitis suppurativa. She has had more than 6 UTIs per year recently, beginning after her hysterectomy. She would likely benefit from topical estrogen treatment. Hospital course: 09/11: She has been coughing more the last 2 days. She says she is unable to walk because of the pain in her feet and lower extremity joints. She has a reddish palate without oral desquamation. She has dressings on her plantar foot surfaces along with small blisters. She also has blisters on the top of her feet. She is already on gabapentin for this burning pain so that dose will be increased. She had a very painful night. She is getting Dilaudid for that and we will increase her prednisone from 40 up to 60 mg. She describes her recollection of the time frame when she had Vargas Samson the last time, indicating that the worst desquamation was on day 7. She is certainly worse than she was when I last saw her a few days ago. 09/12: Palms and soles are having escalation of pain she has a large blister now forming on the base of her right sole of her foot images were sent to [facility] 09/13: Oral mucosa is less painful now and lungs have few wheezes and no rales 09/14: Skin lesions are fading quickly there is still significant pain with micturition the much less abdominal pain patient is having minimal respiratory symptoms at this time 09/15: Patient much improved discharged home Review of systems: No fevers overnight No palpitations Physical exam: Mild distress HEENT vague erythema of the buccal mucosa Early blister formation of 1 ft and very minimal erythema on palms and soles No wheezes or rales on pulmonary exam today Assessment and plan: 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 Discharge Providers Provider Date of admission: 09/11/24 08:48 Discharge Date: 09/15/24 Primary care physician: Kell Romero MD Discharge provider: Emanuel Carreon MD Exam Vital Signs (past 8 hours): Fraction of Inspired Oxygen 21 SaO2/FiO2 Ratio 447 Oxygen Delivery Method Room Air Oxygen Flow Rate 0 Objective Labs 09/13/24 12:00 09/13/24 12:00 [facility] Medical History (Updated 09/22/24 @ 16:35 by Kell Romero MD) Vargas-Samson syndrome Recurrent UTI 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 Penicillin allergy Generalized anxiety disorder Cognitive changes Post menopausal syndrome Insomnia Anxiety Hidradenitis suppurativa (1999) Depression (2004) Hypothyroidism Current smoker Surgical History History of cholecystectomy History of hysterectomy Family History Mother Kidney disease Father Rheumatic fever Social History household members: spouse Tobacco: How many years used: 30 quit status: considering quitting second hand exposure: Yes alcohol intake: never substance use type: does not use Discharge Plan Departure Patient Disposition: Home Clinical Impression: Rash, Vargas-Samson syndrome
== END 2024-09-15 12:00 | disposition home or self-care (01) | DRG 596 ==
LOC: ED 07:09 → AC 10:48
PROVIDERS: Emergency Medicine; Hospitalist; Internal Medicine; Admitting Provider Family Medicine; Emergency Provider Emergency Medicine; Family Provider Physician Assistant; PCP Family Medicine; Referring Provider Emergency Medicine; Visit Provider Family Medicine
DX: L51.1 Stevens-Johnson syndrome (principal); N39.0 Urinary tract infection, site not specified; T36.8X5A Adverse effect of other systemic antibiotics, initial encounter; F17.200 Nicotine dependence, unspecified, uncomplicated; L73.2 Hidradenitis suppurativa; F41.1 Generalized anxiety disorder; Z78.0 Asymptomatic menopausal state; Z87.440 Personal history of urinary (tract) infections
CPT/HCPCS: 36415; 71045; 80053; 81001; 82550; 83605; 84145; 84484; 85025; 85610; 85730; 86140; 87040; 87086; 87637; 93005; 93010; 94640; 96361; 96372; 96374; 96375; 96376; 99284; G0378; J0165; J1171; J1200; J2405; J2470; J2919; J7613

== ENCOUNTER → 2024-11-22 11:36 | Outpatient (CLI) | payer OTHER, SELFPAY ==
[2024-09-08 13:19] VITALS: BMI 31.3
== END ==
PROVIDERS: Family Provider Physician Assistant; PCP Family Medicine; Visit Provider Registered Nurse
DX: R30.0 Dysuria (principal)
CPT/HCPCS: 87077; 87086

== ENCOUNTER → 2024-12-06 12:22 | Outpatient (CLI) | payer OTHER, SELFPAY ==
[2024-09-08 13:19] VITALS: BMI 31.3
== END ==
PROVIDERS: Family Provider Physician Assistant; PCP Family Medicine; Visit Provider Registered Nurse
DX: R30.0 Dysuria (principal)
CPT/HCPCS: 87077; 87086; 87186

== ENCOUNTER → 2024-12-16 18:16 | Outpatient (CLI) | payer OTHER, SELFPAY ==
[2024-09-08 13:19] VITALS: BMI 31.3
== END ==
PROVIDERS: Family Provider Physician Assistant; PCP Family Medicine; Visit Provider Nurse Practitioner Family
DX: R39.15 Urgency of urination (principal)
CPT/HCPCS: 87077; 87086

== ENCOUNTER → 2024-12-29 14:05 | Outpatient (CLI) | payer OTHER, SELFPAY ==
[2024-09-08 13:19] VITALS: BMI 31.3
== END ==
PROVIDERS: Family Provider Physician Assistant; PCP Family Medicine; Visit Provider Nurse Practitioner Family
DX: R30.0 Dysuria (principal)
CPT/HCPCS: 87086

== ENCOUNTER 2024-12-31 10:11 | Emergency (ER) | payer OTHER, SELFPAY ==
[2024-09-08 13:19] VITALS: BMI 31.3
[2024-12-31 10:26] VITALS: BP 127/66; PULSE 87; RESP 14; TEMP 37.2; O2SAT 96; BMI 33.3
--- NOTE | 2024-12-31 11:15 | ED.FEMALEGU ---
HPI - Female Genitourinary <Warner Arredondo PA-C - Last Filed: 12/31/24 13:06> General Chief complaint: Urogenital-Female Stated complaint: Battling UTI X 30 days on meds Time Seen by Provider: 12/31/24 11:01 Mode of arrival: Ambulatory History of Present Illness HPI Narrative: This 4-year-old female presenting to the emergency department due to recurrent UTIs over the last month. She states she has been on 3 courses of antibiotics which seemed to improve her symptoms while she was on them but then the symptoms returned. She was reporting some flank pain as well as some bloody clots in her urine. She states she did have a fever last night. Has taken all of the course of the antibiotics to completion. She also reports some suprapubic discomfort. Denies any rashes or vaginal discharge. Related Data Home Medications ?Medication ?Instructions ?Recorded ?Confirmed Ashwaganda PO DAILY 09/15/24 12/29/24 vitamin D3 1,250 mcg (50,000 cap PO DAILY 09/15/24 12/29/24 unit)-vitamin K2 200 mcg capsule Previous Rx's ?Medication ?Instructions ?Recorded levothyroxine 88 mcg tablet 88 mcg PO DAILY #90 tabs 07/21/24 prednisone 10 mg tablets in a dose See Rx Instructions PO .COMPLEX 09/15/24 pack #48 ea estradiol 0.01% (0.1 mg/gram) 1 appful vaginal DAILY #42.5 grams 09/22/24 vaginal cream sertraline 100 mg tablet 150 mg (1.5 x 100 mg) PO DAILY #45 10/08/24 tabs phenazopyridine 200 mg tablet 200 mg PO TID PRN pain 6 doses #6 11/22/24 (Pyridium) tabs phenazopyridine 200 mg tablet 200 mg PO TID PRN pain 6 doses #6 12/06/24 (Pyridium) tabs phenazopyridine 200 mg tablet 200 mg PO TID 6 doses #6 tabs 12/16/24 (Pyridium) phenazopyridine 200 mg tablet 200 mg PO TID 6 doses #6 tabs 12/29/24 (Pyridium) Allergies Allergy/AdvReac Type Severity Reaction Status Date / Time ciprofloxacin Allergy Severe DOMINIK Verified 12/31/24 10:26 JOHNSONS SYNDROME levofloxacin (From Levaquin) Allergy Severe Raheel Verified 12/31/24 10:26 Samson's Syndrome penicillin G Allergy Severe Anaphylaxic Verified 12/31/24 10:26 Shock Review of Systems <Warner Arredondo PA-C - Last Filed: 12/31/24 13:06> Review of Systems Narrative: GENERAL: Reports fevers, Denies chills, fatigue, malaise, , sweats. HEENT: Denies sinus pain, ear pain, sore throat, difficulty swallowing, dizziness. RESPIRATORY: Denies dyspnea, cough, wheezing, hemoptysis, sputum. CARDIOVASCULAR: Denies chest pain, palpitations, orthopnea, edema, GASTROINTESTINAL: Denies nausea, vomiting, abdominal pain, diarrhea, constipation, melena. : Reports hematuria, dysuria, urinary frequency MUSCULOSKELETAL: denies weakness, joint pain, or bony pain SKIN: Denies rash, skin lesions, or other NEUROLOGIC: Denies weakness, headache, numbness, change in speech, confusion, seizures, incoordination. PSYCHIATRIC: No concerning psychosocial issues. 12 point review of systems is negative except for those stated above Patient History <Warner Arredondo PA-C - Last Filed: 12/31/24 13:06> Medical History Vargas-Samson syndrome Recurrent UTI 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 Penicillin allergy Generalized anxiety disorder Cognitive changes Post menopausal syndrome Insomnia Anxiety Hidradenitis suppurativa (1999) Depression (2004) Hypothyroidism Current smoker Surgical History History of cholecystectomy History of hysterectomy Family History Mother Kidney disease Father Rheumatic fever tobacco type: e-cigarettes and vaping Exam <Warner Arredondo PA-C - Last Filed: 12/31/24 13:06> Narrative Exam Narrative: GENERAL: Well-developed patient, in mild distress. HEAD: Atraumatic. Normocephalic. EYES: Pupils equal round and reactive. Extraocular motions intact. No scleral icterus. No injection or drainage. ENT: Nose without bleeding, purulent drainage. Throat without erythema, tonsillar hypertrophy or exudate. Airway patent. NECK: Trachea midline. Non tender EXTREMITIES: No edema or joint tenderness. NEURO: AOx3. SKIN: No rash or erythema of visible areas Abdomen: Mild suprapubic tenderness to palpation Back: No CVA tenderness palpation Initial Vital Signs Initial Vital Signs: Vital Signs Temperature 98.9 F 12/31/24 10:26 Pulse Rate 87 12/31/24 10:26 Respiratory Rate 14 12/31/24 10:26 Blood Pressure 127/66 12/31/24 10:26 Pulse Oximetry 96 12/31/24 10:26 Oxygen Delivery Method Room Air 12/31/24 10:26 <Dustin Lewis MD - Last Filed: 12/31/24 15:01> Initial Vital Signs Initial Vital Signs: Vital Signs Temperature 98.9 F 12/31/24 10:26 Pulse Rate 87 12/31/24 10:26 Respiratory Rate 14 12/31/24 10:26 Blood Pressure 127/66 12/31/24 10:26 Pulse Oximetry 96 12/31/24 10:26 Oxygen Delivery Method Room Air 12/31/24 10:26 Course <Warner Arredondo PA-C - Last Filed: 12/31/24 13:06> Orders Ordered: ED Orders 12/31/24 10:31 Urinalysis and Microscopic Stat Urine Culture Stat 12/31/24 11:14 CT abdomen pelvis wo con Stat 12/31/24 12:00 Complete Blood Count AUTO DIFF Stat Comprehensive Metabolic Panel Stat Discontinued Medications Fosfomycin Tromethamine (Fosfomycin 3 Gm Packet) 3 gm PO NOW ONE Stop: 12/31/24 13:03 Last Admin: 12/31/24 13:09 Dose: 3 gm Documented By: [facility] Vital Signs Vital signs: Vital Signs - 8 hr 12/31/24 10:26 12/31/24 13:18 Temperature 98.9 F Pulse Rate 87 66 Respiratory Rate 14 12 Blood Pressure 127/66 124/67 Pulse Oximetry 96 99 Oxygen Delivery Method Room Air Room Air <Dustin Lewis MD - Last Filed: 12/31/24 15:01> Orders Ordered: ED Orders 12/31/24 10:31 Urinalysis and Microscopic Stat Urine Culture Stat 12/31/24 11:14 CT abdomen pelvis wo con Stat 12/31/24 12:00 Complete Blood Count AUTO DIFF Stat Comprehensive Metabolic Panel Stat Discontinued Medications Fosfomycin Tromethamine (Fosfomycin 3 Gm Packet) 3 gm PO NOW ONE Stop: 12/31/24 13:03 Last Admin: 12/31/24 13:09 Dose: 3 gm Documented By: [facility] Vital Signs Vital signs: Vital Signs - 8 hr 12/31/24 10:26 12/31/24 13:18 Temperature 98.9 F Pulse Rate 87 66 Respiratory Rate 14 12 Blood Pressure 127/66 124/67 Pulse Oximetry 96 99 Oxygen Delivery Method Room Air Room Air MDM - Female Genitourinary <Warner Arredondo PA-C - Last Filed: 12/31/24 13:06> Lab Data 12/31/24 12:00 12/31/24 12:00 Labs: Lab Results 12/31/24 12/31/24 Range/Units 10: 12:00 WBC 5.4 (4.5-11.0) X10^3/uL RBC 4.22 (4.0-5.2) X10^6/uL Hgb 13.2 (12.0-16.0) g/dL Hct 39.3 (36-46) % MCV 93.1 (80-100) fL MCH 31.2 (26-34) PG MCHC 33.6 (30-36) % RDW 13.4 (11.6-14.8) % Plt Count 193 (150-400) X10^3/uL Neut % (Auto) 69.4 (50-75) % Lymph % (Auto) 24.9 L (25-40) % [place] % (Auto) 5.2 (3-14) % Eos % (Auto) 0.1 L (2-4) % Baso % (Auto) 0.4 (0-2) % Neut # (Auto) 3700 (0727-3943) /uL Lymph # (Auto) 1300 (2680-8697) /uL [place] # (Auto) 300 (0-900) /uL Eos # (Auto) 0 (0-450) /uL Baso # (Auto) 0 (0-100) /uL Sodium 139 (137-145) mmol/L Potassium 4.0 (3.4-5.1) mmol/L Chloride 105 (98-107) mmol/L Carbon Dioxide 26 (22-32) mmol/L BUN 16 (7-17) mg/dL Creatinine 0.75 (0.52-1.04) mg/dL Estimated GFR > 60 (>60) mL/min BUN/Creatinine Ratio 21.3 (6-22) Glucose 121 H (70-99) mg/dL Calcium 9.0 (8.4-10.2) mg/dL Total Bilirubin 0.5 (0.2-1.3) mg/dL AST 23 (14-36) IU/L ALT 31 (<35) IU/L Alkaline Phosphatase 74 (38-126) U/L Total Protein 7.3 (6.3-8.2) g/dL Albumin 4.1 (3.5-5.0) g/dL Globulin 3.2 (1.7-4.1) g/dL Albumin/Globulin Ratio 1.3 (1.0-2.8) Urine Color Yellow Urine Appearance Cloudy Urine pH 5.0 (4.5-8.0) Ur Specific [place] >=1.030 H (1.000-1.035) Urine Protein 2+ H (Negative) Urine Glucose (UA) Negative (Negative) g/dL Urine Ketones Negative (NEGATIVE) Urine Occult Blood 3+ H (Negative) Urine Nitrate Negative (Negative) Urine Bilirubin Negative (NEGATIVE) Urine Urobilinogen 0.2 (0.2) E.U./dL Ur Leukocyte Esterase Trace H (NEGATIVE) Urine RBC 5-10/hpf H (0-5/HPF) Urine WBC 5-10/hpf H (0-5/HPF) Ur Squamous Epith Cells 1-5 /hpf (0-5/HPF) Calcium Oxalate Crystal Occasional H Urine Bacteria Many (>30) H (None) Ur Culture Indicated? Specimen cultured Vol Urine Centrifuged 10ml (spun) Imaging Data CT scan - abdomen/pelvis: Radiologist's Impression: [place] [address] CT Scan Report Signed Patient: Agata Garcia MR#: [id number] : 1970 Acct:[id number] Age/Sex: 54 / F Date of Service: 12/31/24 Loc: ED Accession Number: [id number] Procedure: CT abdomen pelvis wo con Ordering Provider: Warner Arredondo PA-C PROCEDURE: CT ABDOMEN PELVIS WO CON INDICATIONS: Flank pain, hematuria TECHNIQUE: Axial sections were acquired from the lung bases to the pubic symphysis. Coronal and sagittal reformats were performed. For radiation dose reduction, the following was used: automated exposure control, adjustment of mA and/or kV according to patient size. COMPARISON: None. FINDINGS: Image quality: Diagnostic. Lower Chest: No significant findings. URINARY: Right Kidney: No stones or hydronephrosis. Right Ureter: No hydroureter. Left Kidney: No stones or hydronephrosis. Left Ureter: No hydroureter. Bladder: Significant bladder wall thickening and mild bladder wall edema with inflammatory change in the adjacent fat, highly suspicious for bacterial cystitis. ABDOMEN: Liver: No contour-deforming solid mass. Gallbladder: Absent Biliary ducts: No biliary dilation. Pancreas: No ductal dilation. Spleen: Size is within normal limits. Adrenal Glands: No adrenal nodules. Stomach and Bowel: Normal colonic caliber, without significant wall thickening. Appendectomy Peritoneum: No abnormal intraperitoneal fluid. No free air. Ventral Wall: No hernia. Abdominal Nodes: No enlarged retroperitoneal or mesenteric lymph nodes. Vessels: Aorta and inferior vena cava are normal in size. PELVIS: Pelvic Organs: Uterus is surgically absent. No adnexal masses.. Pelvic Nodes: Unremarkable. Miscellaneous: No inguinal hernias are seen. Bones: Unremarkable. IMPRESSION: 1. No renal stone, ureteral stone, or hydronephrosis. 2. Findings are highly suspicious for bacterial cystitis. Recommend correlation with urine studies. 3. Remote cholecystectomy, hysterectomy, and appendectomy. Dictated by: Reyes Nova M.D. on 12/31/2024 at 12:12 Approved by: Reyes Nova M.D. on 12/31/2024 at 12:14 [facility] Narrative Medical decision making narrative: ED course: This is a 54-year-old female with a month history of a persistent UTI. UA showed evidence of continued UTI. Patient was placed CT scan to make sure ??nothing else was going on? as she reported some bloody clots and was concerned she may have a kidney stone. CT showed no evidence of stone and no evidence of pyelonephritis but did show acute cystitis. We will treat for suspected simple cystitis with MDR risk factors as patient was recently on Bactrim with fosfomycin 1 time dose per up-to-date. She already has been referred to Urology and we will continue to attempt to arrange for sooner appointment. Lab work otherwise unremarkable CC: Dysuria Complicating co-morbidities: As below Data collected from: Previous notes Medical records reviewed: Patient was last seen in this emergency department 3 months ago due to allergic reaction to antibiotics she took. 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 Patient also allergic to Levaquin as well as penicillin. History of recurrent UTIs, depression, hypothyroidism. Patient was seen in the walk-in clinic due to UTI symptoms roughly a month ago and it was prescribed Macrobid for 5 days. She then went to the walk-in clinic 2 weeks later due to UTI symptoms it was prescribed a course of Macrobid for 7 days and referral to Urology. Patient was seen at the walk-in clinic 10 days after that but developed flank pain it was given a 10 day course of Bactrim. She was then seen 2 weeks after that and was instructed to wait for culture to treat she has been on multiple courses of antibiotics. Differential considered, but not limited to: Complicated cystitis, simple cystitis, pyelonephritis, nephrolithiasis Exam documented above, pertinent findings include: No flank pain or CVA tenderness to palpation Lab Test results independently reviewed as above. Pertinent findings: UA positive for evidence of infection, no leukocytosis, CMP unremarkable Imaging studies independently reviewed: CT showed no evidence of stone but did show evidence of acute simple cystitis Scores Used: None MIPS Elements: None Consultations: None Treatments: 1 time dose of fosfomycin Re-evaluations: None Discussion: Discussed plan with the patient was comfortable with the plan Diagnosis: Acute simple cystitis Disposition: see below, along with detailed discharge instructions that have been reviewed with patient as well as indications for ED re-evaluation and additional outpatient follow up <Dustin Lewis MD - Last Filed: 12/31/24 15:01> Lab Data Labs: Lab Results 12/31/24 12/31/24 Range/Units 10: 12:00 WBC 5.4 (4.5-11.0) X10^3/uL RBC 4.22 (4.0-5.2) X10^6/uL Hgb 13.2 (12.0-16.0) g/dL Hct 39.3 (36-46) % MCV 93.1 (80-100) fL MCH 31.2 (26-34) PG MCHC 33.6 (30-36) % RDW 13.4 (11.6-14.8) % Plt Count 193 (150-400) X10^3/uL Neut % (Auto) 69.4 (50-75) % Lymph % (Auto) 24.9 L (25-40) % [place] % (Auto) 5.2 (3-14) % Eos % (Auto) 0.1 L (2-4) % Baso % (Auto) 0.4 (0-2) % Neut # (Auto) 3700 (2794-6011) /uL Lymph # (Auto) 1300 (1508-0904) /uL [place] # (Auto) 300 (0-900) /uL Eos # (Auto) 0 (0-450) /uL Baso # (Auto) 0 (0-100) /uL Sodium 139 (137-145) mmol/L Potassium 4.0 (3.4-5.1) mmol/L Chloride 105 (98-107) mmol/L Carbon Dioxide 26 (22-32) mmol/L BUN 16 (7-17) mg/dL Creatinine 0.75 (0.52-1.04) mg/dL Estimated GFR > 60 (>60) mL/min BUN/Creatinine Ratio 21.3 (6-22) Glucose 121 H (70-99) mg/dL Calcium 9.0 (8.4-10.2) mg/dL Total Bilirubin 0.5 (0.2-1.3) mg/dL AST 23 (14-36) IU/L ALT 31 (<35) IU/L Alkaline Phosphatase 74 (38-126) U/L Total Protein 7.3 (6.3-8.2) g/dL Albumin 4.1 (3.5-5.0) g/dL Globulin 3.2 (1.7-4.1) g/dL Albumin/Globulin Ratio 1.3 (1.0-2.8) Urine Color Yellow Urine Appearance Cloudy Urine pH 5.0 (4.5-8.0) Ur Specific [place] >=1.030 H (1.000-1.035) Urine Protein 2+ H (Negative) Urine Glucose (UA) Negative (Negative) g/dL Urine Ketones Negative (NEGATIVE) Urine Occult Blood 3+ H (Negative) Urine Nitrate Negative (Negative) Urine Bilirubin Negative (NEGATIVE) Urine Urobilinogen 0.2 (0.2) E.U./dL Ur Leukocyte Esterase Trace H (NEGATIVE) Urine RBC 5-10/hpf H (0-5/HPF) Urine WBC 5-10/hpf H (0-5/HPF) Ur Squamous Epith Cells 1-5 /hpf (0-5/HPF) Calcium Oxalate Crystal Occasional H Urine Bacteria Many (>30) H (None) Ur Culture Indicated? Specimen cultured Vol Urine Centrifuged 10ml (spun) Discharge Plan Departure Patient Disposition: Home Clinical Impression: Acute bacterial simple cystitis Activity Restrictions/Additional Instructions: Thank you for coming to the [facility] Emergency Department today. The 1 time dose of antibiotics given here today should be enough to treat the infection. I do recommend he continue to call urologist office to see if they have a sooner appointment. Your CT showed no evidence of a infection affecting your kidneys and no evidence of a kidney stone. Please return to the emergency department if you develop any worsening fevers, nausea, vomiting, or any other concerning signs or symptoms. I hope you feel better soon. Please follow up with your primary care provider within a week if your symptoms continue. If you do not have a primary care provider please contact the [facility] Resource line at [phone]. They will ask some questions about your medical history and help you get set up with a provider in the community. Prescriptions: No Action estradiol 0.01 % (0.1 mg/gram) cream 1 appful vaginal DAILY Qty: 42.5 0RF Rx Instructions: daily for 2 weeks, then 2-3 times weekly phenazopyridine [Pyridium] 200 mg tablet 200 mg PO TID PRN (Reason: pain) Qty: 6 0RF phenazopyridine [Pyridium] 200 mg tablet 200 mg PO TID 0 Days Qty: 6 0RF levothyroxine 88 mcg tablet 88 mcg PO DAILY Qty: 90 3RF phenazopyridine [Pyridium] 200 mg tablet 200 mg PO TID PRN (Reason: pain) Qty: 6 0RF phenazopyridine [Pyridium] 200 mg tablet 200 mg PO TID 0 Days Qty: 6 0RF vitamin D3-vitamin K2 1,250-200 mcg capsule PO DAILY Rx Instructions: Patients dose is D3 10,000U and K2 200mcg prednisone 10 mg tablets,dose pack See Rx Instructions .ROUTE .COMPLEX Qty: 48 0RF Rx Instructions: orally per package directions Ashwaganda PO DAILY sertraline 100 mg tablet 150 mg PO DAILY Qty: 45 3RF Referrals: Kell Romero MD [Primary Care Provider, Family Practice] Stand Alone Forms: Patient Portal/API ED Sign-out <Dustin Lewis MD - Last Filed: 12/31/24 15:01> Cosign ED Attending Cososmanyature Attestation: I was immediately available in the department for consultation. ?This documentation has been reviewed and I agree with assessment and plan. Supervised by Dustin Lewis MD
[2024-12-31 11:42] LABS: Appearance Urine UA CLOUDY; Bilirubin Urine UA NEGATIVE (NEGATIVE); Color Urine UA YELLOW; Glucose Urine UA NEGATIVE (Negative); Ketones Urine UA NEGATIVE (NEGATIVE); Leukocyte Esterase Urine UA TRACE (NEGATIVE); Nitrite Urine UA NEGATIVE (Negative); Occult Blood Urine UA 3+ (Negative); Protein Urine UA 2+ (Negative); Specific Gravity Urine UA >=1.030 (1.000-1.035); Urobilinogen Urine UA 0.2 E.U./dL (0.2)
[2024-12-31 11:44] LABS: pH Urine UA 5.0 (4.5-8.0)
[2024-12-31 11:52] LABS: Culture Indicated Urine Specimen Cultured
[2024-12-31 12:08] LABS: Add Manual Diff / Slide Review NO; Hematocrit 39.3 % (36-46); Hemoglobin 13.2 g/dL (12.0-16.0); Lymphocytes Absolute Auto 1300 /uL (1100-4500); Mean Corpuscular HGB Conc 33.6 % (30-36); Mean Corpuscular Hemoglobin 31.2 PG (26-34); Mean Corpuscular Volume 93.1 fL (80-100); Platelet Count 193 X10^3/uL (150-400)
[2024-12-31 12:28] LABS: Alanine Aminotransferase 31 IU/L (<35); Albumin 4.1 g/dL (3.5-5.0); Albumin Globulin Ratio 1.3 (1.0-2.8); Alkaline Phosphatase 74 U/L (38-126); Blood Urea Nitrogen 16 mg/dL (7-17); Calcium 9.0 mg/dL (8.4-10.2); Carbon Dioxide 26 mmol/L (22-32); Chloride 105 mmol/L (98-107); Estimated Glomerular Filt Rate > 60 mL/min (>60); Globulin 3.2 g/dL (1.7-4.1); Glucose 121 mg/dL (70-99); HEMOLYSIS < 15 (0-50); Potassium 4.0 mmol/L (3.4-5.1); Sodium 139 mmol/L (137-145); Total Protein 7.3 g/dL (6.3-8.2)
[2024-12-31] MEDS: FOSFOMYCIN 3 GM PACKET PO (13:09)
[2024-12-31 13:18] VITALS: BP 124/67; PULSE 66; RESP 12; O2SAT 99
== END 2024-12-31 13:18 | disposition home or self-care (01) ==
PROVIDERS: Emergency Provider Physician Assistant Medical; Family Provider Physician Assistant; PCP Family Medicine
DX: N30.00 Acute cystitis without hematuria (principal)
CPT/HCPCS: 36415; 74176; 80053; 81001; 85025; 87086; 99283; 99284

== ENCOUNTER → 2025-01-14 11:21 | Outpatient (CLI) | payer OTHER, SELFPAY ==
[2024-09-08 13:19] VITALS: BMI 31.3
== END ==
PROVIDERS: Family Provider Physician Assistant; PCP Family Medicine; Visit Provider Nurse Practitioner Family
DX: N89.8 Other specified noninflammatory disorders of vagina (principal); R39.15 Urgency of urination
CPT/HCPCS: 87077; 87086; 87210

== ENCOUNTER → 2025-03-02 14:38 | Outpatient (CLI) | payer OTHER, SELFPAY ==
[2024-09-08 13:19] VITALS: BMI 31.3
[2025-03-02 15:25] LABS: Add Manual Diff / Slide Review NO; Hematocrit 41.6 % (36-46); Hemoglobin 14.1 g/dL (12.0-16.0); Lymphocytes Absolute Auto 1500 /uL (1100-4500); Mean Corpuscular HGB Conc 34.0 % (30-36); Mean Corpuscular Hemoglobin 31.2 PG (26-34); Mean Corpuscular Volume 91.7 fL (80-100); Platelet Count 200 X10^3/uL (150-400)
[2025-03-02 16:01] LABS: Alanine Aminotransferase 29 IU/L (<35); Albumin 4.4 g/dL (3.5-5.0); Albumin Globulin Ratio 1.4 (1.0-2.8); Alkaline Phosphatase 88 U/L (38-126); Blood Urea Nitrogen 14 mg/dL (7-17); Calcium 9.4 mg/dL (8.4-10.2); Carbon Dioxide 26 mmol/L (22-32); Chloride 107 mmol/L (98-107); Cholesterol 171 mg/dL (140-199); Estimated Glomerular Filt Rate > 60 mL/min (>60); Globulin 3.1 g/dL (1.7-4.1); Glucose 94 mg/dL (70-99); HDL Cholesterol 54 mg/dL (40-60); HEMOLYSIS < 15 (0-50); Hemoglobin A1C% w Est Avg Glu 5.4 % (4.0-6.0); Potassium 4.0 mmol/L (3.4-5.1); Sodium 141 mmol/L (137-145); Total Protein 7.5 g/dL (6.3-8.2); Triglycerides 114 mg/dL (35-150)
[2025-03-02 16:36] LABS: TSH w/ Reflex to FT4 2.09 uIU/mL (0.47-4.68)
== END ==
PROVIDERS: Family Provider Physician Assistant; PCP Family Medicine; Referring Provider Family Medicine; Visit Provider Family Medicine
DX: N39.0 Urinary tract infection, site not specified (principal); E03.9 Hypothyroidism, unspecified; F32.9 Major depressive disorder, single episode, unspecified; Z13.6 Encounter for screening for cardiovascular disorders
CPT/HCPCS: 36415; 80053; 80061; 83036; 84443; 85025